=== PATIENT | female | born 1970 | race Caucasian/White ===

== ENCOUNTER 2017-06-13 15:26 | Inpatient (IN) | payer OTHER ==
--- NOTE | 2017-06-13 17:21 | RAD REPORT ---
EXAM DESCRIPTION: RAD - Chest Single View - 06/13/2017 5:15 pm CLINICAL HISTORY: ^Abdominal distention;Pain COMPARISON: CR; Chest 03/07/2012; . TECHNIQUE: AP portable chest image was obtained 1710 hrs . FINDINGS: Lungs are clear. Heart and vasculature are normal. No measurable pleural effusion and no p neumothorax. No gross bony abnormality seen. No acute aortic findings suspected. IMPRESSION: No acute cardiopulmonary process.
[2017-06-13] MEDS ORDERED: ONDANSETRON 4 MG/2 ML VIAL ONE (17:26)
[2017-06-13 17:59] LABS: Absolute Lymphocytes (CBC) 3.7 K/uL (0.7-4.9); Absolute Monocytes 0.5 K/uL (0.1-1.3); Absolute Neutrophil 6.4 K/uL (1.8-8.0); Basophils % 1.3 % (0-1.3); Eosinophils % 2.4 % (0-4.4); Hematocrit 43.7 % (36.0-45.0); Lymphocytes % 33.3 % (15.3-44.8); MCH 29.9 pg (27.0-35.0); MCV 91.5 fL (80-100); MPV 9.4 fL (7.6-11.3); Monocytes % 4.7 % (3.3-12.3); RBC Red Blood Cell Count 4.77 M/uL (3.86-4.86)
[2017-06-13] MEDS ORDERED: NA CHLORIDE 0.9% 1,000 ML ONE (18:02)
[2017-06-13] MEDS ORDERED: FENTANYL CITR 100 MCG/2 ML ONE (18:02)
[2017-06-13] MEDS ORDERED: CIPROFLOXACIN 400mg IV 400 MG/200 ML BAG IV ONE (18:02)
[2017-06-13] MEDS ORDERED: METRONIDAZOLE 500mg IVPB 500 MG/100 ML BAG IV ONE (18:02)
[2017-06-13 18:03] LABS: Protime INR 0.92
[2017-06-13 18:07] LABS: Potassium 3.8 mEq/L (3.6-5.0)
[2017-06-13 18:13] LABS: Albumin 3.9 g/dL (3.2-5.5); Bilirubin Direct 0.1 mg/dL (0-0.2); Bilirubin Total 0.3 mg/dL (0.3-1.2); Protein, Total 7.3 g/dL (6.0-8.3)
[2017-06-13 18:16] LABS: CKMB Creatine Kinase MB 0.9 ng/ml (0.3-4.0)
[2017-06-13 18:30] LABS: Urine Blood NEGATIVE (NEG); Urine Glucose NEGATIVE (NEG); Urine Protein NEGATIVE (NEG); Urine Specific Gravity 1.025 (1.005-1.030); Urine pH 6.5 (5.0-7.0)
[2017-06-13 18:37] LABS: Barbiturates NEGATIVE; Benzodiazepines POSITIVE; Cocaine NEGATIVE; Opiates POSITIVE; Phencyclidine NEGATIVE; THC Cannibis NEGATIVE
[2017-06-13 18:42] LABS: METHAMPHETAM POSITIVE
--- NOTE | 2017-06-13 18:59 | RAD REPORT ---
EXAM DESCRIPTION: CTAbdomen Pelvis W Contrast - 06/13/2017 6:48 pm CLINICAL HISTORY: Abdominal pain. COMPARISON: 05/07/2017 TECHNIQUE: Biphasic CT imaging of the abdomen and pelvis was performed with 100 ml non-ionic IV cont rast. All CT scans are performed using dose optimization technique as appropriate and may include automated exposure control or mA/KV adjustment according to patient size. FINDINGS: The lung bases are clear.Several gallstones are present in the gallbladder with a stone li subhash in the cystic duct. The gallbladder appears mildly distended. Mild diffuse fatty liver is seen. No intrahepatic biliary dilatation. The spleen, pancreas, adrenal g lands kidneys are within normal limits. No bowel obstruction, free air, free fluid or abscess. Sigmoid diverticulosis without diverticulitis. The appendix is normal. No evidence of significant lymphadenopathy. No suspicious bony findings. IMPRESSION: Cholelithiasis with a stone likely present in the cystic duct. Gallbladder distention is also seen. Consider followup gallbladder sonography for further evaluation.
--- NOTE | 2017-06-13 19:16 | ER ---
Nurse's Notes [facility] Name: Nany Bhat Age: 47 yrs Sex: Female : 1970 Arrival Date: 06/13/2017 Time: 15:29 Bed 26 Private MD: Ino Faye E Diagnosis: Cholelithiasis;Abdominal tenderness;Acute pancreatitis Presentation: 06/13 15:50 Presenting complaint: Patient states: I have a bad pancreas. I started hurting in my RUQ about 1730 last night. vomiting and diarrhea as well. Transition of care: patient was not received from another setting of care. Onset of symptoms was June 12, 2017 at 17:30. Initial Sepsis Screen: Does the patient meet any 2 criteria? No. Patient's initial sepsis screen is negative. Does the patient have a suspected source of infection? No. Patient's initial sepsis screen is negative. Care prior to arrival: None. 15:50 Method Of Arrival: Ambulatory 15:50 Acuity: ANTHONY 3 Triage Assessment: 15:53 General: Appears in no apparent distress. uncomfortable, Behavior is calm, cooperative, ch appropriate for age. Pain: Complains of pain in right upper quadrant Pain currently is 9 out of 10 on a pain scale. GI: Reports upper abdominal pain, diarrhea, vomiting. 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 - Social history:: Smoking status: Patient uses tobacco products, denies chronic smoking, but will smoke occasionally, Patient/guardian denies using alcohol, street drugs. - Family history:: not pertinent. Screenin:30 Abuse screen: Denies threats or abuse. Denies injuries from another. Nutritional kr2 screening: No deficits noted. Tuberculosis screening: No symptoms or risk factors identified. Fall Risk IV access (20 points). Assessment: 17:30 General: Appears in no apparent distress. comfortable, well developed, well nourished, kr2 Behavior is calm, cooperative. Pain: Complains of pain in left upper quadrant and right upper quadrant Pain radiates to abdomen Pain currently is 10 out of 10 on a pain scale. Quality of pain is described as aching, tender, Is continuous, Alleviated by nothing. Aggravated by increased activity. Neuro: Level of Consciousness is awake, alert, obeys commands, Oriented to person, place, time, situation. Cardiovascular: Capillary refill < 3 seconds in bilateral fingers Patient's skin is warm and dry. Respiratory: Airway is patent Respiratory effort is even, unlabored, Respiratory pattern is regular, symmetrical. GI: Bowel sounds present X 4 quads. Abd is soft X 4 quads Abdomen is tender to palpation in right upper quadrant and left upper quadrant Reports nausea, vomiting. : Urine is cloudy. EENT: Oral mucosa is dry. Derm: Skin is intact, is healthy with good turgor, Skin is pink, warm \T\ dry. Musculoskeletal: Circulation, motion, and sensation intact. 18:51 Reassessment: Patient appears in no apparent distress at this time. Patient and/or kr2 family updated on plan of care and expected duration. Pain level reassessed. Patient is alert, oriented x 3, equal unlabored respirations, skin warm/dry/pink. Patient states symptoms have improved. Vital Signs: 15:53 BP 110 / 76; Pulse 84; Resp 16; Temp 98.5; Pulse Ox 99% on R/A; Weight 90.72 kg; Height ch 5 ft. 1 in. (154.94 cm); Pain 9/10; 17:30 BP 142 / 65; Pulse 80; Resp 18; Pulse Ox 100% on R/A; kr2 18:59 BP 113 / 82; Pulse 80; Resp 18; Pulse Ox 100% on R/A; kr2 20:54 BP 111 / 45; Pulse 78; Resp 18; Temp 98.5(O); Pulse Ox 100% on R/A; kr2 15:53 Body Mass Index 37.79 (90.72 kg, 154.94 cm) ED Course: 15:29 Patient arrived in ED. mr 15:29 Ino Faye MD is Private Physician. mr 15:51 Triage completed. 15:53 Arm band placed on left wrist. Patient placed in waiting room. 16:36 Vickey Kelly MD is Attending Physician. jasmin 17:00 Patient has correct armband on for positive identification. Bed in low position. Call kr2 light in reach. Side rails up X2. Adult w/ patient. hall monitor on. Pulse ox on. NIBP on. Door closed. Lights dimmed. Warm blanket given. Head of bed elevated. 17:12 Hailee Osman, RN is Primary Nurse. kr2 17:13 X-ray completed. Portable x-ray completed in exam room. Patient tolerated procedure ml well. 17:14 XRAY Chest (1 view) In Process Unspecified. EDMS 17:35 Missed attempt(s): 22 gauge in right forearm. kr2 17:40 Inserted saline lock: 22 gauge in left forearm, using aseptic technique. Blood kr2 collected. 18:[address] via wheelchair. 18:48 CT Abd/Pelvis - W/Contrast In Process Unspecified. EDMS 19:13 Marimar Gifford MD is Hospitalizing Provider. jasmin 19:33 Ultrasound completed. Patient tolerated well. cy 19:36 US Abdomen Limited In Process Unspecified. EDMS 20:55 No provider procedures requiring assistance completed. Patient admitted, IV remains in kr2 place. Administered Medications: 18:12 Drug: Flagyl 500 mg Volume: 100 ml; Route: IVPB; Rate: 200 ml/hr; Infused Over: 30 kr2 mins; Site: left antecubital; 18:44 Follow up: Response: No adverse reaction; IV Status: Completed infusion kr2 18:13 Drug: NS 0.9% 1000 ml Route: IV; Rate: 1 bolus; Site: left antecubital; kr2 19:40 Follow up: Response: No adverse reaction; IV Status: Completed infusion kr2 18:13 Drug: Pepcid 20 mg Route: IVP; Site: left antecubital; kr2 18:45 Follow up: Response: No adverse reaction kr2 18:13 Drug: fentaNYL (PF) 50 mcg Route: IVP; Site: left antecubital; kr2 18:44 Follow up: Response: No adverse reaction; Pain is decreased kr2 18:13 Drug: Zofran 4 mg Route: IVP; Site: left antecubital; kr2 18:45 Follow up: Response: No adverse reaction kr2 18:57 Drug: Cipro 400 mg Volume: 200 ml; Route: IVPB; Infused Over: 60 mins; Site: left kr2 antecubital; 19:57 Follow up: Response: No adverse reaction; IV Status: Completed infusion kr2 19:21 Drug: fentaNYL (PF) 50 mcg Route: IVP; Site: left antecubital; kr2 19:40 Follow up: Response: No adverse reaction; Pain is decreased kr2 19:41 Drug: NS 0.9% 1000 ml Route: IV; Rate: 1 bolus; Site: left antecubital; kr2 21:50 Follow up: Response: No adverse reaction; IV Status: Completed infusion kr2 Outcome: 19:15 Decision to Hospitalize by Provider. jasmin 20:55 Admitted to Med/surg accompanied by tech, via wheelchair, room 228, with chart, Report kr2 called to Jeanne 20:55 Condition: stable 20:55 Instructed on the need for admit, Demonstrated understanding of instructions. 21:50 Patient left the ED. kr2 Signatures: Dispatcher [employer] EDMS Danisha Donahue, RN Vickey Pruitt ch, MD MD cha Rivera, Maria mr Lopez, Leyla Snow Karey, RN RN kr2 Bailey Esqueda
--- NOTE | 2017-06-13 19:16 | EDPHYS ---
Physician Documentation [facility] Name: Nany Bhat Age: 47 yrs Sex: Female : 1970 Arrival Date: 06/13/2017 Time: 15:29 Bed 26 Private MD: Ino Faye E ED Physician Vickey Kelly HPI: 06/13 16:50 This 47 yrs old Female presents to ER via Ambulatory with complaints of jasmin Abdominal Pain. 16:50 The patient presents with abdominal pain in the upper abdomen, in the lower abdomen. jasmin Onset: The symptoms/episode began/occurred 3 day(s) ago. The symptoms do not radiate. Associated signs and symptoms: none. The symptoms are described as burning, constant, sharp. Modifying factors: The symptoms are alleviated by nothing, the symptoms are aggravated by food, nothing. Severity of pain: At its worst the pain was moderate in the emergency department the pain is unchanged. The patient has experienced similar episodes in the past, multiple times. 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 - Social history:: Smoking status: Patient uses tobacco products, denies chronic smoking, but will smoke occasionally, Patient/guardian denies using alcohol, street drugs. - Family history:: not pertinent. ROS: 16:50 Constitutional: Negative for fever, chills, and weight loss, Eyes: Negative for injury, jasmin pain, redness, and discharge, ENT: Negative for injury, pain, and discharge, Neck: Negative for injury, pain, and swelling, Cardiovascular: Negative for chest pain, palpitations, and edema, Respiratory: Negative for shortness of breath, cough, wheezing, and pleuritic chest pain, Back: Negative for injury and pain, : Negative for injury, bleeding, discharge, and swelling, MS/Extremity: Negative for injury and deformity, Skin: Negative for injury, rash, and discoloration, Neuro: Negative for headache, weakness, numbness, tingling, and seizure, Psych: Negative for depression, anxiety, suicide ideation, homicidal ideation, and hallucinations, Allergy/Immunology: Negative for hives, rash, and allergies, Endocrine: Negative for neck swelling, polydipsia, polyuria, polyphagia, and marked weight changes. 16:50 Abdomen/GI: Positive for abdominal pain, nausea and vomiting. Exam: 16:50 Constitutional: This is a well developed, well nourished patient who is awake, alert, jasmin and in no acute distress. Head/Face: Normocephalic, atraumatic. Eyes: Pupils equal round and reactive to light, extra-ocular motions intact. Lids and lashes normal. Conjunctiva and sclera are non-icteric and not injected. Cornea within normal limits. Periorbital areas with no swelling, redness, or edema. ENT: Nares patent. No nasal discharge, no septal abnormalities noted. Tympanic membranes are normal and external auditory canals are clear. Oropharynx with no redness, swelling, or masses, exudates, or evidence of obstruction, uvula midline. Mucous membranes moist. Neck: Trachea midline, no thyromegaly or masses palpated, and no cervical lymphadenopathy. Supple, full range of motion without nuchal rigidity, or vertebral point tenderness. No Meningismus. Chest/axilla: Normal chest wall appearance and motion. Nontender with no deformity. No lesions are appreciated. Cardiovascular: Regular rate and rhythm with a normal S1 and S2. No gallops, murmurs, or rubs. Normal PMI, no JVD. No pulse deficits. Respiratory: Lungs have equal breath sounds bilaterally, clear to auscultation and percussion. No rales, rhonchi or wheezes noted. No increased work of breathing, no retractions or nasal flaring. Back: No spinal tenderness. No costovertebral tenderness. Full range of motion. Skin: Warm, dry with normal turgor. Normal color with no rashes, no lesions, and no evidence of cellulitis. MS/ Extremity: Pulses equal, no cyanosis. Neurovascular intact. Full, normal range of motion. Neuro: Awake and alert, GCS 15, oriented to person, place, time, and situation. Cranial nerves II-XII grossly intact. Motor strength 5/5 in all extremities. Sensory grossly intact. Cerebellar exam normal. Normal gait. Psych: Awake, alert, with orientation to person, place and time. Behavior, mood, and affect are within normal limits. 16:50 Abdomen/GI: Inspection: distension, Bowel sounds: normal, Palpation: mild abdominal tenderness, moderate abdominal tenderness, in the umbilical area, right upper quadrant and left upper quadrant. Vital Signs: 15:53 BP 110 / 76; Pulse 84; Resp 16; Temp 98.5; Pulse Ox 99% on R/A; Weight 90.72 kg; Height ch 5 ft. 1 in. (154.94 cm); Pain 9/10; 17:30 BP 142 / 65; Pulse 80; Resp 18; Pulse Ox 100% on R/A; kr2 18:59 BP 113 / 82; Pulse 80; Resp 18; Pulse Ox 100% on R/A; kr2 20:54 BP 111 / 45; Pulse 78; Resp 18; Temp 98.5(O); Pulse Ox 100% on R/A; kr2 15:53 Body Mass Index 37.79 (90.72 kg, 154.94 cm) [facility]: 16:36 Patient medically screened. [facility] 16:53 Data reviewed: vital signs, nurses notes, lab test result(s), EKG, radiologic studies. [facility] 06/13 16:50 Order name: Basic Metabolic Panel; Complete Time: 18:20 [facility] 06/13 16:50 Order name: BNP; Complete Time: 19:09 [facility] 06/13 16:50 Order name: CBC with Diff; Complete Time: 18:20 [facility] 06/13 16:50 Order name: Ckmb; Complete Time: 18:20 [facility] 06/13 16:50 Order name: CPK; Complete Time: 18:20 [facility] 06/13 16:50 Order name: LFT's; Complete Time: 18:20 [facility] 06/13 16:50 Order name: Magnesium; Complete Time: 18:20 [facility] 06/13 16:50 Order name: PT-INR; Complete Time: 18:20 [facility] 06/13 16:50 Order name: Ptt, Activated; Complete Time: 18:20 [facility] 06/13 16:50 Order name: Troponin (emerg Dept Use Only); Complete Time: 19:09 [facility] 06/13 16:50 Order name: Lipase; Complete Time: 18:20 [facility] 06/13 16:50 Order name: UDS; Complete Time: 19:09 [facility] 06/13 16:50 Order name: Urine Culture [facility] 06/13 17:03 Order name: AMMONIA; Complete Time: 18:20 [facility] 06/13 16:50 Order name: XRAY Chest (1 view); Complete Time: 17:51 [facility] 06/13 16:50 Order name: EKG; Complete Time: 16:51 [facility] 06/13 16:50 Order name: CT Abd/Pelvis - W/Contrast; Complete Time: 19:09 [facility] 06/13 18:24 Order name: Urine Dipstick--Ancillary (enter results); Complete Time: 19: 06/13 18:24 Order name: Urine --Ancillary (enter results); Complete Time: 19:09 06/13 19:10 Order name: US Abdomen Limited [facility] 06/13 19:23 Order name: CONS Physician Consult [facility] 06/13 19:23 Order name: Cholangiogram [facility] 06/13 16:50 Order name: Cardiac monitoring; Complete Time: 18:21 [facility] 06/13 16:50 Order name: EKG - Nurse/Tech; Complete Time: 18:21 [facility] 06/13 16:50 Order name: IV Saline Lock; Complete Time: 18:22 [facility] 06/13 16:50 Order name: Labs collected and sent; Complete Time: 18:22 [facility] 06/13 16:50 Order name: O2 Per Protocol; Complete Time: 18:22 [facility] 06/13 16:50 Order name: O2 Sat Monitoring; Complete Time: 18:22 [facility] 06/13 16:50 Order name: Urine Dipstick-Ancillary (obtain specimen); Complete Time: 18:22 [facility] 06/13 16:50 Order name: Urine Test (obtain specimen); Complete Time: 18:46 [facility] 06/13 19:23 Order name: CONS Physician Consult EDME Administered Medications: 18:12 Drug: Flagyl 500 mg Volume: 100 ml; Route: IVPB; Rate: 200 ml/hr; Infused Over: 30 kr2 mins; Site: left antecubital; 18:44 Follow up: Response: No adverse reaction; IV Status: Completed infusion kr2 18:13 Drug: NS 0.9% 1000 ml Route: IV; Rate: 1 bolus; Site: left antecubital; kr2 19:40 Follow up: Response: No adverse reaction; IV Status: Completed infusion kr2 18:13 Drug: Pepcid 20 mg Route: IVP; Site: left antecubital; kr2 18:45 Follow up: Response: No adverse reaction kr2 18:13 Drug: fentaNYL (PF) 50 mcg Route: IVP; Site: left antecubital; kr2 18:44 Follow up: Response: No adverse reaction; Pain is decreased kr2 18:13 Drug: Zofran 4 mg Route: IVP; Site: left antecubital; kr2 18:45 Follow up: Response: No adverse reaction kr2 18:57 Drug: Cipro 400 mg Volume: 200 ml; Route: IVPB; Infused Over: 60 mins; Site: left kr2 antecubital; 19:57 Follow up: Response: No adverse reaction; IV Status: Completed infusion kr2 19:21 Drug: fentaNYL (PF) 50 mcg Route: IVP; Site: left antecubital; kr2 19:40 Follow up: Response: No adverse reaction; Pain is decreased kr2 19:41 Drug: NS 0.9% 1000 ml Route: IV; Rate: 1 bolus; Site: left antecubital; kr2 21:50 Follow up: Response: No adverse reaction; IV Status: Completed infusion kr2 Disposition: 06/13/17 19:15 Hospitalization ordered by Marimar Gifford for Inpatient Admission. Preliminary diagnosis are Cholelithiasis, Abdominal tenderness, Acute pancreatitis. - Bed requested for Telemetry/MedSurg (Inpatient). - Status is Inpatient Admission. kr2 - Condition is Fair. - Problem is new. - Symptoms have improved. UTI on Admission? No Signatures: Dispatcher [employer] Danisha Muñiz, RN Elvira Mcallister ch, RN RN dw Anderson, Corey, MD MD cha Reaves, Karey, RN RN kr2
--- NOTE | 2017-06-13 19:45 | RAD REPORT ---
EXAM DESCRIPTION: US - Abdomen Exam Limited - 06/13/2017 7:36 pm CLINICAL HISTORY: Abdominal pain. COMPARISON: 10/28/2016 FINDINGS: The gallbladder demonstrates several gallstones. A gallstone is noted in the region of the gallbladder neck/ cystic duct which is nonmobile. No pericholecystic fluid or gallbladder wall thick ening. The common bile duct is normal measuring 5 mm. The liver demonstrates no findings of intrahepatic biliary dilatation. IMPRESSION: Cholelithiasis without sonographic evidence of acute cholecystitis.
--- NOTE | 2017-06-13 21:28 | P.HP ---
Certification for Inpatient Patient admitted to: Inpatient With expected LOS: >2 Midnights Practitioner: I am a practitioner with admitting privileges, knowledge of patient current condition, hospital course, and medical plan of care. Services: Services provided to patient in accordance with Admission requirements found in Title 42 Section 412.3 of the Code of Federal Regulations Patient History Date of Service: 06/13/17 Reason for admission: cholelithiasis History of Present Illness: Ms Bhat is a 47 years old woman with history of bipolar disorder, methamphetamines abuse, chronic pain syndrome, who start about 2 days ago with abdominal pain. The pain is diffuse but mostly localized in RUQ. She has had fever at home 100.4 F, also nausea, vomiting and diarrhea. Previously, she was diagnosed with cholelithiasis. Today CT abd/pelivis shows again cholelithiasis, with a stone in the cystic duct. In ER she was afebrile, WBC 11K. The intensity of pain was 10/10. Allergies Penicillins Allergy (Intermediate, Verified 10/01/16 08:00) SWELLING/RASH morphine Adverse Reaction (Severe, Verified 10/01/16 08:00) HALLUCINATE/SKIN TURNS RED Home Medications: Nicotine [Nicoderm*] 21 mg TD DAILY #30 10/03/16 Ondansetron HCl [Zofran] 4 mg PO TID PRN #20 tablet 10/03/16 Pantoprazole [Protonix Tab] 40 mg PO DAILY #30 tab 10/03/16 traMADol HCL [Ultram*] 50 mg PO TIDP PRN #15 tab 10/03/16 - Past Medical/Surgical History Diabetic: No -: Hepatitis-C, treated -: Chronic recurrent pancreatitis -: History DVT, treated 1996 -: Tobacco abuse -: Bipolar disorder -: Chronic pain -: Carpal tunnel syndrome -: Hysterectomy -: Carpal tunnel surgery Psychosocial/ Personal History: The patient is single. She has 1 child. She is currently disabled - Family History Father -: Heart disease, Hypertension, Diabetes - Social History Smoking Status: Current some day smoker Counseled patient to stop smoking for: less than 10 minutes Alcohol use: No CD- Drugs: No Caffeine use: No Place of Residence: Home Review of Systems 10-point ROS is otherwise unremarkable Physical Examination - Physical Exam General: Alert, In no apparent distress HEENT: Atraumatic, PERRLA, Mucous membr. moist/pink, EOMI, Sclerae nonicteric Neck: Supple, 2+ carotid pulse no bruit, No LAD, Without JVD or thyroid abnormality Respiratory: Normal air movement Cardiovascular: Regular rate/rhythm, Normal S1 S2 Gastrointestinal: Normal bowel sounds, No tenderness Musculoskeletal: No tenderness Integumentary: No rashes Neurological: Normal speech, Normal strength at 5/5 x4 extr, Normal tone, Normal affect Lymphatics: No axilla or inguinal lymphadenopathy - Studies Laboratory Data (last 24 hrs) 06/13/17 17:20: PT 10.8, INR 0.92, APTT 27.4 06/13/17 17:20: WBC 11.0 H, Hgb 14.3, Hct 43.7, Plt Count 247 06/13/17 17:20: B-Natriuretic Peptide 31 06/13/17 17:20: Sodium 138, Potassium 3.8, BUN 15, Creatinine 0.88, Glucose 94, Magnesium 2.0, Total Bilirubin 0.3, AST 35, ALT 41, Alkaline Phosphatase 46, Lipase 76 H Assessment and Plan - Problems (Diagnosis) (1) Abdominal pain Onset Date: 10/03/16 Current Visit: No Status: Acute Qualifiers: Abdominal location: generalized Qualified Code(s): R10.84 - Generalized abdominal pain (2) Nausea and vomiting Onset Date: 10/03/16 Current Visit: No Status: Acute Qualifiers: Vomiting type: unspecified Vomiting Intractability: unspecified Qualified Code(s): R11.2 - Nausea with vomiting, unspecified (3) Bipolar disorder Onset Date: 10/03/16 Current Visit: No Status: Chronic Qualifiers: Active/Remission status: remission status unspecified Qualified Code(s): F31.9 - Bipolar disorder, unspecified (4) Cholelithiasis Onset Date: 10/03/16 Current Visit: No Status: Chronic Qualifiers: Cholelithiasis location: gallbladder Cholecystitis presence: without cholecystitis Biliary obstruction: without biliary obstruction Qualified Code(s): K80.20 - Calculus of gallbladder without cholecystitis without obstruction (5) Chronic pain Onset Date: 10/03/16 Current Visit: No Status: Chronic Qualifiers: Chronic pain type: other chronic pain Qualified Code(s): G89.29 - Other chronic pain - Plan The patient will be admitted to the hospital due to symptomatic cholelithiasis. No signs of cholecystitis, however, there is a stone in the cystic duct, without dilation. MRCP already ordered. Consult surgery and GI team. Since the patient states that she has had fever, will cover empirically with IV abx. - Advance Directives Does patient have a Living Will: No Does patient have a Durable POA for Healthcare: No - Code Status/Comfort Care Code Status Assessed: Yes Code Status: Full Code
[2017-06-13] MEDS ORDERED: ACETAMINOPHEN 500 MG TAB PO PRN (21:51)
[2017-06-13 22:06] VITALS: BMI 35.8
--- NOTE | 2017-06-13 22:36 | EKG ---
Test Date: 2017-06-13 Test Time: 17:00:24 Performance Improvement Coordinator: ORALIA MEASUREMENT RESULTS: Intervals: Rate: 80 TN: 116 QRSD: 80 QT: 352 QTc: 405 [place]: P: 52 TN: 116 QRS: 48 T: 49 INTERPRETIVE STATEMENTS: Normal sinus rhythm Normal ECG Compared to ECG 10/01/2016 09:25:19 No significant changes Electronically Signed On 06-13-17 22:35:45 CDT by Rafael Britt
[2017-06-13] MEDS: NA CHLORIDE 0.9% 1,000 ML IV SCH (22:43)
[2017-06-13] MEDS: KETOROLAC 30 MG/ML INJ IV PRN (22:45)
--- NOTE | 2017-06-13 22:52 | P.CNS ---
Date of Consult: 06/13/17 PC: I was asked to see this 47-year-old female regards to her right upper quadrant abdominal pain and cholelithiasis HPC: Patient presents emergency room with severe right upper quadrant abdominal pain for diagnosis and treatment. Then having abdominal pain at home for the last day. Pain intensified and she came to the hospital and she did not get relief. PMH: Bipolar, chronic pain PSHx: Previous hysterectomy SOC: Allergic to penicillin, tramadol, and morphine SYS REVIEW: Since she has been in reasonable health O/E awake alert vital signs are stable HEENT: Not clinically jaundice Chest: Chest movement equal bilaterally ABD: Protuberant abdomen, but no fluid thrill. Tender in the right upper quadrant LOCO: Intact DATA: Mildly elevated white cell count, ultrasound shows stones in the gallbladder N in the vicinity of the cystic duct IMPRESSION: Cholelithiasis PLAN: The patient has been admitted at this time for observation pain control. MRCP is common GI consoles have been ordered. Will await the results of these and determine if and when surgical intervention can be done. Thank you
[2017-06-14] MEDS: ALPRAZOLAM 1 MG TABLET PO PRN ×3 (00:33→21:36)
[2017-06-14] MEDS: METRONIDAZOLE 500mg IVPB 500 MG/100 ML BAG IV SCH ×3 (00:34→16:22)
[2017-06-14] MEDS: CIPROFLOXACIN 400mg IV 400 MG/200 ML BAG IV SCH ×2 (02:59→14:02)
[2017-06-14 05:57] LABS: Absolute Lymphocytes (CBC) 2.9 K/uL (0.7-4.9); Absolute Monocytes 0.5 K/uL (0.1-1.3); Basophils % 0.8 % (0-1.3); Eosinophils % 2.6 % (0-4.4); Hematocrit 38.4 % (36.0-45.0); Lymphocytes % 33.2 % (15.3-44.8); MCH 31.2 pg (27.0-35.0); MCV 90.2 fL (80-100); MPV 9.1 fL (7.6-11.3); Monocytes % 5.4 % (3.3-12.3); RBC Red Blood Cell Count 4.26 M/uL (3.86-4.86)
[2017-06-14 06:09] LABS: Albumin 2.9 g/dL (3.2-5.5); Bilirubin Total 0.4 mg/dL (0.3-1.2); Potassium 3.6 mEq/L (3.6-5.0); Protein, Total 5.6 g/dL (6.0-8.3)
[2017-06-14] MEDS ORDERED: KCL 20 MEQ/100 mL IVPB 20 MEQ/100 ML BAG IV SCH (07:00)
[2017-06-14] MEDS ORDERED: SODIUM CHLORIDE 0.9% 10ML INJ IV PRN (07:55)
--- NOTE | 2017-06-14 09:08 | RAD REPORT ---
EXAM DESCRIPTION: MRIAbdomen (Gallbladder) CLINICAL HISTORY: Abdominal pain COMPARISON: 06/13/2017 CT and ultrasound study. FINDINGS: No intrahepatic biliary dilatation is seen. The gallbladder appears mildly distended. The patient has known gallstones, however, they are not well seen on this study. Common bile duct is mildly prominent measuring up to 7 mm. A small hypointensity is seen in the dista l common bile duct suspicious for a small distal common bile duct stone. T2 weighted imaging to liver, spleen, pancreas, adrenal glands and kidneys show no worrisome finding. Benign cortical left renal cyst noted superolateral left kidney measuring 14 mm. No bulky adenopathy or free fluid in the abdomen. IMPRESSION: Small distal common bile duct stone is suspected. No significant biliary dilatation is seen. Cholelithiasis.
[2017-06-14] MEDS: PANTOPRAZOLE 40 MG INJ IVP SCH (09:30)
[2017-06-14] MEDS: KETOROLAC 30 MG/ML INJ IV PRN ×2 (09:30→18:44)
[2017-06-14] MEDS: NA CHLORIDE 0.9% 1,000 ML IV SCH ×2 (09:30→14:02)
--- NOTE | 2017-06-14 19:53 | PN ---
Date of Progress Note: 06/14/2017 Subjective: The patient seen and examined, chart reviewed, and case discussed with RN. The patient had MRCP today, which did show a ductal stone. Her pain is improved, however, not resolved. No furt her nausea and vomiting. Review of Systems: Negative except as above. Medications: Reviewed. Physical Examination: Vital Signs: Temperature 97, heart rate 85, blood pressure 109/70, respirations 16, and O2 96% on ro om air. General: Awake, alert, oriented x3, ill-appearing, morbidly obese female. CV: S1, S2. No murmurs. Regular rate and rhythm. Peripheral pulses present. Respiratory: Moving air well bilaterally. No wheezing. No stridor. No use of accessory muscles Ga strointestinal: Abdomen is soft. Tenderness to palpation in the right upper quadrant and epigastric region. No rebound. Some voluntary guarding is present. Bowel sounds hypoactive. Extremities: No clubbing, cyanosis, edema. Neurologic: Nonfocal. Laboratory Data: Sodium 135, potassium 3.6, chloride 107, CO2 24, BUN 12, creatinine 0.77, glucose 9 7, calcium 8, total bilirubin 0.4, AST 32, ALT 37, alkaline phosphatase 35, albumin 2.9, and lipase 7 6. WBC 8.6, H and H 13.3, 38.4, and platelets 186. MRCP shows small distal common bile duct stone s uspected. No significant biliary dilatation seen. Cholelithiasis. Benign cortical left renal cyst 14 mm. Assessment: A 47-year-old female with; 1.Abdominal pain, right upper quadrant and epigastric secondary to choledocholithiasis. 2.Intractable nausea, vomiting secondary to choledocholithiasis. 3.Choledocholithiasis and cholelithiasis without cholecystitis. No biliary obstruction. Total bili yang is normal. MRCP does show stone. GI has been consulted. May need ERCP. 4.Bipolar disorder. 5.Chronic pain syndrome, stable. We will resume home medications. Plan: Continue IV fluids, IV antibiotics. Follow up with GI recommendations. /[email or web address] Voice ID: [id number] Report ID: [id number]
--- NOTE | 2017-06-14 19:58 | P.PN ---
Date of Service: 06/14/17 S.: Patient states that she feels somewhat better today pain is not as bad. Still has some back issues. Has been up moving around today. Went down for an MRCP. O.: Abdomen soft A: Patient's MRCP apparently came back positive for stone at the distal of the common bile duct. She is to undergo an ERCP tomorrow with Dr. Mcfarland. P: Patient is having her ERCP procedure done tomorrow. I would prefer to wait 2 weeks if possible to take the gallbladder out. We will see how she is once she has her stone removed.
[2017-06-15] MEDS: METRONIDAZOLE 500mg IVPB 500 MG/100 ML BAG IV SCH ×3 (00:31→19:54)
[2017-06-15] MEDS: KETOROLAC 30 MG/ML INJ IV PRN (01:37)
[2017-06-15] MEDS: CIPROFLOXACIN 400mg IV 400 MG/200 ML BAG IV SCH ×2 (01:40→14:21)
[2017-06-15 06:09] LABS: Absolute Lymphocytes (CBC) 2.2 K/uL (0.7-4.9); Absolute Monocytes 0.5 K/uL (0.1-1.3); Absolute Neutrophil 5.2 K/uL (1.8-8.0); Basophils % 0.7 % (0-1.3); Eosinophils % 2.7 % (0-4.4); Hematocrit 40.3 % (36.0-45.0); Lymphocytes % 27.3 % (15.3-44.8); MCV 90.7 fL (80-100); MPV 9.2 fL (7.6-11.3); Monocytes % 6.1 % (3.3-12.3); RBC Red Blood Cell Count 4.45 M/uL (3.86-4.86)
[2017-06-15 06:12] LABS: Potassium 3.9 mEq/L (3.6-5.0)
[2017-06-15] MEDS: NA CHLORIDE 0.9% 1,000 ML IV SCH ×3 (06:27→23:27)
[2017-06-15] MEDS ORDERED: KCL 20 MEQ/100 mL IVPB 20 MEQ/100 ML BAG IV SCH (07:00)
[2017-06-15] MEDS: PANTOPRAZOLE 40 MG INJ IVP SCH (09:51)
[2017-06-15] MEDS: ONDANSETRON 4 MG/2 ML VIAL IV PRN (10:37)
[2017-06-15] MEDS: Morphine 2 MG/2 ML SYR IV PRN ×3 (10:38→19:55)
[2017-06-15] MEDS ORDERED: GENTAMICIN SULF 80 MG/2ML INJ ONE (11:08)
--- NOTE | 2017-06-15 16:28 | PN ---
Date of Progress Note: 06/15/2017 Subjective: The patient seen and examined. Chart reviewed and case discussed with RN. The patient complaining of pain, stating that her pain medication is not helping her. The patient also concerned about keeping the SCDs on; however, continues to go down multiple times to smoke despite advised aga inst smoking. She understands that smoking will delay her wound healing when she goes for surgery. The patient, however, continues to go downstairs to smoke. Review of Systems: Negative except as above. Medications: Reviewed. Physical Examination: Vital Signs: Temperature 97.3, heart rate 79, blood pressure 96/57, respirations 16, O2 97% on room air. General: Awake, alert, oriented x3, some mild distress. Obese female, BMI 35. CV: S1, S2. Regular rate and rhythm. Peripheral pulses present. Respiratory: Moving air well bilaterally. No wheezing. Gastrointestinal: Abdomen is soft. Mild tenderness to palpation in the right upper quadrant. No re bound. No guarding. No rigidity. Extremities: No clubbing, cyanosis, edema. Neurologic: Nonfocal. Laboratory Data: Sodium 136, potassium 3.9, chloride 109, CO2 22, BUN 10, creatinine 0.87, glucose 9 5, calcium 8. WBC 8.2, H and H 13.8 and 40.3, platelets 187. Assessment And Plan: A 47-year-old female with: 1.Abdominal pain, right upper quadrant and epigastric secondary to choledocholithiasis. 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 Blanc. 2.Intractable nausea and vomiting secondary to above, improved. 3.Choledocholithiasis and cholelithiasis. No biliary obstruction. Going for ERCP. 4.Bipolar disorder. 5.Chronic pain syndrome. Adjust pain medications. 6.Gastrointestinal and deep venous thrombosis prophylaxis. PPI and SCDs. No chemical anticoagulati on due to procedure. SA/MODL Voice ID: [id number] Report ID: [id number]
[2017-06-15] MEDS ORDERED: PROPOFOL 200 MG/20 ML VIAL IV ONE (16:56)
[2017-06-15] MEDS ORDERED: LIDOCAINE 1% MPF 5 ML VIAL ONE (16:56)
[2017-06-15] MEDS ORDERED: GLUCAGON 1 MG/VIAL IV ONE (17:57)
--- NOTE | 2017-06-15 18:17 | ENDO RPT ---
[address], [address] ERCP PROCEDURE REPORT EXAM DATE: 06/15/2017 PATIENT NAME: Nany Bhat MR #: [id number] BIRTHDATE: 1970 ATTENDING: Ino Blanc Dr STATUS: inpatient - [facility] PLAYER: Niharika Arredondo and Alise Delgado RN INDICATIONS: The patient is a 47 yr old Female here for an ERCP due to abnormal imaging, abdominal pain, abnormal Liver Function Tests, and gallstone pancreatitis PROCEDURE PERFORMED: ERCP with sphincterotomy and ERCP with stent placement MEDICATIONS: Per Anesthesia. CONSENT: The patient understands the risks and benefits of the procedure and understands that these risks include, but are not limited to: sedation, allergic reaction, infection, perforation and/or bleeding. Alternative means of evaluation and treatment include, among others: physical exam, x-rays, and/or surgical intervention. The patient elects to proceed with this endoscopic procedure. DESCRIPTION OF PROCEDURE: During intra-op preparation period all mechanical medical equipment was checked for proper function. Hand hygiene and appropriate measures for infection prevention was taken. Procedure, possible complications, and alternatives including but not limited to the possibility of bleeding, perforation, tear, infection, sepsis, need for surgery, need for blood transfusion, and anesthesia related complications were explained to the patient. In addition, 5-30% incidence of acute pancreatitis as a result of ERCP were explained. After the risks, benefits and alternatives of the procedure were thoroughly explained, Informed was verified, confirmed and timeout was successfully executed by the treatment team. With the patient in left semi-prone position, medications were administered intravenously.The [id number] ([id number]) was passed from the mouth into the esophagus and further advanced from the esophagus into the stomach. From stomach scope was directed to the descending duodenum. Major papilla was aligned with the duodenoscope. The scope position was confirmed fluoroscopically. Rest of the findings/therapeutics are given below. The scope was then completely withdrawn from the patient and the procedure completed. The pulse, BP, and O2 saturation were monitored and documented by the physician and the nursing staff throughout the entire procedure. The patient was cared for as planned according to standard protocol. The patient was then discharged to recovery in stable condition and with appropriate post procedure care. A stone was found in the cystic duct. The pancreatic duct was filled to the tail and appeared to be normal. Care was taken not to overfill the ductal system. ADVERSE EVENT: none IMPRESSIONS: 1. 3 mm stone in the cystic duct 2. The pancreatic duct was filled to the tail and appeared to be normal. Care was taken not to overfill the ductal system. 3. S/p sphincterotomy and 4. 7-5 plastic stent placement RECOMMENDATIONS: follow-up: GI lab 3 week(s) REPEAT EXAM: Return in 3 week(s) for ERCP. for biliary stent removal Ino Blanc Dr eSigned: Ino Blanc Dr 06/15/2017 6:17 PM cc: Dr. Aviles CPT CODES: ICD9 CODES: PATIENT NAME: Nany Bhat MR#: [id number]
--- NOTE | 2017-06-15 19:20 | RAD REPORT ---
EXAM DESCRIPTION: RAD - Fluoroscopy ERCP - 06/15/2017 6:46 pm FINDINGS: Right upper quadrant fluoroscopy performed. Multiple portable C-arm views were obtained during fluoroscopic assisted ERCP. Image quality is limited. Correlation is needed with findings during real-time fluoroscopic assessmen t.
[2017-06-15 21:32] VITALS: O2SAT 98
[2017-06-15] MEDS: ALPRAZOLAM 1 MG TABLET PO PRN (22:38)
[2017-06-15] MEDS ORDERED: Levofloxacin500mg IV 500 MG/100 ML BAG IV SCH (23:00)
[2017-06-16] MEDS: Morphine 2 MG/2 ML SYR IV PRN ×2 (00:37→04:56)
[2017-06-16] MEDS: METRONIDAZOLE 500mg IVPB 500 MG/100 ML BAG IV SCH ×2 (00:45→08:58)
--- NOTE | 2017-06-16 00:49 | CON ---
Date of Consultation: 06/15/2017 Reason For Consultation: A suspicion of choledocholithiasis with gallstone pancreatitis. History Of Present Illness: This patient is a 47-year-old white female with history of bipolar disor kathryn, ADHD, hepatitis C in the past treated successfully, recurrent pancreatitis, DVT, tobacco and amp hetamine abuse, chronic pain, carpal tunnel syndrome. History Of Present Illness: The patient presented to hospital with few days of right upper quadrant, midepigastric pain 9/10, now down to 5/10 with pain medications. She also had nausea, vomiting, fev ers, and chills. The patient found to have cholelithiasis on ultrasound of abdomen. CT abdomen and pelvis revealed cholelithiasis again, but with stone likely in the cystic duct. MRCP revealed possib le small distal common bile duct stone and multiple stones in gallbladder. The patient admitted to [facility] and GI consultation made. Surgery consultation also made. Past Medical History: Significant for bipolar disorder, ADHD, hepatitis C treated in past successful ly, chronic recurrent pancreatitis, DVT, tobacco abuse, amphetamine abuse, chronic pain syndrome, car pal tunnel syndrome, hysterectomy. Medications In Hospital: Include Tylenol Extra Strength, Xanax, Cipro, Toradol, Flagyl, morphine, Zo pepito, Protonix, normal saline. Allergies: TO PENICILLIN, TRAMADOL, MORPHINE, NICOTINE. Review of Systems: The patient had midepigastric right upper quadrant pain. No nausea, vomiting, fevers, chills. Denie s any melena, hematochezia, hematemesis, coffee-ground emesis, hematuria, dysuria, polydipsia, lower extremity edema, paresthesias, muscle aches, joint aches, backaches, but does have a right upper quad rant midepigastric pain. No chest pain, seizure, syncope lower extremity edema, paresthesias. Posit luis armando for bipolar disorder with depression and anxiety. Social History: She is a . of liver and kidney disease, possibly cancer. She has 4 children, also she says she feels very pride and enjoying. She smokes about a quarter pack of cig arettes per day. No alcohol. Family History: Father and mother both of myocardial infarction. Father had a history of diabe micheal and hypertension by chart review. Physical Examination: Vital Signs: The patient is 5 foot 1 inch, 189 pounds. BMI of 35.8 kg/m2. Temperature 98.8 degrees Fahrenheit, pulse 81, respirations 16, blood pressure 119/54, O2 saturation 99%. HEENT: Normocephalic, atraumatic. Anicteric. Pupils equal, round, and reactive to light. Extraocul ar movements are intact. Oropharynx clear. Neck: Supple. No masses. Respirations: Clear to auscultation bilaterally. Cardiac: Regular rate and rhythm. No gallops or rubs. Gastrointestinal: Positive bowel sounds. No hypoactive, soft, non-distended. Pain in the right upp er quadrant midepigastric area. Positive Arriaza sign though possible equivocal. Extremities: No clubbing, cyanosis, edema. 2+ pulses. NEURO: Alter and oriented X3. Grossly nonfocal. 5/5 motor strength. Sensation to light touch. Laboratory Data: The patient has a white count 11.0 on admission, on the first day, then 8.2, hemogl obin 13.8, hematocrit 40.3, MCV of 91, platelet count of 187, polys 63%, lymphocytes 27%, monocytes 6 %, eosinophils 3%, basophils 1%, PT of 10.8, INR of 0.92, PTT 27.4. The patient has a sodium 136, po tassium 3.9, chloride 109, bicarb 22, BUN of 10, creatinine of 0.9, glucose of 95, calcium of 8.0, to mayra bilirubin of 0.4, AST of 32, ALT of 37, alkaline phosphatase 35, ammonia 42. Troponin I of less than 0.03. Total protein 5.6, albumin 2.9. Lipase elevated on admission at 76. Urinalysis was nega tive including a negative test. Toxicology was positive for opiates, amphetamine and benzo diazepine on admission, at 18:15 on June 13 on admission date. Imaging: Showed ultrasound of abdomen, which revealed cholelithiasis without evidence of cholecystit is. CT of abdomen and pelvis revealed stone likely in the cystic duct with cholelithiasis in the gal lbladder. Gallbladder distention is also seen. An MRCP revealed small distal common bile duct stone suspected and gallstones in the gallbladder. Impression: 1.Choledocholithiasis, possible magnetic resonance cholangiopancreatographies revealed suspicion of small distal common bile duct stone and multiple gallstones in gallbladder. Ultrasound revealed chol elithiasis. CT revealed stone positive in the cystic duct. The patient has right upper quadrant mid epigastric pain, 9/10 maximum, now down to 5/10 on pain medicines. Positive for nausea, vomiting, fe vers, chills as well. 2.Gallstone pancreatitis. Elevated lipase to 76 with right upper quadrant and epigastric pain. The CT scan did not reveal pancreatitis, but 2/3 pain and elevated lipase can definite diagnosis of panc reatitis within this case, is likely gallstone pancreatitis. 3.Sepsis. White count of 11.0 on admission with IV antibiotics down to an 8.2. 4.History of bipolar disorder, attention deficit hyperactivity disorder, hepatitis C, successfully t reated in the past, chronic recurrent pancreatitis, deep vein thrombosis, tobacco and amphetamine abu se, chronic pain, carpal tunnel syndrome, hysterectomy. Recommendation: 1.Proceed with ERCP. Keep patient n.p.o. 2.Continue IV fluids and IV antibiotics. 3.Continue p.r.n. pain medications and antiemetics. 4.Agree with surgery consultation. JOSSY Voice ID: [id number] Report ID: [id number]
[2017-06-16] MEDS: ONDANSETRON 4 MG/2 ML VIAL IV PRN ×2 (01:31→07:40)
[2017-06-16 06:47] LABS: Absolute Monocytes 0.5 K/uL (0.1-1.3); Basophils % 0.5 % (0-1.3); Eosinophils % 2.3 % (0-4.4); Hematocrit 38.5 % (36.0-45.0); Lymphocytes % 26.1 % (15.3-44.8); MCH 30.7 pg (27.0-35.0); MCV 90.4 fL (80-100); MPV 9.2 fL (7.6-11.3); Monocytes % 5.9 % (3.3-12.3); RBC Red Blood Cell Count 4.26 M/uL (3.86-4.86)
[2017-06-16] MEDS: ALPRAZOLAM 1 MG TABLET PO PRN (08:58)
[2017-06-16] MEDS: PANTOPRAZOLE 40 MG INJ IVP SCH (08:58)
[2017-06-16] MEDS: NA CHLORIDE 0.9% 1,000 ML IV SCH (09:51)
[2017-06-16 10:44] VITALS: BP 104/63; TEMP 97.9
--- NOTE | 2017-06-17 12:02 | DS ---
Date of Discharge: 06/16/2017 Consultants: Dr. Blanco with General Surgery, Dr. Blanc with GI. Procedure: On 06/15/2017, ERCP with stent placement. Admitting Diagnoses: 1. Abdominal pain. 2. Intractable nausea, vomiting. 3. Bipolar disorder. 4. Cholelithiasis. 5. Chronic pain syndrome. Discharge Diagnoses: 1. Right upper quadrant abdominal pain secondary to cholelithiasis and choledocholithiasis, status post ERCP and stent placement. 2. Intractable nausea, vomiting, resolved. 3. Choledocholithiasis and cholelithiasis without biliary obstruction. 4. Bipolar disorder. 5. Chronic pain syndrome. 6. Obesity, BMI 35. Hospital Course: The patient is a 47-year-old female with history of bipolar disorder, methamphetamine abuse, chronic pain syndrome, comes in with right upper quadrant abdominal pain, fever, nausea, and vomiting. The patient has previous diagnosis of cholelithiasis, which was again revealed on CT scan with stone in the cystic duct. The patient had elevated white count. She was started on IV antibiotics, IV fluids, kept n.p.o. GI and General Surgery were consulted. The patient was taken for ERCP by Dr. Blanc as mentioned above with stent placement. The patient had improvement in her condition. She was no longer having any abdominal pain. No nausea or vomiting. She was able to tolerate her diet. Her white count normalized. Her UA was completely negative , however, a clean-catch specimen showed Staph epidermidis in the culture, which is likely contaminant. The patient denies any dysuria, frequency, or urgency. The patient's UDS was positive for amphetamines, benzos, and opiates. The patient was then doing well. Dr. Blanco recommended followup in 7 to 10 days after the acute inflammation has resolved for elective cholecystectomy. The patient was then cleared for discharge from professional employer consultant's standpoint and sent home in a stable condition. Activity: As tolerated. Medications: As per medication reconciliation list. Followup: Follow up with primary care physician in 2 to 3 days. Follow up with surgeon, Dr. Blanco in 7 to 10 days to schedule elective cholecystectomy. Follow up with GI, Dr. Blanc in 2 weeks. Return to ER for worsening condition. Diet: Davidson, no fried fatty food. Physical Examination: General: Awake, alert, oriented x3. No acute distress. Obese female. BMI 35. CV: S1, S2. No murmurs. Respiratory: Moving air well bilaterally. Gastrointestinal: Abdomen is soft, nontender, nondistended. Positive bowel sounds. Extremities: No clubbing, cyanosis, edema. Neurologic: Nonfocal. Total time spent dc pt was 31 minutes. /KRZYSZTOF Voice ID: [id number] Report ID: [id number] SATURNINO
== END 2017-06-16 10:56 | disposition home or self-care (01) | DRG 444 ==
LOC: ER 15:26 → ERHOLD 19:45 → 2ND 21:20
PROVIDERS: ADMIT Internal Medicine; ATTEND Family Medicine
PROC: 0F788ZZ Dilation of Cystic Duct, Via Natural or Artificial Opening Endoscopic (ICD-10-PCS; principal; 2017-06-15 17:00)
DX: K80.20 Calculus of gallbladder without cholecystitis without obstruction (principal); K85.90 Acute pancreatitis without necrosis or infection, unspecified; F31.9 Bipolar disorder, unspecified; G89.29 Other chronic pain; F17.210 Nicotine dependence, cigarettes, uncomplicated; F15.10 Other stimulant abuse, uncomplicated; F11.10 Opioid abuse, uncomplicated
CPT/HCPCS: 36415; 71045; 74177; 74181; 76705; 80048; 80053; 80076; 80307; 81003; 81025; 82140; 82550; 82553; 83690; 83735; 83880; 84484; 85025; 85610; 85730; 87077; 87086; 87088; 87186; 93005; 96361; 96365; 96367; 96375; 99285; C1769; C2625; C9113; J0744; J1580; J1610; J2270; J2405; J3010; J7030; Q9967

== ENCOUNTER 2017-06-17 04:00 | Emergency (ER) | payer OTHER ==
[2017-06-17] MEDS ORDERED: FENTANYL CITR 100 MCG/2 ML ONE (04:45)
[2017-06-17] MEDS ORDERED: NA CHLORIDE 0.9% 1,000 ML ONE (04:46)
[2017-06-17 05:00] LABS: Absolute Lymphocytes (CBC) 2.4 K/uL (0.7-4.9); Absolute Monocytes 0.4 K/uL (0.1-1.3); Absolute Neutrophil 4.3 K/uL (1.8-8.0); Basophils % 0.7 % (0-1.3); Eosinophils % 2.9 % (0-4.4); Hematocrit 40.9 % (36.0-45.0); Lymphocytes % 33.2 % (15.3-44.8); MCH 30.7 pg (27.0-35.0); MCV 91.8 fL (80-100); MPV 9.4 fL (7.6-11.3); Monocytes % 5.2 % (3.3-12.3); RBC Red Blood Cell Count 4.45 M/uL (3.86-4.86)
[2017-06-17 05:15] LABS: Potassium 4.2 mEq/L (3.6-5.0)
[2017-06-17 05:18] LABS: Albumin 3.6 g/dL (3.2-5.5); Bilirubin Direct 0.2 mg/dL (0-0.2); Bilirubin Total 0.6 mg/dL (0.3-1.2)
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
--- NOTE | 2017-06-17 05:24 | ER ---
Nurse's Notes [facility] Name: Nany Bhat Age: 47 yrs Sex: Female : 1970 Arrival Date: 06/17/2017 Time: 04:04 Bed 16 Private MD: Diagnosis: Generalized abdominal pain Presentation: 06/17 04:13 Presenting complaint: Patient states: that she had a stent placed in her gallbladder fc yesterday by Dr Blanc. Then this am at 0130 she started to have worsening pain, nausea, vomiting and diarrhea. Transition of care: patient was not received from another setting of care. Onset of symptoms was June 17, 2017 at 01:30. Initial Sepsis Screen: Does the patient meet any 2 criteria? No. Patient's initial sepsis screen is negative. Does the patient have a suspected source of infection? No. Patient's initial sepsis screen is negative. Care prior to arrival: None. 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 LMP N/A - Hysterectomy fc Historical: - Allergies: 04:19 Morphine; fc 04:19 tramadol; fc 04:19 PENICILLINS; fc - Home Meds: 04:19 Adderall XR 30 mg Oral cp24 1 cap twice a day [Active]; Xanax 2 mg Oral tab 1 tab 3 fc times per day [Active]; aspirin 81 mg Oral TbEC 1 tab once daily [Active]; Zofran (as hydrochloride) 4 mg oral tab as needed [Active]; Zantac 150 mg Oral tab 1 tab once daily [Active]; - PMHx: 04:19 ADD/ADHD; HEP C; left leg DVT; Depression; liver and pancrease laceration when she was fc 10; Chronic Pancreatitis; - PSHx: 04:19 Hysterectomy; Carpal Tunnel Repair; Tubal ligation; ERCP with gallbladder stent; fc - Immunization history:: Last tetanus immunization: up to date. - Social history:: Smoking status: Patient uses tobacco products, smokes one-half pack cigarettes per day. Screenin:16 Abuse screen: Denies threats or abuse. Nutritional screening: No deficits noted. fc Tuberculosis screening: No symptoms or risk factors identified. Fall Risk None identified. Assessment: 04:54 General: Appears uncomfortable, ill, Behavior is cooperative, anxious. Pain: Complains bs1 of pain in right upper quadrant Pain radiates to right side of back Pain currently is 10 out of 10 on a pain scale. Quality of pain is described as stabbing. Neuro: Level of Consciousness is awake, alert, obeys commands, Oriented to person, place, time, situation, Appropriate for age Atmospheric Drier Tender are equal bilaterally. Cardiovascular: Denies chest pain, shortness of breath, syncope, Heart tones S1 S2 present Capillary refill < 3 seconds Patient's skin is warm and dry. Respiratory: Airway is patent Trachea midline Respiratory effort is even, unlabored, Respiratory pattern is regular, symmetrical, Breath sounds are clear bilaterally. GI: Abdomen is round distended, Bowel sounds present X 4 quads. Abdomen is tender to palpation in right upper quadrant Guarding noted in right upper quadrant Reports upper abdominal pain, bloating, cramping, diarrhea, nausea, vomiting. : No deficits noted. No signs and/or symptoms were reported regarding the genitourinary system. EENT: No deficits noted. No signs and/or symptoms were reported regarding the EENT system. Derm: Skin is intact, Skin is pink, warm \T\ dry. Musculoskeletal: Circulation, motion, and sensation intact. Capillary refill < 3 seconds, Range of motion: intact in all extremities. 05:45 Reassessment: Patient appears in no apparent distress at this time. Patient and/or bs1 family updated on plan of care and expected duration. Pain level reassessed. Patient is alert, oriented x 3, equal unlabored respirations, skin warm/dry/pink. Patient states symptoms have improved. Vital Signs: 04:13 BP 120 / 67; Pulse 75; Resp 20; Temp 97.6(TE); Pulse Ox 98% on R/A; Weight 87.09 kg fc (R); Height 5 ft. 1 in. (154.94 cm) (R); Pain 9/10; 05:15 BP 115 / 66; Pulse 73; Resp 19; Temp 97.9(O); Pulse Ox 100% on R/A; Pain 5/10; bs1 04:13 Body Mass Index 36.28 (87.09 kg, 154.94 cm) ED Course: 04:04 Patient arrived in ED. al2 04:13 Arm band placed on Patient placed in an exam room, on a stretcher. 04:14 Sohail Nash MD is Attending Physician. 04:15 Triage completed. fc 04:16 Patient has correct armband on for positive identification. Bed in low position. Call light in reach. Pulse ox on. NIBP on. 04:16 No provider procedures requiring assistance completed. 04:24 Liz Bustamante, RN is Primary Nurse. bs1 04:40 Inserted saline lock: 22 gauge in right antecubital area, using aseptic technique. bs1 05:52 IV discontinued, bleeding controlled, No redness/swelling at site. Pressure dressing bs1 applied. Administered Medications: 04:50 Drug: NS 0.9% 1000 ml Route: IV; Rate: 1 bolus; Site: right antecubital; bs1 05:50 Follow up: IV Status: Completed infusion bs1 04:51 Drug: fentaNYL (PF) 75 mcg Route: IVP; Site: right antecubital; bs1 05:17 Follow up: Response: No adverse reaction bs1 Outcome: 05:23 Discharge ordered by MD. 05:52 Discharged to home bs1 05:52 Discharged to home ambulatory. 05:52 Condition: stable 05:52 Discharge instructions given to patient, Instructed on discharge instructions, follow up and referral plans. medication usage, Demonstrated understanding of instructions, follow-up care, medications, Prescriptions given X 1. 05:53 Patient left the ED. bs1 Signatures: Nidhi Marinelli RN CARIDAD Sohail Nash MD MD Lzi Bustamante RN RN bs1 Larisa Salomon
[2017-06-17 05:58] VITALS: BP 115/66; TEMP 97.9; O2SAT 100
== END 2017-06-17 05:53 | disposition home or self-care (01) ==
LOC: ER 04:00
DX: R10.84 Generalized abdominal pain (principal); F17.210 Nicotine dependence, cigarettes, uncomplicated; F32.9 Major depressive disorder, single episode, unspecified; F90.9 Attention-deficit hyperactivity disorder, unspecified type; Z79.82 Long term (current) use of aspirin; Z88.0 Allergy status to penicillin; Z88.5 Allergy status to narcotic agent; Z88.6 Allergy status to analgesic agent
CPT/HCPCS: 36415; 80048; 80076; 83690; 85025; 96361; 96374; 99284; J3010; J7030

== ENCOUNTER 2017-11-01 00:02 | Inpatient (IN) | payer OTHER ==
[2017-11-01] MEDS ORDERED: ONDANSETRON 4 MG/2 ML VIAL ONE (00:22)
[2017-11-01] MEDS ORDERED: FENTANYL CITR 100 MCG/2 ML ONE (00:22)
[2017-11-01] MEDS ORDERED: FAMOTIDINE 20 MG/2 ML VIAL IV ONE (00:23)
[2017-11-01 00:40] LABS: Absolute Lymphocytes (CBC) 3.5 K/uL (0.7-4.9); Absolute Monocytes 0.6 K/uL (0.1-1.3); Absolute Neutrophil 4.8 K/uL (1.8-8.0); Basophils % 0.9 % (0-1.3); Eosinophils % 2.5 % (0-4.4); Hematocrit 43.8 % (36.0-45.0); Lymphocytes % 38.2 % (15.3-44.8); MCH 30.7 pg (27.0-35.0); MCV 89.5 fL (80-100); MPV 8.4 fL (7.6-11.3); Monocytes % 6.1 % (3.3-12.3); RBC Red Blood Cell Count 4.89 M/uL (3.86-4.86)
[2017-11-01 00:43] LABS: Protime INR 0.96
[2017-11-01 01:19] LABS: ALT/SGPT 52 U/L (12-78); AST/SGOT 37 U/L (15-37); Albumin 3.7 g/dL (3.4-5.0); Alkaline Phosphatase 71 U/L (45-117); BUN Blood Urea Nitrogen 9 mg/dL (7-18); Bicarbonate 26 mmol/L (21-32); Bilirubin Direct 0.2 mg/dL (0-0.2); Bilirubin Total 0.7 mg/dL (0.2-1.0); Glucose Level 104 mg/dL (74-106); Lipase 464 U/L (73-393); Magnesium 2.4 mg/dL (1.8-2.4); NT PRO-BNP 53 pg/mL (<125); Potassium 3.5 mmol/L (3.5-5.1); Protein, Total 8.2 g/dL (6.4-8.2); Sodium Level 137 mmol/L (136-145); Troponin (Emerg Dept Use Only) < 0.02 ng/mL (0.0-0.045)
[2017-11-01 01:19] LABS: Barbiturates NEGATIVE (NEGATIVE); Benzodiazepines NEGATIVE (NEGATIVE); Cocaine NEGATIVE (NEGATIVE); METHAMPHETAM POSITIVE (NEGATIVE); Methadone NEGATIVE (NEGATIVE); Opiates POSITIVE (NEGATIVE); Phencyclidine NEGATIVE (NEGATIVE); THC Cannibis NEGATIVE (NEGATIVE)
[2017-11-01 02:31] LABS: Urine Blood TRACE (NEG); Urine Glucose NEGATIVE (NEG); Urine Protein NEGATIVE (NEG); Urine Specific Gravity 1.015 (1.005-1.030); Urine pH 6.5 (5.0-7.0)
--- NOTE | 2017-11-01 02:42 | ER ---
Nurse's Notes [facility] Name: Nany Bhat Age: 47 yrs Sex: Female : 1970 Arrival Date: 11/01/2017 Time: 00:09 Bed 7 Private MD: Diagnosis: Abdominal tenderness;Other chronic pancreatitis-acute/chronic;Cholelithiasis-CBD stent Presentation: 11/01 00:10 Presenting complaint: EMS states: Patient complains of RUQ pain that started this kr2 morning. She had a stent placed in her gallbladder earlier this year. She also reports using meth 2 days ago. Transition of care: patient was not received from another setting of care. Onset of symptoms was October 30, 2017. Risk Assessment: Do you want to hurt yourself or someone else? Patient reports no desire to harm self or others. Initial Sepsis Screen: Does the patient meet any 2 criteria? No. Patient's initial sepsis screen is negative. Does the patient have a suspected source of infection? No. Patient's initial sepsis screen is negative. Care prior to arrival: None. 00:10 Method Of Arrival: EMS: How do you roll? EMS kr2 00:10 Acuity: ANTHONY 3 kr2 Triage Assessment: 00:19 General: Appears uncomfortable, unkempt, Behavior is cooperative, crying. Pain: kr2 Complains of pain in epigastric area and right upper quadrant Pain radiates to back Pain currently is 8 out of 10 on a pain scale. Quality of pain is described as radiating, sharp, shooting, Pain began this morning Is continuous, Alleviated by nothing. Aggravated by eating, increased activity. GI: Abdomen is round distended, Reports nausea, vomiting, since this morning. 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 - Social history:: Smoking status: Patient uses tobacco products, 3-4 cigarettes/day, Patient uses street drugs, Methamphetamine (Meth). - Ebola Screening: : No symptoms or risks identified at this time. - Family history:: not pertinent. Screenin:21 Abuse screen: Denies threats or abuse. Denies injuries from another. Nutritional kr2 screening: No deficits noted. Tuberculosis screening: No symptoms or risk factors identified. Fall Risk None identified. Assessment: 00:22 GI: Bowel sounds present X 4 quads. Abdomen is tender to palpation in right upper kr2 quadrant. 01:30 Reassessment: Patient and/or family updated on plan of care and expected duration. Pain lp1 level reassessed. Patient states pain to RUQ continued. 02:19 Reassessment: Patient unable to tolerate oral contrast, provider notified. lp1 03:27 Reassessment: Patient appears in no apparent distress at this time. Patient states ak1 symptoms have improved. pt resting with eyes closed, resp even and unlabored. will continue to monitor. . Vital Signs: 00:13 BP 134 / 93; Pulse 108; Resp 20; Temp 98.7; Pulse Ox 99% on R/A; Pain 8/10; kr2 02:00 BP 111 / 77; Pulse 95; Resp 16; Pulse Ox 100% on R/A; lp1 03:28 BP 100 / 57; Pulse 94; Resp 16; Temp 98.7; Pulse Ox 100% on R/A; Pain 0/10; ak1 04:12 BP 110 / 80; Pulse 68; Resp 16; Pulse Ox 98% on R/A; ak1 ED Course: 00:09 Patient arrived in ED. kr2 00:10 Vickey Kelly MD is Attending Physician. jasmin 00:13 Triage completed. kr2 00:13 Missed attempt(s): 22 gauge in left antecubital area. lp1 00:21 Arm band placed on right wrist. kr2 00:22 Patient has correct armband on for positive identification. Placed in gown. Bed in low kr2 position. Call light in reach. Side rails up X 1. Pulse ox on. NIBP on. Door closed. Warm blanket given. Head of bed elevated. 00:24 Inserted saline lock: 18 gauge in right antecubital area, using aseptic technique. ds4 Blood collected. 00:42 X-ray completed. Portable x-ray completed in exam room. Patient tolerated procedure kw well. 00:43 XRAY Chest (1 view) In Process Unspecified. EDMS 00:50 Urine Drug Screen Sent. ds4 00:51 Salicylate Sent. ds4 00:52 Troponin (emerg Dept Use Only) Sent. ds4 00:52 Magnesium Sent. ds4 00:52 LFT's Sent. ds4 00:52 Basic Metabolic Panel Sent. ds4 00:52 Lipase Sent. ds4 00:52 NT PRO-BNP Sent. ds4 00:52 ETOH Level Sent. ds4 00:52 Acetaminophen Sent. ds4 00:58 Urine Culture Sent. ds4 00:58 Urine Dipstick--Ancillary (enter results) Sent. ds4 02:19 Rukhsana Quinn, RN is Primary Nurse. lp1 02:20 No provider procedures requiring assistance completed. lp1 02:40 Marimar Gifford MD is Hospitalizing Provider. jasmin 02:56 CT Abd/Pelvis - W/Contrast In Process Unspecified. EDMS 02:59 CT completed. Pt tolerated procedure poorly. Patient moved to CT via stretcher. Patient eh moved back from CT. 03:20 Patient admitted, IV remains in place. ak1 Administered Medications: 00:31 Drug: Pepcid 20 mg Route: IVP; Site: right antecubital; lp1 01:30 Follow up: Response: No adverse reaction lp1 00:31 Drug: fentaNYL (PF) 50 mcg Route: IVP; Site: right antecubital; lp1 01:00 Follow up: Response: Pain is decreased lp1 00:31 Drug: Zofran 4 mg Route: IVP; Site: right antecubital; lp1 01:30 Follow up: Response: Nausea is decreased lp1 02:24 Drug: fentaNYL (PF) 50 mcg Route: IVP; Site: right antecubital; lp1 03:20 Follow up: Response: No adverse reaction ak1 03:19 Drug: levofloxacin 500 mg Volume: 100 ml; Route: IVPB; Infused Over: 60 mins; Site: ak1 right antecubital; 04:17 Follow up: IV Status: Completed infusion ak1 03:19 Drug: NS 0.9% 1000 ml Route: IV; Rate: 1 bolus; Site: right antecubital; ak1 04:16 Follow up: IV Status: Completed infusion ak1 03:19 Drug: NS 0.9% 1000 ml Route: IV; Rate: 125 ml/hr; Site: right antecubital; ak1 04:19 Follow up: IV Status: Infusion continued upon admission ak1 03:20 Drug: Flagyl 500 mg Volume: 100 ml; Route: IVPB; Rate: 200 ml/hr; Infused Over: 30 ak1 mins; Site: right antecubital; 04:12 Follow up: IV Status: Completed infusion ak1 Outcome: 02:41 Decision to Hospitalize by Provider. jasmin 03:20 Condition: stable ak1 03:20 Instructed on the need for admit. 04:28 Admitted to Med/surg accompanied by tech, via stretcher, room 230, with chart, Report ak1 called to Hyun Cedeno RN 04:34 Patient left the ED. ak1 Signatures: Dispatcher [employer] EDVickey Ritter MD MD cha Hagler, Ervin eh Whitley, Kimberlee kw Pena, Laura, CARIDAD RN lp1 Aleksey Balderrama4 Edie Aldana RN RN ak1 Hailee Osman RN RN kr2
--- NOTE | 2017-11-01 02:42 | EDPHYS ---
Physician Documentation [facility] Name: Nany Bhat Age: 47 yrs Sex: Female : 1970 Arrival Date: 11/01/2017 Time: 00:09 Bed 7 Private MD: ED Physician Vickey Kelly HPI: 11/01 00:22 This 47 yrs old Female presents to ER via EMS with complaints of Abdominal ajsmin Pain. 00:22 The patient presents with abdominal pain in the upper abdomen, in the right upper jasmin quadrant, abdominal distention in the upper abdomen, in the lower abdomen. Onset: The symptoms/episode began/occurred 2 day(s) ago. The symptoms do not radiate. Associated signs and symptoms: none. The symptoms are described as constant, crampy. Modifying factors: The symptoms are alleviated by nothing, the symptoms are aggravated by nothing. Severity of pain: At its worst the pain was moderate in the emergency department the pain is unchanged. 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 - Social history:: Smoking status: Patient uses tobacco products, 3-4 cigarettes/day, Patient uses street drugs, Methamphetamine (Meth). - Ebola Screening: : No symptoms or risks identified at this time. - Family history:: not pertinent. ROS: 00:22 Constitutional: Negative for fever, chills, and weight loss, Eyes: Negative for injury, jasmin pain, redness, and discharge, ENT: Negative for injury, pain, and discharge, Neck: Negative for injury, pain, and swelling, Cardiovascular: Negative for chest pain, palpitations, and edema, Respiratory: Negative for shortness of breath, cough, wheezing, and pleuritic chest pain, Back: Negative for injury and pain, : Negative for injury, bleeding, discharge, and swelling, MS/Extremity: Negative for injury and deformity, Skin: Negative for injury, rash, and discoloration, Neuro: Negative for headache, weakness, numbness, tingling, and seizure, Psych: Negative for depression, anxiety, suicide ideation, homicidal ideation, and hallucinations, Allergy/Immunology: Negative for hives, rash, and allergies, Endocrine: Negative for neck swelling, polydipsia, polyuria, polyphagia, and marked weight changes, Hematologic/Lymphatic: Negative for swollen nodes, abnormal bleeding, and unusual bruising. 00:22 Abdomen/GI: Positive for abdominal pain, nausea and vomiting, of the right upper quadrant. 00:22 MS/extremity: Negative for acute changes. Exam: 00:22 Constitutional: This is a well developed, well nourished patient who is awake, alert, jasmin and in no acute distress. Head/Face: Normocephalic, atraumatic. Eyes: Pupils equal round and reactive to light, extra-ocular motions intact. Lids and lashes normal. Conjunctiva and sclera are non-icteric and not injected. Cornea within normal limits. Periorbital areas with no swelling, redness, or edema. ENT: Nares patent. No nasal discharge, no septal abnormalities noted. Tympanic membranes are normal and external auditory canals are clear. Oropharynx with no redness, swelling, or masses, exudates, or evidence of obstruction, uvula midline. Mucous membranes moist. Neck: Trachea midline, no thyromegaly or masses palpated, and no cervical lymphadenopathy. Supple, full range of motion without nuchal rigidity, or vertebral point tenderness. No Meningismus. Chest/axilla: Normal chest wall appearance and motion. Nontender with no deformity. No lesions are appreciated. Cardiovascular: Regular rate and rhythm with a normal S1 and S2. No gallops, murmurs, or rubs. Normal PMI, no JVD. No pulse deficits. Respiratory: Lungs have equal breath sounds bilaterally, clear to auscultation and percussion. No rales, rhonchi or wheezes noted. No increased work of breathing, no retractions or nasal flaring. Back: No spinal tenderness. No costovertebral tenderness. Full range of motion. Skin: Warm, dry with normal turgor. Normal color with no rashes, no lesions, and no evidence of cellulitis. MS/ Extremity: Pulses equal, no cyanosis. Neurovascular intact. Full, normal range of motion. Neuro: Awake and alert, GCS 15, oriented to person, place, time, and situation. Cranial nerves II-XII grossly intact. Motor strength 5/5 in all extremities. Sensory grossly intact. Cerebellar exam normal. Normal gait. Psych: Awake, alert, with orientation to person, place and time. Behavior, mood, and affect are within normal limits. 00:22 Abdomen/GI: Inspection: distension, Bowel sounds: hyperactive, Palpation: moderate abdominal tenderness, in all quadrants, Liver: no appreciated palpable abnormalities, Hernia: not appreciated. 00:27 Cardiovascular: Rate: tachycardic, Rhythm: regular, Heart sounds: normal, normal S1and jasmin S2, no S3 or S4, no murmur, no rub, no gallop, JVD: is not appreciated. 00:27 Musculoskeletal/extremity: DVT Exam: No signs of deep vein thrombosis. no pain, no swelling, no tenderness, negative Homans' sign noted on exam, no appreciated bluish discoloration, no erythema, no increased warmth. Vital Signs: 00:13 BP 134 / 93; Pulse 108; Resp 20; Temp 98.7; Pulse Ox 99% on R/A; Pain 8/10; kr2 02:00 BP 111 / 77; Pulse 95; Resp 16; Pulse Ox 100% on R/A; lp1 03:28 BP 100 / 57; Pulse 94; Resp 16; Temp 98.7; Pulse Ox 100% on R/A; Pain 0/10; ak1 04:12 BP 110 / 80; Pulse 68; Resp 16; Pulse Ox 98% on R/A; ak1 MDM: 00:10 Patient medically screened. [facility] 00:27 Data reviewed: vital signs, nurses notes, lab test result(s), EKG, radiologic studies, [facility] CT scan, plain films. 11/01 00:12 Order name: Basic Metabolic Panel; Complete Time: 02:35 [facility] 11/01 00:12 Order name: CBC with Diff; Complete Time: 02:35 [facility] 11/01 00:12 Order name: LFT's; Complete Time: 02:35 [facility] 11/01 00:12 Order name: Magnesium; Complete Time: 02:35 [facility] 11/01 00:12 Order name: NT PRO-BNP; Complete Time: 02:35 [facility] 11/01 00:12 Order name: PT-INR; Complete Time: 02:35 [facility] 11/01 00:12 Order name: Troponin (emerg Dept Use Only); Complete Time: 02:35 [facility] 11/01 00:12 Order name: Lipase; Complete Time: 02:35 [facility] 11/01 00:12 Order name: Acetaminophen; Complete Time: 02:35 [facility] 11/01 00:12 Order name: ETOH Level; Complete Time: 02:35 [facility] 11/01 00:12 Order name: Ptt, Activated; Complete Time: 02:35 [facility] 11/01 00:12 Order name: Salicylate; Complete Time: 02:35 [facility] 11/01 00:12 Order name: Urine Drug Screen; Complete Time: 02:35 [facility] 11/01 00:54 Order name: Urine Dipstick--Ancillary (enter results); Complete Time: 02:35 [facility] 11/01 00:12 Order name: XRAY Chest (1 view) [facility] 11/01 00:12 Order name: EKG; Complete Time: 00:13 [facility] 11/01 00:12 Order name: Cardiac monitoring; Complete Time: 00: [facility] 11/01 00:12 Order name: EKG - Nurse/Tech; Complete Time: 00:31 [facility] 11/01 00:12 Order name: IV Saline Lock; Complete Time: 00:23 [facility] 11/01 00:12 Order name: CT Abd/Pelvis - W/Contrast [facility] 11/01 00:54 Order name: Urine Culture [facility] 11/01 02:47 Order name: CONS Physician Consult [facility] 11/01 00:12 Order name: Labs collected and sent; Complete Time: 00:23 [facility] 11/01 00:12 Order name: O2 Per Protocol; Complete Time: 00:23 [facility] 11/01 00:12 Order name: O2 Sat Monitoring; Complete Time: 00:23 [facility] 11/01 00:12 Order name: Urine Dipstick-Ancillary (obtain specimen); Complete Time: 00:52 [facility] Administered Medications: 00:31 Drug: Pepcid 20 mg Route: IVP; Site: right antecubital; lp1 01:30 Follow up: Response: No adverse reaction lp1 00:31 Drug: fentaNYL (PF) 50 mcg Route: IVP; Site: right antecubital; lp1 01:00 Follow up: Response: Pain is decreased lp1 00:31 Drug: Zofran 4 mg Route: IVP; Site: right antecubital; lp1 01:30 Follow up: Response: Nausea is decreased lp1 02:24 Drug: fentaNYL (PF) 50 mcg Route: IVP; Site: right antecubital; lp1 03:20 Follow up: Response: No adverse reaction ak1 03:19 Drug: levofloxacin 500 mg Volume: 100 ml; Route: IVPB; Infused Over: 60 mins; Site: ak1 right antecubital; 04:17 Follow up: IV Status: Completed infusion ak1 03:19 Drug: NS 0.9% 1000 ml Route: IV; Rate: 1 bolus; Site: right antecubital; ak1 04:16 Follow up: IV Status: Completed infusion ak1 03:19 Drug: NS 0.9% 1000 ml Route: IV; Rate: 125 ml/hr; Site: right antecubital; ak1 04:19 Follow up: IV Status: Infusion continued upon admission ak1 03:20 Drug: Flagyl 500 mg Volume: 100 ml; Route: IVPB; Rate: 200 ml/hr; Infused Over: 30 ak1 mins; Site: right antecubital; 04:12 Follow up: IV Status: Completed infusion ak1 Disposition: 18 02:41 Hospitalization ordered by Marimar Gifford for Inpatient Admission. Preliminary diagnosis are Abdominal tenderness, Other chronic pancreatitis - acute/chronic, Cholelithiasis - CBD stent. - Bed requested for Telemetry/MedSurg (Inpatient). - Status is Inpatient Admission. ak1 - Condition is Fair. - Problem is new. - Symptoms have improved. UTI on Admission? No Signatures: Dispatcher [employer] EDMS Radha Campa RN Vickey Olvera MD MD cha Pena, Laura RN RN lp1 Edie Aldana RN RN ak1 Hailee Osman RN RN kr2 Corrections: (The following items were deleted from the chart) 03:48 02:41 Hospitalization Ordered by Marimar Gifford MD for Inpatient Admission. Preliminary diagnosis is Abdominal tenderness; Other chronic pancreatitis - acute/chronic. Bed requested for Telemetry/MedSurg (Inpatient). Status is Inpatient Admission. Condition is Fair. Problem is new. Symptoms have improved. UTI on Admission? No. jasmin 04:10 03:48 11/01/2017 02:41 Hospitalization Ordered by Marimar Gifford MD for Inpatient jasmin Admission. Preliminary diagnosis is Abdominal tenderness; Other chronic pancreatitis - acute/chronic. Bed requested for Telemetry/MedSurg (Inpatient). Status is Inpatient Admission. Condition is Fair. Problem is new. Symptoms have improved. UTI on Admission? No. mw 04:34 04:10 11/01/2017 02:41 Hospitalization Ordered by Marimar Gifford MD for Inpatient ak1 Admission. Preliminary diagnosis is Abdominal tenderness; Other chronic pancreatitis - acute/chronic; Cholelithiasis - CBD stent. Bed requested for Telemetry/MedSurg (Inpatient). Status is Inpatient Admission. Condition is Fair. Problem is new. Symptoms have improved. UTI on Admission? No. jasmin
[2017-11-01] MEDS ORDERED: NA CHLORIDE 0.9% 2,000 ML ONE (03:00)
[2017-11-01] MEDS ORDERED: METRONIDAZOLE 500mg IVPB 500 MG/100 ML BAG IV ONE (03:00)
[2017-11-01] MEDS ORDERED: Levofloxacin500mg IV 500 MG/100 ML BAG IV ONE (03:00)
--- NOTE | 2017-11-01 03:55 | P.HP ---
Certification for Inpatient Patient admitted to: Inpatient With expected LOS: >2 Midnights Practitioner: I am a practitioner with admitting privileges, knowledge of patient current condition, hospital course, and medical plan of care. Services: Services provided to patient in accordance with Admission requirements found in Title 42 Section 412.3 of the Code of Federal Regulations Patient History Date of Service: 11/01/17 Reason for admission: Abdominal pain, pancreatitis History of Present Illness: Ms Bhat is a 47-year-old woman history of methamphetamine abuse, last time using was 3 days ago and she claim that has been quit already, anxiety disorder , cholelithiasis with previous cystic stent placement in April of this year, she supposed to follow up with Dr. Blanc in order to remove the stent but she did not. Today she came to ER complaining of severe abdominal pain, localized in right upper quadrant, intensity is 10/10, associated with nausea vomiting. She also has had fever 101.7 F. The pain started yesterday morning and has been persistent. Lab work remarkable for elevated lipase, WBC within normal limits. CT abdomen and pelvis done, pending report. Allergies Penicillins Allergy (Intermediate, Verified 10/01/16 08:00) SWELLING/RASH morphine Allergy (Unverified 06/17/17 05:56) Unknown tramadol Allergy (Verified 06/13/17 22:26) Itching nicotine [From Nicoderm CQ] Adverse Reaction (Verified 06/13/17 23:12) Itching/Hives/Rash Home medications list reviewed: Yes Home Medications: Ondansetron HCl [Zofran] 4 mg PO TID PRN #20 tablet 10/03/16 Pantoprazole [Protonix Tab*] 40 mg PO DAILY #30 tab 10/03/16 ALPRAZolam [Xanax*] 2 mg PO TID 06/13/17 Citalopram [Celexa*] 40 mg PO DAILY 06/13/17 Dextroamphetamine/Amphetamine [Adderall 10 mg Tablet] 30 mg PO BID 06/13/17 Ciprofloxacin HCl [Cipro 500 MG Tablet] 500 mg PO BID #14 tab 06/16/17 Codeine/APAP [Tylenol W/Codeine #3 tab] 1 tab PO Q6HP PRN 3 Days #12 tab metroNIDAZOLE [Flagyl] 500 mg PO Q8H #21 tablet 06/16/17 - Past Medical/Surgical History Diabetic: No -: Hepatitis-C, treated -: Chronic recurrent pancreatitis -: History DVT, treated 1996 -: Tobacco abuse -: Bipolar disorder -: Chronic pain -: Carpal tunnel syndrome -: Hysterectomy -: Carpal tunnel surgery Psychosocial/ Personal History: The patient is single. She has 1 child. She is currently disabled - Family History Father -: Heart disease, Hypertension, Diabetes - Social History Smoking Status: Former smoker Alcohol use: No CD- Drugs: Yes Caffeine use: Yes Place of Residence: Home Review of Systems 10-point ROS is otherwise unremarkable Physical Examination - Physical Exam General: Alert, In no apparent distress HEENT: Atraumatic, PERRLA, Mucous membr. moist/pink, EOMI, Sclerae nonicteric Neck: Supple, 2+ carotid pulse no bruit, No LAD, Without JVD or thyroid abnormality Respiratory: Clear to auscultation bilaterally, Normal air movement Cardiovascular: Regular rate/rhythm, Normal S1 S2 Gastrointestinal: Normal bowel sounds, Tenderness (Right upper quadrant) Musculoskeletal: No tenderness Integumentary: No rashes Neurological: Normal speech, Normal strength at 5/5 x4 extr, Normal tone, Normal affect Lymphatics: No axilla or inguinal lymphadenopathy - Studies Laboratory Data (last 24 hrs) 11/01/17 00:15: PT 11.3, INR 0.96, APTT 31.9 11/01/17 00:15: WBC 9.1, Hgb 15.0, Hct 43.8, Plt Count 273 11/01/17 00:15: Sodium 137, Potassium 3.5, BUN 9, Creatinine 0.90, Glucose 104, Magnesium 2.4, Total Bilirubin 0.7, AST 37, ALT 52, Alkaline Phosphatase 71, Lipase 464 H Assessment and Plan - Plan Assessment 1. Abdominal pain 2. Pancreatitis 3. Methamphetamine abuse 4. Anxiety disorder 5. Cholelithiasis with previous cystic stent placement 6. UTI Plan Will admit the patient to the hospital due to right upper quadrant abdominal pain, possible gallstone pancreatitis, and UTI. Will keep the patient NPO, start IV fluid, empiric Levaquin IV for UTI. Consult GI specialist. CT abdomen and pelvis awaiting report. - Advance Directives Does patient have a Living Will: No Does patient have a Durable POA for Healthcare: No - Code Status/Comfort Care Code Status Assessed: Yes Code Status: Full Code
[2017-11-01] MEDS ORDERED: ONDANSETRON 4 MG/2 ML VIAL IV PRN (04:00)
[2017-11-01] MEDS ORDERED: ACETAMINOPHEN 500 MG TAB PO PRN (04:00)
[2017-11-01] MEDS: NA CHLORIDE 0.9% 1,000 ML IV SCH ×2 (04:49→14:00)
[2017-11-01 04:57] VITALS: O2SAT 98
[2017-11-01 05:24] VITALS: BMI 23.5
--- NOTE | 2017-11-01 07:10 | RAD REPORT ---
EXAM DESCRIPTION: CT - Abdomen Pelvis W Contrast - 11/01/2017 6:43 am CLINICAL HISTORY: Diffuse abdominal pain, nausea, vomiting, history of prior liver and pancreatic tr aumatic injury decades earlier, history of chronic pancreatitis and hepatitis C A preliminary report was provided at the time of the study and reviewed prior to final report. COMPARISON: CT June 2017 TECHNIQUE: Biphasic, helical CT imaging of the abdomen and pelvis was performed following 100 ml non -ionic IV contrast. No oral contrast administered. All CT scans are performed using dose optimization technique as appropriate and may include automated exposure control or mA/KV adjustment according to patient size. FINDINGS: No suspicious findings in the lung bases. Liver shows a moderate fatty infiltration pattern with no focal liver lesions identified. No splenic abnormality. No solid or cystic mass of the pancreatic parenchyma. No intrahepatic biliary tree dilat ation. Extrahepatic biliary tree is moderately prominent in size but not grossly dilated. Biliary susan nt is in place. An estimated 40% of the stent is within the biliary tree and 60% of the stent in the duodenum. At least 1 punctate gallstone is identified. Additional stones and sludge could be present an occult. Gallbladder is distended with mild wall thickening and edema. No measurable pericholecysti c fluid. Symmetric renal function is seen with no hydronephrosis or suspicious renal mass. No pyelonephritis o r acute renal parenchymal process. Small lateral upper pole left renal cyst unchanged from the compar juvenal. No adrenal abnormality. Partially filled urinary bladder shows no suspicious findings. Uterus is absent. Right ovary is unremarkable. Left ovary contains a 3.5 centimeter homogeneous fluid attenuation cyst. No ovarian cyst rupture or hemorrhage suspected. No dilated bowel loops or bowel wall thickening. Appendix is normal positioned in the right floor the pelvis. Cecum is low lying. No free air, free fluid or inflammatory stranding. No hernia, mass or b ulky lymphadenopathy. No adrenal abnormality. No suspicious bony findings. IMPRESSION: Distended gallbladder with slight wall thickening and edema. At least 1 stone is present . Additional stones or sludge could be present an occult on CT imaging. No biliary tree dilatation. Biliary stent is in place. Approximately 40% of the stent is within the d istal common bile duct. Diffuse fatty infiltration of the liver. A 3.5 centimeter left ovarian cyst is present enlarged from June. This needs monitoring to assure reso lution. No calcification, septation or solid mass component identifiable.
[2017-11-01] MEDS ORDERED: KCL 20 MEQ/100 mL IVPB 20 MEQ/100 ML BAG IV SCH (08:00)
--- NOTE | 2017-11-01 11:48 | EKG ---
Test Date: 2017-11-01 Test Time: 00:27:06 Bond Underwriter: BRYAN MEASUREMENT RESULTS: Intervals: Rate: 78 OK: 112 QRSD: 76 QT: 368 QTc: 419 Swiss: P: 61 OK: 112 QRS: 64 T: 33 INTERPRETIVE STATEMENTS: Normal sinus rhythm Normal ECG Compared to ECG 06/13/2017 17:00:24 No significant changes Electronically Signed On 11-01-17 11:46:29 CDT by Manjinder Conti
--- NOTE | 2017-11-01 14:09 | RAD REPORT ---
EXAM DESCRIPTION: RAD - Chest Single View - 11/01/2017 12:42 am CLINICAL HISTORY: Abdominal pain, abdominal distention Due to hospital wide technical malfunction, overnight and morning reports were delayed COMPARISON: June 13, 2017 TECHNIQUE: AP portable chest image was obtained 0029 hours . FINDINGS: Lungs are clear. Heart and vasculature are normal. No measurable pleural effusion and no p neumothorax. No gross bony abnormality seen. No acute aortic findings suspected. IMPRESSION: No acute cardiopulmonary process. No significant interval change.
[2017-11-01] MEDS: KETOROLAC 30 MG/ML INJ IV PRN ×2 (15:12→21:12)
[2017-11-01 17:48] VITALS: TEMP 97.3
[2017-11-01 21:40] VITALS: BP 109/72
[2017-11-02] MEDS ORDERED: Levofloxacin500mg IV 500 MG/100 ML BAG IV SCH (04:00)
== END 2017-11-01 22:15 | disposition short-term general hospital (02) | DRG 444 ==
LOC: ER 00:02 → ERHOLD 02:42 → 2ND 03:54
PROVIDERS: ADMIT Internal Medicine; ATTEND Family Medicine
DX: K80.50 Calculus of bile duct without cholangitis or cholecystitis without obstruction (principal); K85.90 Acute pancreatitis without necrosis or infection, unspecified; N39.0 Urinary tract infection, site not specified; F15.10 Other stimulant abuse, uncomplicated; F41.9 Anxiety disorder, unspecified; Z88.0 Allergy status to penicillin; Z86.718 Personal history of other venous thrombosis and embolism; F31.9 Bipolar disorder, unspecified
CPT/HCPCS: 36415; 71045; 74177; 80048; 80076; 80307; 80320; 80329; 81003; 83690; 83735; 83880; 84484; 85025; 85610; 85730; 87077; 87086; 87088; 87186; 93005; 96365; 96375; 99285; J2405; J3010; J7030; Q9967

== ENCOUNTER 2021-10-14 20:07 | Emergency (ER) | payer OTHER, SELFPAY ==
--- OUTSIDE RECORDS SUMMARY | 2021-10-14 20:09 | XMS REPORT | Continuity of Care Document ---
:1970 Author Organization [facility] t Address [address] [place] [address] Care Team Providers Name Role Phone No, Pcp [facility] [place] Primary Care Physician Unavailable NERET Attending Clinician Unavailable WILLY FARNSWORTH Attending Clinician Unavailable NERET Admitting Clinician Unavailable WILLY FARNSWORTH Admitting Clinician Unavailable Payers Payer Name Policy Type Policy Number Effective Date Expiration Date S mary [place]: [id number] 2015 [email or web address] 00:00:00 [place] [id number] [place] Problems Condition Condition Condition Status Onset Resolution Last Treating Co mments Source Name Details Category Date Date Treatment Clinician Date 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 00:[facility]: Medical 00 [place] Anxiety Anxiety Disease [facility] [place] Disease Active [facility] lithiasis lithiasis 9-20 [facility] Acute Acute Disease Active [facility] biliary biliary 9-20 [facility] pancreatit pancreatit 00:00: Me dical is without is without 00 Ce nter infection infection or or necrosis necrosis Acute Acute Disease Active [facility] cystitis cystitis 9-20 [facility] without without 00:00: Medical hematuria hematuria 00 Cent er Allergies, Adverse Reactions, Alerts Allergy Allergy Status Severity Reaction(s) Onset Inactive Treating Comm ents Source Name Type Date Date Clinician Morphine Propensi Active Hives[facility] to Itching 9-19 [facility] adverse 00:00: Medical reaction 00 Center s Nicotine Propensi Active Itching, [facility] ty to Rash 11-01 [facility] adverse 00:00: Medical reaction 00 Center s Penicill Propensi Active Hives, [facility] ins ty to Itching, 11-01 [facility] adverse Rash 00:00: Medical reaction 00 Center s Tramadol Propensi Active Hives, [facility] ty to Itching, 11-01 [facility] adverse Rash 00:00: Medical reaction 00 Center s Family History Family Member Diagnosis Comments Start Date Stop Date Source Natural mother No Known Problem [facility] Social History Social Habit Start Date Stop Date Quantity Comments Source History of tobacco Cigarette Smoker [facility] use [facility] Alcohol intake 2017-11-06 2017-11-06 [facility] non-drinker of Medical Ce nter alcohol (finding) Tobacco use and 2017-11-02 2017-11-02 Never used [facility] exposure 00:00:00 00:00:00 [facility] Cigarettes smoked 2017-11-02 2017-11-[address] [facility] current (pack per 00:00:00 00:00:00 [facility] Center day) - Reported Cigarette 2017-11-02 2017-11-02 [facility] pack-years 00:00:00 00:00:00 [facility] Sex Ass[birth year] At [birth year] [facility] 00:00:00 00:00:00 [facility] Smoking Status Start Date Stop Date Source Current every day smoker 2017-11-02 00:00:00 [facility] Medications Ordered Filled Start Stop Current Ordering Indication Dosage Frequency Signature Comments Components Source Medication Medication Date Date Medication? Clinician (SIG) Name Name ALPRAZolam Yes anxiety 2mg [id number] Take [address] [facility] (XANAX) 2 11-04 [id number] by mouth 3 [facility] MG tablet 20:00: 3D (three) Medic al 17 times Center daily. citalopram Yes depression 40mg QD Take [address] [facility] (CELEXA) 40 11-04 associated by mouth [facility] tablet 20:00: with daily. Medica l 17 bipolar Center disorder aspirin 81 Yes 81mg QD Take [address] MG chewable 11-04 by mouth [facility] tablet 20:00: daily. Medical 17 Center omeprazole 2018-0 Yes 40mg QD Take [address] (PRILOSEC) 9-22 by mouth [facility] 40 MG 20:00: daily. Medical capsule 17 Center dextroamphe 2018-0 Yes 30mg Q.5D Take [address] [facility] tamine-amph -22 by mouth 2 Ebony kes etamine 30 20:00: (two) Medica l mg Tab 17 times Center daily. Procedures This patient has no known procedures. Encounters Start End Encounter Admission Attending Care Care Encounter Source Date/Time Date/Time Type Type Clinicians Facility Department ID 2020-01-01 2020-01-01 [id number] [place] 02:21:00 02:21:00 [id number] 2020-01-01 2020-01-01 [place] [id number] [place] 02:21:00 02:21:00 [facility] Results Test Description Test Time Test Comments Results Result Comments Source TISSUE EXAM 2017-11-07 Surgical Pathology 15:02:00 Report Case: [id number] Authorizing Provider: Sergio Oliveira MD Collected: 11/03/2017 1909 Ordering Location: [facility] Received: 11/05/2017 1229 SERVICES Pathologist: Lauryn Tejeda MD Specimen: Gallbladder, gall bladder GALLBLADDER, CHOLECYSTECTOMY: - ACUTE AND CHRONIC CHOLECYSTITIS - CHOLELITHIASIS - ONE BENIGN REACTIVE LYMPH NODE (0/1) Signing Pathologist Direct Phone Line: [phone] dionne signed by Lauryn Tejeda MD on 11/07/2017 at 3:02 [id number] bladder Received fresh labeled "gallbladder" is an 8.0 x 3.5 x 2.5 cm intact, distended gallbladder. The serosal surface is puprle-evans and exhibits cautery artifact on the hepatic surface. The lumen contains yellow-green to red mucoid bile and a 0.5 cm in greatest dimension yellow-evans irregular calculus. The mucosal surface is yellow-green to red, velvety and glistening. The wall measures up to 0.2 cm in maximum thickness. Section code: A1, parallel cystic duct resection margin and one bisected cystic duct lymph node; A2, off premise service representative section of gallbladder. DB/pl Performed. HEPATIC FUNCTION PANEL 2017-11-04 07:03:00 Test Item Value Reference Range Interpretation Comme nts TOTAL PROTEIN (BEAKER) (test code = 770) 6.4 gm/dL 6.0-8.3 ALBUMIN (BEAKER) (test code = 1145) 3.3 g/dL 3.5-5.0 L BILIRUBIN TOTAL (BEAKER) (test code = 377) 0.4 mg/dL 0.2-1.2 BILIRUBIN DIRECT (BEAKER) (test code = 706) 0.2 mg/dL 0.1-0.5 ALKALINE PHOSPHATASE (BEAKER) (test code = 346) 57 U/L 40-150 AST (SGOT) (BEAKER) (test code = 353) 80 U/L 5-34 H ALT (SGPT) (BEAKER) (test code = 347) 65 U/L 6-55 H BASIC METABOLIC [id number] 07:03:00 Test Item Value Reference Range Interpretation Comments SODIUM (BEAKER) 135 meq/L 136-145 L (test code = 381) POTASSIUM (BEAKER) 4.4 meq/L 3.5-5.1 (test code = 379) CHLORIDE (BEAKER) 107 meq/L 98-107 (test code = 382) CO2 (BEAKER) (test 22 meq/L 22-29 code = 355) BLOOD UREA NITROGEN 8 mg/dL 7-21 (BEAKER) (test code = 354) CREATININE (BEAKER) 0.70 mg/dL 0.57-1.25 (test code = 358) GLUCOSE RANDOM 121 mg/dL 70-105 H (BEAKER) (test code = 652) CALCIUM (BEAKER) 8.6 mg/dL 8.4-10.2 (test code = 697) EGFR (BEAKER) (test 90 mL/min/1.73 ESTIMA NUSRAT GFR IS code = 1092) sq m NOT ACCURATE CREATININE CLEARANCE IN PREDICTING GLOMERULAR FILTRATION RATE . ESTIMATED GFR I S NOT APPLICABLE FOR DIALYSIS PATIEN TS. CBC W/PLT COUNT & AUTO [id number] 04:20:00 Test Item Value Reference Range Interpretation Comments WHITE BLOOD CELL COUNT (BEAKER) 11.8 K/ L 3.5-10.5 H (test code = 775) RED BLOOD CELL COUNT (BEAKER) 4.51 M/ L 3.93-5.22 (test code = 761) HEMOGLOBIN (BEAKER) (test code = 13.5 GM/DL 11.2-15.7 410) HEMATOCRIT (BEAKER) (test code = 41.0 % 34.1-44.9 411) MEAN CORPUSCULAR VOLUME (BEAKER) 90.9 fL 79.4-94.8 (test code = 753) MEAN CORPUSCULAR HEMOGLOBIN 29.9 pg 25.6-32.2 (BEAKER) (test code = 751) MEAN CORPUSCULAR HEMOGLOBIN CONC 32.9 GM/DL 32.2-35.5 (BEAKER) (test code = 752) RED CELL DISTRIBUTION WIDTH 12.5 % 11.7-14.4 (BEAKER) (test code = 412) PLATELET COUNT (BEAKER) (test 250 K/CU MM 150-450 code = 756) MEAN PLATELET VOLUME (BEAKER) 10.3 fL 9.4-12.3 (test code = 754) NUCLEATED RED BLOOD CELLS 0 /100 WBC 0-0 (BEAKER) (test code = 413) NEUTROPHILS RELATIVE PERCENT 91 % (BEAKER) (test code = 429) LYMPHOCYTES RELATIVE PERCENT 6 % (BEAKER) (test code = 430) MONOCYTES RELATIVE PERCENT 3 % (BEAKER) (test code = 431) EOSINOPHILS RELATIVE PERCENT 0 % (BEAKER) (test code = 432) BASOPHILS RELATIVE PERCENT 0 % (BEAKER) (test code = 437) NEUTROPHILS ABSOLUTE COUNT 10.78 K/ L 1.56-6.13 H (BEAKER) (test code = 670) LYMPHOCYTES ABSOLUTE COUNT 0.65 K/ L 1.18-3.74 L (BEAKER) (test code = 414) MONOCYTES ABSOLUTE COUNT (BEAKER) 0.32 K/ L 0.24-0.36 (test code = 415) EOSINOPHILS ABSOLUTE COUNT 0.01 K/ L 0.04-0.36 L (BEAKER) (test code = 416) BASOPHILS ABSOLUTE COUNT (BEAKER) 0.03 K/ L 0.01-0.08 (test code = 417) IMMATURE GRANULOCYTES-RELATIVE 0 % 0-1 PERCENT (BEAKER) (test code = 2801) FL, [id number] 07:54:00Reason for exam:->ERCP for biliary stent removal FLUOROSCOPIC UNIT UTILIZED-NO INTERPRETATION REQUESTED. [facility] 2017-11-03 06:33:00 Test Item Value Reference Range Interpretation Comments TOTAL PROTEIN (BEAKER) (test code = 6.0 gm/dL 6.0-8.3 770) ALBUMIN (BEAKER) (test code = 1145) 3.2 g/dL 3.5-5.0 L BILIRUBIN TOTAL (BEAKER) (test code 0.7 mg/dL 0.2-1.2 = 377) BILIRUBIN DIRECT (BEAKER) (test 0.3 mg/dL 0.1-0.5 code = 706) ALKALINE PHOSPHATASE (BEAKER) (test 56 U/L 40-150 code = 346) AST (SGOT) (BEAKER) (test code = 35 U/L 5-34 H 353) ALT (SGPT) (BEAKER) (test code = 38 U/L 6-55 347) BASIC METABOLIC [id number] 06:33:00 Test Item Value Reference Range Interpretation Comments SODIUM (BEAKER) 136 meq/L 136-145 (test code = 381) POTASSIUM (BEAKER) 4.2 meq/L 3.5-5.1 (test code = 379) CHLORIDE (BEAKER) 106 meq/L 98-107 (test code = 382) CO2 (BEAKER) (test 23 meq/L 22-29 code = 355) BLOOD UREA NITROGEN 10 mg/dL 7-21 (BEAKER) (test code = 354) CREATININE (BEAKER) 0.64 mg/dL 0.57-1.25 (test code = 358) GLUCOSE RANDOM 58 mg/dL 70-105 L (BEAKER) (test code = 652) CALCIUM (BEAKER) 8.4 mg/dL 8.4-10.2 (test code = 697) EGFR (BEAKER) (test 100 mL/min/1.73 ESTIM ATED GFR IS code = 1092) sq m NOT ACCURATE CREATININE CLEARANCE IN PREDICTING GLOMERULAR FILTRATION RATE . ESTIMATED GFR I S NOT APPLICABLE FOR DIALYSIS PATIEN TS. CBC W/PLT COUNT & AUTO [id number] 05:29:00 Test Item Value Reference Range Interpretation Comments WHITE BLOOD CELL COUNT (BEAKER) 8.3 K/ L 3.5-10.5 (test code = 775) RED BLOOD CELL COUNT (BEAKER) 4.46 M/ L 3.93-5.22 (test code = 761) HEMOGLOBIN (BEAKER) (test code = 13.2 GM/DL 11.2-15.7 410) HEMATOCRIT (BEAKER) (test code = 40.1 % 34.1-44.9 411) MEAN CORPUSCULAR VOLUME (BEAKER) 89.9 fL 79.4-94.8 (test code = 753) MEAN CORPUSCULAR HEMOGLOBIN 29.6 pg 25.6-32.2 (BEAKER) (test code = 751) MEAN CORPUSCULAR HEMOGLOBIN CONC 32.9 GM/DL 32.2-35.5 (BEAKER) (test code = 752) RED CELL DISTRIBUTION WIDTH 12.3 % 11.7-14.4 (BEAKER) (test code = 412) PLATELET COUNT (BEAKER) (test 229 K/CU MM 150-450 code = 756) MEAN PLATELET VOLUME (BEAKER) 10.8 fL 9.4-12.3 (test code = 754) NUCLEATED RED BLOOD CELLS 0 /100 WBC 0-0 (BEAKER) (test code = 413) NEUTROPHILS RELATIVE PERCENT 68 % (BEAKER) (test code = 429) LYMPHOCYTES RELATIVE PERCENT 24 % (BEAKER) (test code = 430) MONOCYTES RELATIVE PERCENT 5 % (BEAKER) (test code = 431) EOSINOPHILS RELATIVE PERCENT 2 % (BEAKER) (test code = 432) BASOPHILS RELATIVE PERCENT 1 % (BEAKER) (test code = 437) NEUTROPHILS ABSOLUTE COUNT 5.64 K/ L 1.56-6.13 (BEAKER) (test code = 670) LYMPHOCYTES ABSOLUTE COUNT 2.00 K/ L 1.18-3.74 (BEAKER) (test code = 414) MONOCYTES ABSOLUTE COUNT (BEAKER) 0.45 K/ L 0.24-0.36 H (test code = 415) EOSINOPHILS ABSOLUTE COUNT 0.17 K/ L 0.04-0.36 (BEAKER) (test code = 416) BASOPHILS ABSOLUTE COUNT (BEAKER) 0.06 K/ L 0.01-0.08 (test code = 417) IMMATURE GRANULOCYTES-RELATIVE 0 % 0-1 PERCENT (BEAKER) (test code = 2801) [id number] 07:20:00 Test Item Value Reference Range Interpretation Comments LIPASE (BEAKER) (test code = 749) 67 U/L 8-78 BASIC METABOLIC [id number] 07:20:00 Test Item Value Reference Range Interpretation Comments SODIUM (BEAKER) 136 meq/L 136-145 (test code = 381) POTASSIUM (BEAKER) 3.7 meq/L 3.5-5.1 (test code = 379) CHLORIDE (BEAKER) 107 meq/L 98-107 (test code = 382) CO2 (BEAKER) (test 23 meq/L 22-29 code = 355) BLOOD UREA NITROGEN 8 mg/dL 7-21 (BEAKER) (test code = 354) CREATININE (BEAKER) 0.70 mg/dL 0.57-1.25 (test code = 358) GLUCOSE RANDOM 64 mg/dL 70-105 L (BEAKER) (test code = 652) CALCIUM (BEAKER) 8.4 mg/dL 8.4-10.2 (test code = 697) EGFR (BEAKER) (test 90 mL/min/1.73 ESTIMA NUSRAT GFR IS code = 1092) sq m NOT ACCURATE CREATININE CLEARANCE IN PREDICTING GLOMERULAR FILTRATION RATE . ESTIMATED GFR I S NOT APPLICABLE FOR DIALYSIS PATIEN TS. HEPATIC FUNCTION [id number] 07:20:00 Test Item Value Reference Range Interpretation Comments TOTAL PROTEIN (BEAKER) (test code = 6.2 gm/dL 6.0-8.3 770) ALBUMIN (BEAKER) (test code = 1145) 3.2 g/dL 3.5-5.0 L BILIRUBIN TOTAL (BEAKER) (test code 0.8 mg/dL 0.2-1.2 = 377) BILIRUBIN DIRECT (BEAKER) (test 0.3 mg/dL 0.1-0.5 code = 706) ALKALINE PHOSPHATASE (BEAKER) (test 54 U/L 40-150 code = 346) AST (SGOT) (BEAKER) (test code = 27 U/L 5-34 353) ALT (SGPT) (BEAKER) (test code = 32 U/L 6-55 347) PROTHROMBIN [id number] 06:57:00 Test Item Value Reference Range Interpretation Comments PROTIME (BEAKER) (test code = 14.6 seconds 11.7-14.7 759) INR (BEAKER) (test code = 370) 1.1 <=5.9 RECOMMENDED COUMADIN/WARFARIN INR THERAPY RANGESSTANDARD DOSE: 2.0 - 3.0 Includes: PROPHYLAXIS for venous thrombosis, systemic embolization; TREATMENT for venous thrombosis and/or pulmonary embolus.HIGH RISK: Target INR is 2.5-3.5 for patients with mechanical heart valves.CBC W/PLT COUNT & AUTO [id number] 06:49:00 Test Item Value Reference Range Interpretation Comments WHITE BLOOD CELL COUNT (BEAKER) 6.5 K/ L 3.5-10.5 (test code = 775) RED BLOOD CELL COUNT (BEAKER) 4.38 M/ L 3.93-5.22 (test code = 761) HEMOGLOBIN (BEAKER) (test code = 13.2 GM/DL 11.2-15.7 410) HEMATOCRIT (BEAKER) (test code = 39.9 % 34.1-44.9 411) MEAN CORPUSCULAR VOLUME (BEAKER) 91.1 fL 79.4-94.8 (test code = 753) MEAN CORPUSCULAR HEMOGLOBIN 30.1 pg 25.6-32.2 (BEAKER) (test code = 751) MEAN CORPUSCULAR HEMOGLOBIN CONC 33.1 GM/DL 32.2-35.5 (BEAKER) (test code = 752) RED CELL DISTRIBUTION WIDTH 12.9 % 11.7-14.4 (BEAKER) (test code = 412) PLATELET COUNT (BEAKER) (test 217 K/CU MM 150-450 code = 756) MEAN PLATELET VOLUME (BEAKER) 10.3 fL 9.4-12.3 (test code = 754) NUCLEATED RED BLOOD CELLS 0 /100 WBC 0-0 (BEAKER) (test code = 413) NEUTROPHILS RELATIVE PERCENT 58 % (BEAKER) (test code = 429) LYMPHOCYTES RELATIVE PERCENT 32 % (BEAKER) (test code = 430) MONOCYTES RELATIVE PERCENT 5 % (BEAKER) (test code = 431) EOSINOPHILS RELATIVE PERCENT 3 % (BEAKER) (test code = 432) BASOPHILS RELATIVE PERCENT 1 % (BEAKER) (test code = 437) NEUTROPHILS ABSOLUTE COUNT 3.76 K/ L 1.56-6.13 (BEAKER) (test code = 670) LYMPHOCYTES ABSOLUTE COUNT 2.05 K/ L 1.18-3.74 (BEAKER) (test code = 414) MONOCYTES ABSOLUTE COUNT (BEAKER) 0.35 K/ L 0.24-0.36 (test code = 415) EOSINOPHILS ABSOLUTE COUNT 0.21 K/ L 0.04-0.36 (BEAKER) (test code = 416) BASOPHILS ABSOLUTE COUNT (BEAKER) 0.06 K/ L 0.01-0.08 (test code = 417) IMMATURE GRANULOCYTES-RELATIVE 0 % 0-1 PERCENT (BEAKER) (test code = 2809)
--- NOTE | 2021-10-14 21:35 | RAD REPORT ---
EXAM DESCRIPTION: RAD - Chest Single View - 10/14/2021 9:28 pm CLINICAL HISTORY: SOB Chest pain. COMPARISON: <Comparisons> FINDINGS: Portable technique limits examination quality. Interstitial markings are mildly prominent which can be seen in a viral infection. The heart is jayla l in size. No displaced fractures.
[2021-10-14] MEDS ORDERED: FENTANYL CITR 100 MCG/2 ML ONE (22:25)
[2021-10-14] MEDS ORDERED: NA CHLORIDE 0.9% 1,000 ML ONE (22:25)
[2021-10-14] MEDS ORDERED: KETOROLAC 30 MG/ML INJ ONE (22:25)
[2021-10-14 22:56] LABS: Urine Blood Trace-intact (Negative); Urine Glucose Negative (Negative); Urine Protein Negative (Negative); Urine pH 8.5 (5.0-7.0)
[2021-10-14 23:04] LABS: Absolute Lymphocytes (CBC) 1.5 K/uL (0.7-4.9); Hematocrit 42.6 % (36.0-45.0); Lymphocytes % 13.9 % (15.3-44.8); MCV 87.8 fL (80-100); MPV 8.5 fL (7.6-11.3); RBC Red Blood Cell Count 4.85 M/uL (3.86-4.86)
[2021-10-14 23:05] LABS: Protime INR 1.13
[2021-10-14 23:26] LABS: Albumin 3.1 g/dL (3.4-5.0); Bilirubin Direct 0.2 mg/dL (0-0.2); Bilirubin Total 0.6 mg/dL (0.2-1.0); Magnesium 2.2 mg/dL (1.8-2.4); Potassium 3.1 mmol/L (3.5-5.1); Troponin High Sensitivity 3.1 pg/mL (<58.9)
[2021-10-14 23:26] LABS: Urine Bacteria 20-50 /HPF (<20)
[2021-10-14] MEDS ORDERED: AZITHROMYCIN 500 MG INJ IVPB ONE (23:56)
[2021-10-14] MEDS ORDERED: CEFTRIAXONE 1000 MG/VIAL ONE (23:56)
[2021-10-14] MEDS ORDERED: NA CHLORIDE 0.9% 250 ML ONE (23:56)
[2021-10-14] MEDS ORDERED: NA CHLORIDE 0.9% 50 ML ONE (23:57)
[2021-10-15] MEDS ORDERED: NA CHLORIDE 0.9% 1,000 ML ONE (00:38)
--- NOTE | 2021-10-15 02:44 | EDPHYS ---
Physician Documentation [facility] Name: Nany Bhat Age: 51 yrs Sex: Female : 1970 Arrival Date: 10/14/2021 Time: 20:09 Bed 26 Private MD: ED Physician Vickey Kelly HPI: 10/14 21:15 This 51 yrs old Female presents to ER via Ambulatory with complaints of Covid. cp Historical: - Allergies: 20:21 Morphine; hb 20:21 PENICILLINS; hb 20:21 tramadol; hb - PMHx: 20:21 ADD/ADHD; Chronic Pancreatitis; Depression; HEP C; left leg DVT; liver and pancrease hb laceration when she was 10; - Immunization history:: Adult Immunizations up to date. - Social history:: Smoking status: Patient reports the use of cigarette tobacco products, denies chronic smoking, but will smoke occasionally. ROS: 21:20 Constitutional: Positive for body aches, chills, fever, Negative for poor PO intake. cp 21:20 Eyes: Negative for injury, pain, redness, and discharge. cp 21:20 Neck: Negative for pain with movement, pain at rest, stiffness. 21:20 Cardiovascular: Negative for chest pain, edema. 21:20 Respiratory: Positive for cough, "sounds productive", shortness of breath. 21:20 Abdomen/GI: Positive for abdominal pain, Negative for vomiting, diarrhea, constipation. 21:20 Back: Positive for pain at rest, pain with movement, of the mid back area. 21:20 : Positive for foul smelling urine, Negative for vaginal bleeding, vaginal discharge. 21:20 Neuro: Positive for headache, weakness, Negative for altered mental status. 21:20 All other systems are negative. Exam: 21:25 Constitutional: The patient appears in no acute distress, alert, awake, cp non-diaphoretic, non-toxic, well developed, well nourished, obviously ill, uncomfortable. 21:25 Head/Face: Normocephalic, atraumatic. cp 21:25 Eyes: Periorbital structures: appear normal, Pupils: equal, round, and reactive to light and accomodation, Extraocular movements: intact throughout, Conjunctiva: normal, no exudate, no injection, Sclera: no appreciated abnormality, Lids and lashes: appear normal, bilaterally. 21:25 ENT: External ear(s): are unremarkable, Ear canal(s): are normal, clear, TM's: dullness, bilaterally, Nose: is normal, Mouth: Lips: dry, Oral mucosa: moist, Posterior pharynx: Airway: no evidence of obstruction, patent, Tonsils: no enlargement, no exudate, swelling, is not appreciated, erythema, that is moderate, exudate, is not appreciated. 21:25 Neck: ROM/movement: is normal, is supple, no range of motions limitations, no meningismus, no nuchal rigidity, pain, that is mild, with any movement, Lymph nodes: no appreciated lymphadenopathy. 21:25 Chest/axilla: Inspection: normal. 21:25 Cardiovascular: Rate: tachycardic, Rhythm: regular, Edema: is not appreciated, JVD: is not appreciated. 21:25 Respiratory: the patient does not display signs of respiratory distress, Respirations: labored breathing, is not present, intercostal retractions, are absent, Breath sounds: bronchial sounds, that are mild, are heard diffusely, stridor, is not appreciated, + upper airway congestion. 21:25 Abdomen/GI: Inspection: abdomen appears normal, Bowel sounds: active, all quadrants, Palpation: soft, in all quadrants, mild abdominal tenderness, in the right lower quadrant and left lower quadrant. 21:25 Back: pain, that is moderate, of the mid back area, ROM is painful, with all movement, Straight leg raises: of both lower extremities does not illicit pain. 21:25 Skin: no rash present. 21:25 Neuro: Orientation: to person, place \\T\\ time. Mentation: is normal, Motor: moves all fours, strength is normal, Sensation: is normal. 22:30 ECG was reviewed by the Attending Physician. cp Vital Signs: 20:20 BP 137 / 75; Pulse 129; Resp 24; Temp 103.2(O); Pulse Ox 99% ; Weight 81.65 kg; Height hb 5 ft. 2 in. (157.48 cm); Pain 8/10; 21:09 BP 104 / 64; Pulse 110; Resp 29 S; Pulse Ox 97% on R/A; as6 23:52 BP 115 / 73; Pulse 98; Resp 24 S; Pulse Ox 96% on R/A; as6 09/02 00:00 Temp 99.1; cg 01:08 BP 96 / 59; Pulse 95; Resp 16 S; Pulse Ox 97% on R/A; as6 02:22 BP 109 / 71; Pulse 84; Resp 17 S; Pulse Ox 97% on R/A; as6 10/14 20:20 Body Mass Index 32.92 (81.65 kg, 157.48 cm) hb MDM: 10/14 20:56 Patient medically screened. cp 22:00 Differential diagnosis: Basilar Pneumonia Cholelithiasis Pyelonephritis cp Ureterolithiasis sepsis, pulmonary embolism. 10/15 02:44 Data reviewed: vital signs, nurses notes, lab test result(s), EKG, radiologic studies, cp CT scan, plain films. 02:44 Test interpretation: by ED physician or midlevel provider: ECG, plain radiologic cp studies. Counseling: I had a detailed discussion with the patient and/or guardian regarding: the historical points, exam findings, and any diagnostic results supporting the discharge/admit diagnosis, lab results, radiology results, to return to the emergency department if symptoms worsen or persist or if there are any questions or concerns that arise at home. 02:44 Response to treatment: the patient's symptoms have markedly improved after treatment, cp VSS. Fever resolved, patient reports symptoms markedly improved. Will discharge to home for continued monitoring. 10/14 21:11 Order name: Basic Metabolic Panel; Complete Time: 23:33 cp 10/14 23:34 Interpretation: Normal except: NA 133; K 3.1; GLUC 114; GFR 79; CA 8.4. cp 10/14 21:11 Order name: CBC with Diff; Complete Time: 23:33 cp 10/14 23:34 Interpretation: Normal except: ABUNDIO% 79.1; LYM% 13.9; NEUT A 8.5. cp 10/14 21:11 Order name: LFT's; Complete Time: 23:33 cp 10/15 02:38 Interpretation: Normal except: AST 42; ALB 3.1; GLOB 4.9; A/G 0.6. cp 10/14 21:11 Order name: Magnesium; Complete Time: 23:33 cp 10/14 21:11 Order name: NT PRO-BNP; Complete Time: 23:33 cp 10/14 21:11 Order name: PT-INR; Complete Time: 23:33 cp 10/14 21:11 Order name: Troponin HS; Complete Time: 23:33 cp 10/14 21:23 Order name: Lactate; Complete Time: 23:33 cp 10/14 21:23 Order name: Procalcitonin; Complete Time: 23:59 cp 10/15 00:00 Interpretation: Procalcitonin 0.27; Reviewed. 10/14 21:23 Order name: Blood Culture Adult (2) 10/14 21:23 Order name: Influenza Screen (a \\T\\ B); Complete Time: 23:33 cp 10/14 21:23 Order name: Strep; Complete Time: 23:33 cp 10/14 21:23 Order name: COVID-19 SARS RT PCR (Document "Date of Onset" if Symptomatic); Complete cp Time: 23:59 10/14 21:24 Order name: Urine Microscopic Only; Complete Time: 23:33 10/14 23:34 Interpretation: Normal except: UWBC 10-20; URBC 5-10; UBACT 20-50. 10/14 21:11 Order name: XRAY Chest (1 view); Complete Time: 22:33 10/14 22:33 Interpretation: Report review. 10/14 22:57 Order name: Urine Dipstick-Ancillary; Complete Time: 23:03 [facility] 10/14 23:03 Interpretation: Normal except: UBLD Trace-intact; UPH 8.5; UESTR Trace. 10/14 23:05 Order name: Urine --Ancillary (enter results); Complete Time: 23:33 10/14 23:37 Order name: Urine Culture [facility] 10/14 23:37 Order name: Throat Culture [facility] 10/15 00:02 Order name: US Extremity Venous W Compression Richard 10/15 00:02 Order name: CT Chest For PE Angio 10/15 00:02 Order name: CT Abd/Pelvis - IV Contrast Only 10/14 21:11 Order name: EKG; Complete Time: 21:12 10/14 21:11 Order name: Cardiac monitoring; Complete Time: 21:45 10/14 21:11 Order name: EKG - Nurse/Tech; Complete Time: 23:09 10/14 21:11 Order name: IV Saline Lock; Complete Time: 23:09 10/14 21:11 Order name: Labs collected and sent; Complete Time: 23:09 cp 10/14 21:11 Order name: O2 Per Protocol; Complete Time: 21:45 cp 10/14 21:11 Order name: O2 Sat Monitoring; Complete Time: 21:45 cp 10/14 21:24 Order name: Urine Dipstick-Ancillary (obtain specimen); Complete Time: 23:07 cp 10/14 21:24 Order name: Urine Test (obtain specimen); Complete Time: 23:07 cp 10/15 02:37 Order name: PO challenge; Complete Time: 02:56 cp EC/01 22:30 Rate is 108 beats/min. Rhythm is regular. [place] interval is normal. QRS interval is cp normal. QT interval is normal. T waves are Inverted in lead aVR. Interpreted by me. Reviewed by me. Administered Medications: 10/15 03:00 Discontinued: NS 0.9% 1000 ml IV at 125 ml/hr continuous 10/14 22:30 Drug: NS 0.9% 1000 ml Route: IV; Rate: 1 bolus; Site: right antecubital; 10/15 02:59 Follow up: Response: No adverse reaction; IV Status: Completed infusion; IV Intake: as6 1000ml 10/14 22:35 Drug: Ketorolac 15 mg Route: IVP; Site: right antecubital; 10/15 02:59 Follow up: Response: No adverse reaction 10/14 22:35 Drug: fentaNYL (PF) 25 mcg Route: IVP; Site: right antecubital; 10/15 02:59 Follow up: Response: No adverse reaction 10/14 23:57 Drug: Rocephin - (cefTRIAXone) 1 grams Route: IVPB; Infused Over: 30 mins; Site: left cg antecubital; 10/15 02:59 Follow up: Response: No adverse reaction; IV Status: Completed infusion; IV Intake: [id number] 10/14 23:57 Drug: Zithromax (azithromycin) 500 mg Route: IVPB; Infused Over: 1 hrs; Site: right cg antecubital; 10/15 03:00 Follow up: Response: No adverse reaction; IV Status: Completed infusion; IV Intake: as6 250ml 00:39 Drug: NS 0.9% 1000 ml Route: IV; Rate: 125 ml/hr; Site: right antecubital; as6 02:56 Drug: Potassium Effervescent Tablet 50 mEq Route: PO; 03:00 Follow up: Response: No adverse reaction as6 02:59 Drug: Cipro (ciprofloxacin) 500 mg Route: PO; 03:00 Follow up: Response: No adverse reaction as6 Disposition Summary: 10/15/21 02:44 Discharge Ordered Location: Home cp Problem: new cp Symptoms: have improved cp Condition: Stable cp Diagnosis - Pyelonephritis acute cp Followup: cp - With: Private Physician - When: 2 - 3 days - Reason: Recheck today's complaints Discharge Instructions: - Discharge Summary Sheet cp - Pyelonephritis, Adult cp Forms: - Medication Reconciliation Form cp - Thank You Letter cp - Antibiotic Education cp - Prescription Opioid Use cp Prescriptions: - Zofran 4 mg Oral Tablet - take 1 tablet by ORAL route every 12 hours As needed; 20 tablet; Refills: 0, cp Product Selection Permitted - Cipro 500 mg Oral Tablet - take 1 tablet by ORAL route every 12 hours for 10 days; 20 tablet; Refills: 0, cp Product Selection Permitted - Ibuprofen 800 mg Oral Tablet - take 1 tablet by ORAL route every 8 hours As needed take with food; 30 tablet; cp Refills: 0, Product Selection Permitted Signatures: Dispatcher [employer] EDVickey Perez PA PA cp Garcia, Cindy, RN CARIDAD Ann Sims RN RN Kalpesh Dodd RN RN as6
--- NOTE | 2021-10-15 02:44 | ER ---
Nurse's Notes [facility] Name: Nany Bhat Age: 51 yrs Sex: Female : 1970 Arrival Date: 10/14/2021 Time: 20:09 Bed 26 Private MD: Diagnosis: Pyelonephritis acute Presentation: 10/14 20:20 Chief complaint: Tested COVID + 8/19, c/o worsening SOB, nausea, cough, body aches, and hb headache. Took Tylenol and Advil 1 hour [employer]. Coronavirus screen: Client presents with at least one sign or symptom that may indicate coronavirus-19. Standard/surgical mask placed on the client. Provider contacted for isolation considerations. Ebola Screen: No symptoms or risks identified at this time. Risk Assessment: Do you want to hurt yourself or someone else? Patient reports no desire to harm self or others. Onset of symptoms was September 2021. 20:20 Method Of Arrival: Ambulatory hb 20:20 Acuity: ANTHONY 2 hb 21:09 Initial Sepsis Screen: Does the patient meet any 2 criteria? RR > 20 per min. Temp as6 <36.0*C (96.8*F)) or > 38.3*C (100.9*F). HR > 90 bpm. Yes Does the patient have a suspected source of infection? Yes: Productive cough/pneumonia. Historical: - Allergies: 20:21 Morphine; hb 20:21 PENICILLINS; hb 20:21 tramadol; hb - PMHx: 20:21 ADD/ADHD; Chronic Pancreatitis; Depression; HEP C; left leg DVT; liver and pancrease hb laceration when she was 10; - Immunization history:: Adult Immunizations up to date. - Social history:: Smoking status: Patient reports the use of cigarette tobacco products, denies chronic smoking, but will smoke occasionally. Screenin:09 Abuse screen: Denies threats or abuse. Denies injuries from another. Nutritional as6 screening: No deficits noted. Tuberculosis screening: No symptoms or risk factors identified. Fall Risk None identified. Assessment: 21:08 General: Appears uncomfortable, ill, Behavior is calm, cooperative. Pain: Complains of as6 pain in generalized. Neuro: Level of Consciousness is awake, alert, Reports headache. Respiratory: Reports shortness of breath cough that is Respiratory effort is even, unlabored. 10/15 01:07 Reassessment: Patient appears in no apparent distress at this time. as6 02:22 Reassessment: Patient appears in no apparent distress at this time. as6 Vital Signs: 10/14 20:20 BP 137 / 75; Pulse 129; Resp 24; Temp 103.2(O); Pulse Ox 99% ; Weight 81.65 kg; Height hb 5 ft. 2 in. (157.48 cm); Pain 8/10; 21:09 BP 104 / 64; Pulse 110; Resp 29 S; Pulse Ox 97% on R/A; as6 23:52 BP 115 / 73; Pulse 98; Resp 24 S; Pulse Ox 96% on R/A; as6 10/15 00:00 Temp 99.1; cg 01:08 BP 96 / 59; Pulse 95; Resp 16 S; Pulse Ox 97% on R/A; as6 02:22 BP 109 / 71; Pulse 84; Resp 17 S; Pulse Ox 97% on R/A; as6 10/14 20:20 Body Mass Index 32.92 (81.65 kg, 157.48 cm) hb ED Course: 10/14 20:09 Patient arrived in ED. ja2 20:21 Triage completed. hb 20:21 Arm band placed on. hb 20:27 Kalpesh Dodd, CARIDAD is Primary Nurse. as6 20:55 Vickey Whelan PA is PHCP. cp 20:55 Vickey Kelly MD is Attending Physician. cp 21:09 Bed in low position. Call light in reach. Side rails up X2. as6 21:30 XRAY Chest (1 view) In Process Unspecified. EDMS 22:00 Inserted saline lock: 20 gauge in right antecubital area, using aseptic technique. as6 Blood collected. 10/15 00:48 US Extremity Venous W Compression Richard In Process Unspecified. EDMS 01:42 CT Chest For PE Angio In Process Unspecified. EDMS 01:42 CT Abd/Pelvis - IV Contrast Only In Process Unspecified. EDMS 03:00 No provider procedures requiring assistance completed. as6 03:01 IV discontinued, intact, bleeding controlled, No redness/swelling at site. Pressure as6 dressing applied. Administered Medications: 03:00 Discontinued: NS 0.9% 1000 ml IV at 125 ml/hr continuous as6 10/14 22:30 Drug: NS 0.9% 1000 ml Route: IV; Rate: 1 bolus; Site: right antecubital; as6 10/15 02:59 Follow up: Response: No adverse reaction; IV Status: Completed infusion; IV Intake: as6 1000ml 10/14 22:35 Drug: Ketorolac 15 mg Route: IVP; Site: right antecubital; as6 10/15 02:59 Follow up: Response: No adverse reaction as6 10/14 22:35 Drug: fentaNYL (PF) 25 mcg Route: IVP; Site: right antecubital; as6 10/15 02:59 Follow up: Response: No adverse reaction as6 10/14 23:57 Drug: Rocephin - (cefTRIAXone) 1 grams Route: IVPB; Infused Over: 30 mins; Site: left cg antecubital; 10/15 02:59 Follow up: Response: No adverse reaction; IV Status: Completed infusion; IV Intake: [id number] 10/14 23:57 Drug: Zithromax (azithromycin) 500 mg Route: IVPB; Infused Over: 1 hrs; Site: right cg antecubital; 10/15 03:00 Follow up: Response: No adverse reaction; IV Status: Completed infusion; IV Intake: as6 250ml 00:39 Drug: NS 0.9% 1000 ml Route: IV; Rate: 125 ml/hr; Site: right antecubital; as6 02:56 Drug: Potassium Effervescent Tablet 50 mEq Route: PO; as6 03:00 Follow up: Response: No adverse reaction as6 02:59 Drug: Cipro (ciprofloxacin) 500 mg Route: PO; as6 03:00 Follow up: Response: No adverse reaction as6 Medication: 03:01 VIS not applicable for this client. as6 Intake: 02:59 IV: 1000ml; Total: 1000ml. as6 02:59 IV: 50ml; Total: 1050ml. as6 03:00 IV: 250ml; Total: 1300ml. as6 Outcome: 02:44 Discharge ordered by MD. gaytan 03:01 Discharged to home ambulatory. as6 03:01 Condition: stable 03:01 Discharge instructions given to patient, Instructed on discharge instructions, follow up and referral plans. medication usage, Demonstrated understanding of instructions, follow-up care, medications, Prescriptions given X 3. 03:01 Patient left the ED. as6 Addendum: 10/18/2021 07:19 Addendum: Culture Results: Positive urine culture. No further action required. Bacteria e b sensitive to prescribed antibiotic. Signatures: Dispatcher [employer] EDMS Vickey Whelan PA PA cp Garcia, Cindy, RN RN Ann Mckeon, RN Clarita Vogt Jessica ja2 Slawson, Ashby RN RN as6
[2021-10-15] MEDS ORDERED: POTASSIUM 25 MEQ EFFERV TAB ONE (02:54)
[2021-10-15] MEDS ORDERED: CIPROFLOXACIN HCL 500 MG TAB ONE (03:07)
[2021-10-15 04:51] VITALS: TEMP 99.1
[2021-10-15 04:53] VITALS: O2SAT 97
[2021-10-15 04:55] VITALS: BP 109/71
--- NOTE | 2021-10-15 07:19 | EKG ---
Test Date: 2021-10-14 Test Time: 22:24:27 Case Specialist: MEASUREMENT RESULTS: Intervals: Rate: 108 NH: 124 QRSD: 74 QT: 308 QTc: 412 Morrice: P: 66 NH: 124 QRS: 43 T: 50 INTERPRETIVE STATEMENTS: Sinus tachycardia Otherwise normal ECG Compared to ECG 11/01/2017 00:27:06 Sinus rhythm no longer present Electronically Signed On 10-15-21 07:18:14 CDT by Manjinder Conti
--- NOTE | 2021-10-15 12:10 | RAD REPORT ---
EXAM DESCRIPTION: US - Extrem Venous W Compress Richard - 10/15/2021 12:46 am CLINICAL HISTORY: 51 years, Female, PAIN COMPARISON: None. FINDINGS: Grayscale imaging as well as spectral and color Doppler interrogation of the deep venous s ystem of bilateral lower extremity was performed with visualization from the common femoral veins to the popliteal veins and posterior tibial vein. There is normal compressibility, augmentation and flow with no visualized thrombus. No focal fluid collection is identified. IMPRESSION: No bilateral lower extremity DVT. Electronically signed by: Tiburcio Walker DO 10/15/2021 1:06 AM CDT Due to temporary technical issues with the PACS/Fluency reporting system, reports are being signed by the in house radiologists without review as a courtesy to insure prompt reporting. The interpreting radiologist is fully responsible for the content of the report.
--- NOTE | 2021-10-15 12:15 | RAD REPORT ---
EXAM DESCRIPTION: CT - Abdomen Pelvis W Contrast - 10/15/2021 4:16 am CLINICAL HISTORY: Chest pain COMPARISON: 11/02/1979 TECHNIQUE: CTA of the chest obtained following IV administration of iodinated contrast. 3-D/MIP refo rmatted images available. CT of the abdomen and pelvis was then performed in the portal venous phase This exam was performed according to our departmental dose-optimization program, which includes autom ated exposure control, adjustment of the mA and/or kV according to patient size and/or use of iterati ve reconstruction technique. FINDINGS: Chest: Pulmonary arteries: Contrast bolus is adequate.No filling defects identified in the pulmonary arterie s to suggest pulmonary embolus. Mild dilation of the main pulmonary artery. Thyroid: No abnormalities of the visualized thyroid. Great Vessels: Great vessels have normal anatomic configuration. Thoracic Aorta: No abnormalities of the thoracic aorta identified. Heart: No cardiomegaly, significant pericardial effusion, or coronary artery atherosclerosis Lymph Nodes: No enlarged mediastinal lymph nodes identified. Esophagus: No abnormalities of the esophagus identified. Other: No additional findings. Lungs: Mild bilateral dependent atelectasis. No confluent airspace consolidation. Pleura: No pleural effusion or pneumothorax. Trachea/Airways: No abnormalities of the visualized trachea or airways. Abdomen: Liver: Hepatomegaly with mildly nodular contour. Gallbladder: Prior cholecystectomy. Spleen, Pancreas, and Adrenal Glands: Splenomegaly. The pancreas and adrenal glands are unremarkabl e. Kidneys: Focal cortical hypodensities with minimal adjacent fat stranding. Small bilateral renal cy sts. No hydronephrosis. Vasculature: The aorta and IVC have normal caliber and position. The portal vein is patent. The pro ximal visceral and renal arteries are patent. Stomach: The stomach and duodenum have normal course. Other: No free intraperitoneal air. Likely reactive periaortic lymph nodes. Pelvis: Bladder: Urinary bladder is unremarkable. Bowel: No dilated loops of large or small bowel. Appendix: Normal appendix. Pelvis: Uterus is not enlarged. 3.0 cm right ovarian cyst. Bones: Mild endplate spondylosis. IMPRESSION: 1. No evidence of pulmonary embolus. 2. Focal cortical hypodensities in the right kidney with minimal adjacent fat stranding. These find ings could be seen with pyelonephritis. Correlation with urinalysis recommended. 3. Splenomegaly. 4. Hepatomegaly with mildly nodular contour. This could be seen with cirrhosis. 5. 3.0 cm benign appearing right ovarian cyst. No follow-up imaging recommended. Electronically signed by: Jose Aragon 10/15/2021 2:24 AM CDT Due to temporary technical issues with the PACS/Fluency reporting system, reports are being signed by the in house radiologists without review as a courtesy to insure prompt reporting. The interpreting radiologist is fully responsible for the content of the report.
== END 2021-10-15 03:01 | disposition home or self-care (01) ==
LOC: ER 20:07
DX: N10 Acute pyelonephritis (principal); Z20.822 Contact with and (suspected) exposure to COVID-19; F17.210 Nicotine dependence, cigarettes, uncomplicated; Z88.0 Allergy status to penicillin; Z88.5 Allergy status to narcotic agent
CPT/HCPCS: 36415; 71045; 71275; 74177; 80048; 80076; 81003; 81015; 81025; 83605; 83735; 83880; 84145; 84484; 85025; 85610; 87040; 87070; 87077; 87081; 87086; 87088; 87186; 87804; 93005; 93970; 99284; J0456; J3010; J7030; J7050; Q9967; U0003

== ENCOUNTER 2022-08-18 08:27 | Emergency (ER) | payer SELFPAY ==
--- OUTSIDE RECORDS SUMMARY | 2022-08-18 08:32 | XMS REPORT | Continuity of Care Document ---
:1970 Author Organization [facility] t Address [address] [place] [address]. [address] [place] [address] Care Team Providers Name Role Phone No, Pcp [facility] [place] Primary Care Physician Unavailable Ash Elaine MD Attending Clinician LEONARD ROSENTHAL Attending Clinician Unavailable Leonard Rosenthal DO Attending Clinician Addie MCLEAN, Taylor Attending Clinician Unavailable Miles Lynn MD Attending Clinician Steve Martinez MD Attending Clinician Raúl Neri MD Attending Clinician Nida Kiser NP Attending Clinician NIDA KISER Attending Clinician Unavailable SUMAYA Attending Clinician Unavailable WILLY FARNSWORTH Attending Clinician Unavailable LEONARD ROSENTHAL Admitting Clinician Unavailable Miles Lynn MD Admitting Clinician MILES LYNN Admitting Clinician Unavailable SUMAYA Admitting Clinician Unavailable WILLY FARNSWORTH Admitting Clinician Unavailable Payers Payer Name Policy Type Policy Number Effective Date Expiration Date S mary [place]: [id number] 2015 [employer] 00:00:00 [place] [id number] [place] Problems Condition Condition Condition Status Onset Resolution Last Treating Co mments Source Name Details Category Date Date Treatment Clinician Date Ureteral Ureteral Disease Active Unive rs stone stone 6-03 ity of 00:00: [place] [facility] Rectal Rectal Disease Active 2020-02 Univers bleeding bleeding 2-16 ity of 00:00: [place] 00 [facility] Other Other Disease Active 2020-02 Univers constipati constipati 2-16 it y of on on 00:00: [place] [facility] Loss of Loss of Disease Active 2020-02 Univers weight weight 2-16 ity of 00:00: [place] [facility] Nausea and Nausea and Disease Active 2020-02 U nivers vomiting, vomiting, 2-16 ity of intractabi intractabi [place] lity of lity of 00 Medical vomiting vomiting Branch not not specified, specified, unspecifie unspecifie d vomiting d vomiting type type Vertigo Vertigo Disease Active 2020-02 Univers 2-16 ity of 00:00: [place] [facility] 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 00:[facility] Center Anxiety Anxiety Disease Active [facility] 00:[facility] [place]ol[place] Disease Active [facility] lithiasis lithiasis 9-20 [facility] 00:00: Medical 00 [place] Acute Acute Disease Active [facility] biliary biliary 9-20 [facility] pancreatit pancreatit 00:00: Me dical is without is without 00 Ce nter infection infection or or necrosis necrosis Acute Acute Disease Active [facility] cystitis cystitis 9-20 [facility] without without 00:00: Medical hematuria hematuria 00 Cent er Animal Animal Disease Active Univers bite of bite of 9-30 ity of foot, foot, 00:00: [place] right, right, 00 Medical initial initial Branch encounter encounter Obesity Obesity Disease Active Univers (BMI (BMI 9-30 ity of 30-39.9) 30-39.9) 00:00: [place] [address] Medical Branch Allergies, Adverse Reactions, Alerts Allergy Allergy Status Severity Reaction(s) Onset Inactive Treating Comm ents Source Name Type Date Date Clinician Morphine Propensi Active Hives, [facility] ty to Itching 9-19 [facility] adverse 00:00: Medical reaction 00 Center s Nicotine Propensi Active Itching, 2018- [facility] ty to Rash 9 [facility] adverse 00:00: Medical reaction 00 Center s Penicill Propensi Active Hives, [address] [facility] [facility] ins ty to Itching, 9- [facility] adverse Rash 00:00: Medical reaction 00 Center s Tramadol Propensi Active Hives, 2018- [facility] ty to Itching, 9 [facility] adverse Rash 00:00: Medical reaction 00 Center s Penicill Propensi Active Hives, [address] [facility] ins ty to Itching, 9 [facility] adverse Rash 00:00: Medical reaction 00 Center s Meperidi Propensi Active Rash Univer s ne ty to 5-13 ity of adverse 00:00: [place] reaction 00 Medical s Branch Opioids Propensi Active Rash Patient Univer s - ty to 5-13 reports ity of Morphine adverse 00:00: one [place] Analogue reaction 00 episode Medic al s s of rash Branch to morphine. She reports tolerated hydromorp hai and fentanyl w/o anaphylax is/rash. Penicill Propensi Active Nausea Univer s ins ty to and/or 5-13 ity of adverse Vomiting 00:00: [place] reaction 00 Medical s Branch MEPERIDI DRUG Active Rash Univers NE INGREDI 5-13 ity of 00:00: [place] 00 Medical Branch OPIOIDS Drug Active Med Rash Univers - Class 5-13 ity of MORPHINE 00:00: [place] ANALOGUE 00 Medical S Branch PENICILL Drug Active N/V Univers INS Class 5-13 ity of 00:00: [place] 00 Medical Branch Family History Family Member Diagnosis Comments Start Date Stop Date Source Natural mother No Known Problem [facility] Social History Social Habit Start Date Stop Date Quantity Comments Source History of tobacco Smokes tobacco Un iversity of use daily [facility] Tobacco use and 2022-07-16 2022-07-16 Smokeless Universit y of exposure 00:00:00 00:00:00 tobacco non-user [facility] Alcohol intake 2017-11-06 2017[facility]11-06 [facility] non-drinker of [facility] nter alcohol (finding) Cigarette 2017-11-02 2017-11-[address] [facility] pack-years 00:00:00 00:00:00 [facility] Cigarettes smoked 2017-11-02 2017-11-02 ADITYA Banda current (pack per 00:00:00 00:00:00 [facility] day) - Reported Sex [birth year] At [birth year] ADITYA Ayoubs 00:00:00 00:00:00 [facility] Smoking Status Start Date Stop Date Source Smokes tobacco daily 2022-07-16 00:00:[address] [facility] Medications Ordered Filled Start Stop Current Ordering Indication Dosage Frequency Signature Comments Components Source Medication Medication Date Date Medication? Clinician (SIG) Name Name oxyBUTYnin Yes 5mg 5 mg, Univer s chloride 08-01 Oral, BID, ity o f (DITROPAN) 13:00: First dose [place] tablet 5 mg 00 on Mon Medica l 08/01/22 at Branch 0800, Until Discontinu ed, Routine ketorolac 2022- Yes 15mg 15 mg, Unive rs (TORADOL) 08-01 Slow IV ity of injection 05:00: 04:59 Push, Q6H, [place] 15 mg 00 :00 4 doses, Medical First dose Branch on Mon08/01/22 at 0000, Last dose on Mon08/01/22 at 1800, Routine cefTRIAXone Yes 500mg 500 mg, Un rosalie (ROCEPHIN) 08-01 Intramuscu ity of injection 04:45: lar, Q24H, [place] 500 mg 00 First dose Medical on [place] Branch 07/31/22 at 2345, Until Discontinu ed, ALEKSANDR
Re ason for Anti-Infec tive: Empiric Therapy for Suspected Infection< br>Empiric Therapy Site: Urine<b r>Duration of therapy: 72 hours HYDROcodone 2022- No 1{tbl} 1 tablet, Univers -acetaminop 08-01 Oral, ity of hen (NORCO) 04:45: 03:42 ONCE, 1 [place] 10-325 mg 00 :00 dose, On Medica l tablet 1 [place] Branch tablet 07/31/22 at 2345, Routine azithromyci 2022- No 1000mg 1,000 mg, Univers n 08-01 Oral, ity of (ZITHROMAX) 03:45: 03:53 ONCE, 1 [place] tablet 00 :00 dose, On Medical 1,000 mg [facility] 07/31/22 at 2245, ALEKSANDR
Re ason for Anti-Infec tive: Empiric Therapy for Suspected Infection< br>Empiric Therapy Site: Pelvic
Duration of therapy: 72 hours NaCl 0.9% 2022- No 1000mL at 999 Uni vers (NS) bolus 08-01 mL/hr, ity of infusion 02:45: 04:00 1,000 mL, Ron[place] as 1,000 mL 00 :00 IV Medical Piggyback, Branch ONCE, 1 dose, On [place] 07/31/22 at 2145, STAT ondansetron 2022- No 4mg 4 mg, Slow Univers (ZOFRAN 08-01 IV Push, ity of (PF)) 01:45: 02:07 ONCE, 1 [place] injection 4 00 :00 dose, On Medi bridgette mg [facility] 07/31/22 at 2045, Routine ibuprofen 0 Yes [id number] 600mg Take 1 U nivers 600 mg 6-04 tablet by ity of tablet 00:00: mouth [place] 00 every 6 Medical (six) Branch hours as needed (Alternate with Tylenol). acetaminoph 0 Yes [id number] 650mg Take 1 Univers en (TYLENOL 6-04 tablet by ity of 8 HOUR) 650 00:00: mouth [place] mg CR 00 every 8 Medical tablet (eight) Branch hours as needed for Pain (Alternate with Ibuprofen every 3 hours). fluconazole 0 Yes [id number] 150mg Take 1 Univers 150 mg 6-04 tablet by ity of tablet 00:00: mouth as [place] 00 needed Medical (Vaginal Branch candidiasi s). ibuprofen 2022-0 Yes [id number] 600mg Take 1 U nivers 600 mg 6-04 tablet by ity of tablet 00:00: mouth [place] 00 every 6 Medical (six) Branch hours as needed (Alternate with Tylenol). acetaminoph 2022-0 Yes [id number] 650mg Take 1 Univers en (TYLENOL 6-04 tablet by ity of 8 HOUR) 650 00:00: mouth [place] mg CR 00 every 8 Medical tablet (eight) Branch hours as needed for Pain (Alternate with Ibuprofen every 3 hours). fluconazole 2023-0 Yes [id number] 150mg Take 1 Univers 150 mg 6-04 tablet by ity of tablet 00:00: mouth as [place] 00 needed Medical (Vaginal Branch candidiasi s). ibuprofen 2023-0 Yes [id number] 600mg Take 1 U nivers 600 mg 6-04 tablet by ity of tablet 00:00: mouth [place] 00 every 6 Medical (six) Branch hours as needed (Alternate with Tylenol). acetaminoph 2023-0 Yes [id number] 650mg Take 1 Univers en (TYLENOL 6-04 tablet by ity of 8 HOUR) 650 00:00: mouth [place] mg CR 00 every 8 Medical tablet (eight) Branch hours as needed for Pain (Alternate with Ibuprofen every 3 hours). fluconazole 2023-0 Yes [id number] 150mg Take 1 Univers 150 mg 6-04 tablet by ity of tablet 00:00: mouth as [place] 00 needed Medical (Vaginal Branch candidiasi s). ibuprofen 2023-0 Yes [id number] 600mg Take 1 U nivers 600 mg 6-04 tablet by ity of tablet 00:00: mouth [place] 00 every 6 Medical (six) Branch hours as needed (Alternate with Tylenol). acetaminoph 2023-0 Yes [id number] 650mg Take 1 Univers en (TYLENOL 6-04 tablet by ity of 8 HOUR) 650 00:00: mouth [place] mg CR 00 every 8 Medical tablet (eight) Branch hours as needed for Pain (Alternate with Ibuprofen every 3 hours). fluconazole 2023-0 Yes [id number] 150mg Take 1 Univers 150 mg 6-04 tablet by ity of tablet 00:00: mouth as [place] 00 needed Medical (Vaginal Branch candidiasi s). ibuprofen 2023-0 Yes [id number] 600mg Take 1 U nivers 600 mg 6-04 tablet by ity of tablet 00:00: mouth [place] 00 every 6 Medical (six) Branch hours as needed (Alternate with Tylenol). acetaminoph 2023-0 Yes [id number] 650mg Take 1 Univers en (TYLENOL 6-04 tablet by ity of 8 HOUR) 650 00:00: mouth [place] mg CR 00 every 8 Medical tablet (eight) Branch hours as needed for Pain (Alternate with Ibuprofen every 3 hours). fluconazole Yes [id number] 150mg Take 1 Univers 150 mg 6-04 tablet by ity of tablet 00:00: mouth as [place] 00 needed Medical (Vaginal Branch candidiasi s). sulfamethox 2022- Yes [id number] 1{tbl} Take 1 Univers azole-trime 6-04 06-19 tablet by it y of thoprim 00:00: 04:59 mouth in [place] (BACTRIM 00 :00 the Medical DS) 800-160 morning Branc h mg per and 1 tablet tablet in the evening. Do all this for 14 days. sulfamethox 2022- Yes [id number] 1{tbl} Take 1 Univers azole-trime 6-04 06-19 tablet by it y of thoprim 00:00: 04:59 mouth in [place] (BACTRIM 00 :00 the Medical DS) 800-160 morning Branc h mg per and 1 tablet tablet in the evening. Do all this for 14 days. sulfamethox 2022- No [id number] 1{tbl} Take 1 Univers azole-trime 6-04 06-19 tablet by it y of thoprim 00:00: 04:59 mouth in [place] (BACTRIM 00 :00 the Medical DS) 800-160 morning Branc h mg per and 1 tablet tablet in the evening. Do all this for 14 days. sulfamethox 2022- Yes [id number] 1{tbl} Take 1 Univers azole-trime 6-04 06-19 tablet by it y of thoprim 00:00: 04:59 mouth in [place] (BACTRIM 00 :00 the Medical DS) 800-160 morning Branc h mg per and 1 tablet tablet in the evening. Do all this for 14 days. ketorolac 2022- Yes 15mg 15 mg, Unive rs (TORADOL) 07-16 Slow IV ity of injection 18:21: 04:59 Push, [place] 15 mg 00 :00 Q6HPRN, 4 Medical doses, Branch Starting on 07/16/22 at 1321, Until Mon07/20/22 at 2359, Routine, Pain (scale 7-10) ketorolac 2022- No 15mg 15 mg, Unive rs (TORADOL) 07-16- Slow IV ity of injection 18:21: 21:43 Push, [place] 15 mg 00 :09 Q6HPRN, 4 Medical doses, Branch Starting on 07/16/22 at 1321, Until 07/17/22 at 1643, Routine, Pain (scale 7-10) acetaminoph 0 Yes 650mg 650 mg, Un rosalie en 03 Oral, Q6H, ity of (TYLENOL) 17:00: First dose [place] tablet 650 00 on Sat Medical mg 07/16/22 at Branch 1200, Until Discontinu ed, Routine acetaminoph 2022-0 2022- No 650mg 650 mg, U nivers en 07-1604 Oral, Q6H, ity of (TYLENOL) 17:00: 21:43 First dose [place] tablet 650 00 :09 on Sat Medical mg 07/16/22 at Branch 1200, Until Discontinu ed, Routine lactated 0 Yes 1000mL at 75 Univer s ringers IV 6-03 mL/hr, ity of infusion 15:15: 1,000 mL, [place] 1,000 mL 00 IV Medical Infusion, Branch CONTINUOUS , Starting on 07/16/22 at 1015, Until Discontinu ed, Routine, PACU lactated 2022-0 2022- No 1000mL at 75 Unive rs ringers IV 07-16-04 mL/hr, ity of infusion 15:15: 21:43 1,000 mL, [place] 1,000 mL 00 :09 IV Medical Infusion, Branch CONTINUOUS , Starting on 07/16/22 at 1015, Until 07/17/22 at 1643, Routine, PACU ondansetron 2022-2022- No Slow IV Un rosalie (ZOFRAN 07-16 Push, ONCE ity o f (PF)) 14:45: 15:13 INTRA [place] injection 00 :12 PROCEDURE, Medi bridgette Starting Branch on 07/16/22 at 0945, Until 07/16/22 at 1013, Routine, Intra-op PHENYLephri 2022-0 2022- No Slow IV Un rosalie ne 1000 07-16 Push, ONCE ity o f mcg/10 mL 14:43: 15:13 INTRA [place] in 0.9% 00 :12 PROCEDURE, Medica l NaCl Starting Branch syringe on 07/16/22 at 0943, Until 07/16/22 at 1013, Routine, Intra-op dexamethaso 2022- No IV Push, U nivers ne 07-16 ONCE INTRA ity of (DECADRON 14:36: 15:13 PROCEDURE, [place] PHOSPHATE) 00 :12 Starting Medic al injection on Sat Branch 07/16/22 at 0936, Until 07/16/22 at 1013, Routine, Intra-op lidocaine 2022- No Slow IV Univ ers 1% 07-16 Push, ONCE ity of (XYLOCAINE) 14:36: 15:13 INTRA [place] 100 mg/10 00 :12 PROCEDURE, Medi bridgette mL (1 %) Starting Branch injection on 07/16/22 at 0936, Until 07/16/22 at 1013, Routine, Intra-op propofoL IV 2022- No IV Unive rs infusion 07-16 Infusion, ity o f 14:36: 15:13 ONCE INTRA [place] 00 :12 PROCEDURE, Medical Starting Branch on 07/16/22 at 0936, Until 07/16/22 at 1013, Routine, Intra-op lactated 2022- No IV Univers ringers IV 07-16 Infusion, ity of infusion 14:33: 15:13 CONTINUOUS [place] 00 :12 PRN, Medical Starting Branch on 07/16/22 at 0933, Until 07/16/22 at 1013, Routine, Intra-op FENTanyl PF 2022- No Epidural, Univers (SUBLIMAZE 07-16 ONCE INTRA it y of (PF)) 14:31: 15:13 PROCEDURE, [place] injection 00 :12 Starting Medica l on Sat Branch 07/16/22 at 0931, Until Discontinu ed, Routine, Intra-op midazolam 2022- No IV Push, Uni vers (VERSED) 07-16 ONCE INTRA ity of injection 14:31: 15:13 PROCEDURE, [place] 00 :12 Starting Medical on Sat Branch 07/16/22 at 0931, Until Discontinu ed, Routine, Intra-op famotidine 2022-2022- No Slow IV Uni vers (PEPCID 07-16 Push, ONCE ity o f (PF)) 14:20: 15:13 INTRA [place] injection 00 :12 PROCEDURE, Medi bridgette Starting Branch on 07/16/22 at 0920, Until 07/16/22 at 1013, Routine, Intra-op NaCl 0.9% 2022- No 500mL at 999 Univ ers (NS) bolus 07-16 mL/hr, 500 it y of infusion 14:00: 18:01 mL, IV [place] 500 mL 00 :00 Piggyback, Medical ONCE, 1 Branch dose, On 07/16/22 at 0900, STAT NaCl 0.9% 2022-0 2022- No 500mL at 999 Univ ers (NS) bolus 07-16 mL/hr, 500 it y of infusion 14:00: 18:01 mL, IV [place] 500 mL 00 :00 Piggyback, Medical ONCE, 1 Branch dose, On [facility] 07/16/22 at 0900, STAT cefTRIAXone 2022-2022- No 1000mg 1,000 mg, Univers (ROCEPHIN) 07-16 IV ity of 1,000 mg in 13:30: 13:[facility] [place] NaCl 0.9% 00 :27 Q24H ABX, Medic al (NS) 100 mL 2 doses, Bran ch MINI-BAG First dose on [facility] 07/16/22 at 0830, Last dose on [place] 07/17/22 at 0830, Administer over 30 Minutes, 100 mL
Reas on for Anti-Infec tive: Empiric Therapy for Suspected Infection< br>Empiric Therapy Site: Urine
D uration of therapy: 72 hours cefTRIAXone 2022- No 1000mg 1,000 mg, Univers (ROCEPHIN) 07-1604 IV ity of 1,000 mg in 13:30: 13:46 Piggyback, [place] NaCl 0.9% 00 :27 Q24H ABX, Medic al (NS) 100 mL 2 doses, Bran ch MINI-BAG First dose on [facility] 07/16/22 at 0830, Last dose on 07/17/22 at 0830, Administer over 30 Minutes, 100 mL
Reas on for Anti-Infec tive: Empiric Therapy for Suspected Infection< br>Empiric Therapy Site: Urine
D uration of therapy: 72 hours ketorolac 2023-0 2023- No 15mg 15 mg, Unive rs (TORADOL) 07-16-03 Slow IV ity of injection 13:00: 12:14 Push, [place] 15 mg 00 :00 ONCE, 1 Medical dose, On Branch 07/16/22 at 0800, Routine ketorolac 2023-0 2023- No 15mg 15 mg, Unive rs (TORADOL) 07-16-03 Slow IV ity of injection 13:00: 12:14 Push, [place] 15 mg 00 :00 ONCE, 1 Medical dose, On Branch 07/16/22 at 0800, Routine D5W 0.45% 2023-0 Yes 1000mL at 100 Univ ers NaCl 6-03 mL/hr, ity of (1/2NS) IV 12:30: 1,000 mL, [place] infusion 00 IV Medical 1,000 mL Infusion, Branch CONTINUOUS , Starting on 07/16/22 at 0730, Until Discontinu ed, Routine D5W 0.45% 2023-0 2023- No 1000mL at 100 Uni vers NaCl 07-16 06-04 mL/hr, ity of (1/2NS) IV 12:30: 21:43 1,000 mL, [place] infusion 00 :09 IV Medical 1,000 mL Infusion, Branch CONTINUOUS , Starting on 07/16/22 at 0730, Until [place] 07/17/22 at 1643, Routine NaCl 0.9% 2023-0 2023- No 500mL at 999 Univ ers (NS) bolus 6- 06-03 mL/hr, 500 it y of infusion 12:30: 12:57 mL, IV [place] 500 mL 00 :00 Infusion, Medical ONCE, 1 Branch dose, On 07/16/22 at 0730, Routine NaCl 0.9% 2023-0 2023- No 500mL at 999 Univ ers (NS) bolus 6- 06-03 mL/hr, 500 it y of infusion 12:30: 12:57 mL, IV [place] 500 mL 00 :00 Infusion, Medical ONCE, 1 Branch dose, On 07/16/22 at 0730, Routine ondansetron Yes 4mg 4 mg, Slow Univers (ZOFRAN 07-16 IV Push, ity of (PF)) 12:20: Q4HPRN, [place] injection 4 13 Starting Medi bridgette mg on Sat Branch 07/16/22 at 0720, Until Discontinu ed, Routine, Nausea and Vomiting (N/V) ondansetron 0 2022- No 4mg 4 mg, Slow Univers (ZOFRAN 07-16-04 IV Push, ity of (PF)) 12:20: 21:43 Q4HPRN, [place] injection 4 13 :09 Starting Medi bridgette mg on Sat Branch 07/16/22 at 0720, Until 07/17/22 at 1643, Routine, Nausea and Vomiting (N/V) acetaminoph 2022- No 1000mg 1,000 mg, Univers en 07-16 Oral, ity of (TYLENOL) 10:00: 09:09 ONCE, 1 [place] tablet 00 :00 dose, On Medical 1,000 mg 07/16/22 Branc h at 0500, Routine FENTanyl PF 2022- No 50ug 50 mcg, Un rosalie (SUBLIMAZE 07-16 Slow IV ity o f (PF)) 08:15: 08:54 Push, [place] injection 00 :00 ONCE, 1 Medical 50 mcg dose, On Branch 07/16/22 at 0315, STAT FENTanyl PF 2022- No 50ug 50 mcg, Un rosalie (SUBLIMAZE 07-16 Slow IV ity o f (PF)) 06:30: 06:02 Push, [place] injection 00 :00 ONCE, 1 Medical 50 mcg dose, On Branch 07/16/22 at 0130, Routine NaCl 0.9% 2022- No 1000mL at 999 Uni vers (NS) IV 07-1603 mL/hr, ity of infusion 05:00: 05:30 Intravenou [place] 1,000 mL 00 :00 s, ONCE, 1 Medic al dose, On Branch 07/16/22 at 0000, ALEKSANDR ketorolac 2022- No 30mg 30 mg, Unive rs (TORADOL) 07-16 Slow IV ity of injection 04:30: 03:25 Push, [place] 30 mg 00 :00 ONCE, 1 Medical dose, On Branch Mon07/15/22 at 2330, Routine cefTRIAXone 2022- No 1000mg 1,000 mg, Univers (ROCEPHIN) 07-16 IV ity of 1,000 mg in 04:15: 05:04 Piggyback, [place] NaCl 0.9% 00 :00 ONCE, 1 Medical (NS) 100 mL dose, On Bran ch MINI-BAG Mon07/15/22 at 2315, Administer over 30 Minutes, 100 mL
Reas on for Anti-Infec tive: Documented Infection< br>Documen nusrat Infection Site: Urine<br&g t;Duration of Therapy: Other (see Comments) ondansetron 2022- No 4mg 4 mg, Slow Univers (ZOFRAN 07-16 IV Push, ity of (PF)) 04:15: 04:42 ONCE, 1 [place] injection 4 00 :00 dose, On Medi bridgette mg Mon07/15/22 Branch at 2315, ALEKSANDR ALPRAZolam Yes anxiety 2mg [id number] Take [address] [facility] (XANAX) 2 - [id number] by mouth 3 [facility] tablet 20:00: 3D (three) Medic al 17 times Center daily. citalopram Yes depression 40mg QD Take [address] [facility] [facility] (CELEXA) 40 - associated by mouth [facility] MG tablet 20:00: with daily. Medica l 17 bipolar Center disorder aspirin 81 Yes 81mg QD Take [address] MG chewable - by mouth [facility] tablet 20:00: daily. Medical 17 Center omeprazole Yes 40mg QD Take [address] (PRILOSEC) 9- by mouth [facility] 40 MG 20:00: daily. Medical capsule 17 [place] dextroamphe Yes 30mg Q.5D Take [address] [facility] tamine-amph -22 by mouth 2 Ebony kes etamine 30 20:00: (two) Medica l mg Tab 17 times Center daily. ALPRAZolam Yes anxiety 2mg Q.[id number] Take [address] [facility] (XANAX) 2 11-04 [id number] by mouth 3 [facility] MG tablet 20:00: 3D (three) Medic al 17 times Center daily. citalopram Yes depression 40mg QD Take [address] (CELEXA) 40 - associated by mouth [facility] MG tablet 20:00: with daily. Medica l 17 bipolar Center disorder aspirin 81 Yes 81mg QD Take [address] MG chewable 11-04 by mouth Luke [facility] tablet 20:00: daily. Medical [address] [place] [address] omeprazole Yes 40mg QD Take [address] (PRILOSEC) 11-04 by mouth [facility] 40 MG 20:00: daily. Medical [address] dextroamphe Yes 30mg Q.5D Take [address] tamine-amph 11-04 by mouth 2 Ebony kes etamine 30 20:00: (two) Medica l mg Tab 17 times Center daily. Vital Signs Vital Name Observation Time Observation Value Comments Source Heart rate 2022-08-01 03:42:00 88 /min [facility] Oxygen saturation in 2022-08-01 03:42:00 98 /min [facility] Arterial blood by [facility] Pulse oximetry Branch Systolic blood 2022-08-01 03:00:00 114 mm[Hg] [facility] Diastolic blood 2022-08-01 03:00:00 69 mm[Hg] [facility] Respiratory rate 2022-08-01 03:00:00 16 /min [facility] Body temperature 2022-08-01 01:41:00 37.22 [facility] Body height 2022-08-01 01:41:00 154.9 cm [facility] Body weight 2022-08-01 01:41:00 68.04 kg [facility] BMI 2022-08-01 01:41:00 28.34 kg/m2 [facility] Systolic blood 2022-07-17 12:41:00 118 mm[Hg] Univer sity [facility] Diastolic blood 2022-07-17 12:41:00 70 mm[Hg] Unive rsity of pressure [place] [facility] Heart rate 2022-07-17 12:41:00 85 /min [facility] [place] [facility] Body temperature 2022-07-17 12:41:00 36.56 [place] Univ ersity [facility] [place] [facility] Respiratory rate 2022-07-17 12:41:00 16 /min Univ ersity of [place] [facility] Oxygen saturation in 2022-07-17 12:41:00 98 /min University of Arterial blood by [place] [employer] bridgette Pulse oximetry Branch Body height 2022-07-16 10:32:00 154.9 cm [facility] [place] [facility] Body weight 2022-07-16 10:32:00 68.04 kg [facility] [place] [facility] BMI 2022-07-16 10:32:00 28.34 kg/m2 [facility] [place] [facility] Systolic blood 2022-07-16 15:30:00 103 mm[Hg] Univer sity of pressure [place] [facility] Diastolic blood 2022-07-16 15:30:00 63 mm[Hg] Unive rsity of pressure [place] [facility] Respiratory rate 2022-07-16 15:30:00 11 /min Univ ersity [facility] [place] [facility] Oxygen saturation in 2022-07-16 15:30:00 100 /min University of Arterial blood by [facility] Pulse oximetry Branch Heart rate 2022-07-16 15:12:00 79 /min [facility] [place] [facility] Body temperature 2022-07-16 15:12:00 36.22 [place] [facility] [place] [facility] Body height 2022-07-16 10:32:00 154.9 cm [facility] [place] [facility] Body weight 2022-07-16 10:32:00 68.04 kg [facility] [place] [facility] BMI 2022-07-16 10:32:00 28.34 kg/m2 [facility] [place] [facility] Systolic blood 2022-07-16 09:00:00 118 mm[Hg] Univer sity of pressure [place] [facility] Diastolic blood 2022-07-16 09:00:00 77 mm[Hg] Unive rsity of pressure [place] [facility] Heart rate 2022-07-16 09:00:00 98 /min [facility] [place] [facility] Body temperature 2022-07-16 09:00:00 37.78 [facility] Respiratory rate 2022-07-16 09:00:00 25 /min [facility] Oxygen saturation in 2022-07-16 09:00:00 95 /min [facility] Arterial blood by [facility] Pulse oximetry [place] Body height 2022-07-16 02:56:00 154.9 cm [facility] Body weight 2022-07-16 02:56:00 68.04 kg [facility] BMI 2022-07-16 02:56:00 28.34 kg/m2 [facility] Procedures Procedure Date / Time Performed Performing Clinician Sourc e ADC [facility] OR [facility] ONLY - 2022-08-01 03:52:00 Leonard Rosenthal [facility] WET PREP [facility] COMP. METABOLIC PANEL 2022-08-01 02:59:00 Leonard Rosenthal [facility] ([id number]) [facility] CT ABDOMEN PELVIS WO 2022-08-01 02:40:46 Leonard Rosenthal [facility] CONTRAST [facility] CBC WITH DIFF 2022-08-01 02:04:00 Singer [facility] URINALYSIS 2022-08-01 02:04:00 Rosenthal, [facility] CONSENT/REFUSAL FOR 2022-08-01 01:34:42 Doctor Unassigned, No Un [facility] DIAGNOSIS AND Name Medical Branch TREATMENT [place] TIME OR 2022-07-16 15:09:00 [facility] [place] TIME OR 2022-07-16 15:09[facility]00 [facility] ([facility] URINE CULTURE 2022-07-16 14:58:[address] [facility] INTUBATION 2022-07-16 14:40:00 Harley Dominguez [facility] CYSTOSCOPY WITH 2022-07-16 14:22:00 Miles Lynn [facility] INSERTION STENT URETER [facility] URINALYSIS 2022-07-16 06:12:[address] [facility] BASIC METABOLIC PANEL 2022-07-16 04:34:00 Nida Kiser [facility] ([facility], K, CL, CO2, Medical Branch GLUCOSE, BUN, CREATININE, CA) CBC WITH DIFF 2022-07-16 04:34:[address] [facility] CT ABDOMEN PELVIS WO 2022-07-16 04:28:26 Nida Kiser [facility] URINALYSIS 2022-07-16 03:21:[address] [facility] CONSENT/REFUSAL FOR 2022-07-16 02:49:22 Doctor Unassigned, No [facility] DIAGNOSIS AND Name [facility] Branch TREATMENT NOTICE OF PRIVACY 2022-07-16 02:48:43 Doctor Unassigned, No Univ [facility] PRACTICES Name [facility] Encounters Start End Encounter Admission Attending Care Care Encounter Source Date/Time Date/Time Type Type Clinicians Facility Department ID 2022-08-08 2022-08-08 Telephone [place] [facility] [id number] Univers 00:00:00 00:00:00 Ash AMRIT 350.1.13.10 i [place] [facility] [id number] Wi dical FORMERLY [facility] [address] BU[address]ING 2022-07-31 2022-08-01 Emergency X [facility] ERT [id number] Univers 20:42:00 00:44:00 LEONARD tanner [facility] 2022-07-31 2022-08-01 Emergency Singer [facility] [id number] Univers 20:42:00 00:44:00 Leonard MARCUS 350.1.13.10 [place] [id number] [facility] 084 Branch 2022-07-19 2022-07-19 Transition RUBY Real [id number] Univers 00:00:00 00:00:00 of Care Taylor SUERO 350.1.13.10 [place] [id number] [facility] 403 Branch 2022-07-16 2022-07-17 Emergency RADHA Lynn [id number] Univers 05:38:00 14:43:00 Miles NAHID 350.1.13.10 i ty of [facility] 4.2.7.2.686 Ronny as [phone] [facility] 091 Branch 2022-07-16 2022-07-16 Surgery RADHA Lynn [id number] Univers 09:40:00 10:38:00 Miles WHITFIELD 350.1.13.10 i ty of [facility] 4.2.7.2.686 Ronny as [id number] [facility] 103 Branch 2022-07-16 2022-07-16 Anesthesia Steve Martinez RADHA 1.2.8 40.114 [id number] Univers 09:33:00 10:13:00 Event HalleRaúl NAHID 350.1.13.10 ity of [facility] 4.2.7.2.686 Ronny as [id number] [facility] 103 Branch 2022-07-15 2022-07-16 Emergency [facility] [id number] Univers 21:50:00 04:18:00 Nida MARCUS 350.1.13.10 ity [facility] 4.2.7.2.686 [place] [facility] [id number] [facility] 084 Branch 2022-07-15 2022-07-16 Emergency X [facility] ERT [id number] Univers 21:50:00 04:18:00 [facility] 2022-07-15 2022-07-16 Emergency X [facility] ERT [id number] Univers 21:50:00 04:18:00 [facility] 2020-01-01 Outpatient [facility] [id number] [place] 02:21:00 02:21:00 [facility] 2020-01-01 2020-01-01 Outpatient [facility] [id number] [place] 02:21:00 02:21:00 [facility] Results Test Description Test Time Test Comments Results Result Comments Source CBC WITH DIFF 2022-08-01 02:32:29 Test Item Value Reference Range Interpretation Comme nts WBC (test code = 6690-2) 9.96 See_Comment [A utomated message] The system which [employer] nerated this result transmit nusrat reference range: 4.30 - 1 1.10 10*3/?L. The reference r dorothy was not used to interpr et this result as normal/abnor mal. RBC (test code = 789-8) 4.21 See_Comment [Au tomated message] The system which [employer] nerated this result transmit nusrat reference range: 3.93 - 5 .25 10*6/?L. The reference r dorothy was not used to interpr et this result as normal/abnor mal. HGB (test code = 718-7) 12.8 g/dL 11.6-15.0 HCT (test code = 4544-3) 37.2 % 35.7-45.2 MCV (test code = 787-2) 88.4 fL 80.6-95.5 MCH (test code = 785-6) 30.4 pg 25.9-32.8 MCHC (test code = 786-4) 34.4 g/dL 31.6-35.1 RDW-SD (test code = 61843-0) 42.4 fL 39.0-49.9 RDW-CV (test code = 788-0) 13.2 % 12.0-15.5 PLT (test code = 777-3) 283 See_Comment [Au tomated message] The system which [employer] nerated this result transmit nusrat reference range: 166 - 35 8 10*3/?L. The reference range was not used to interpret th is result as normal/abnormal . MPV (test code = 85423-9) 11.3 fL 9.5-12.9 NRBC/100 WBC (test code = 0.0 See_Comment [ Automated message] The 0425795830) system which [employer] nerated this result transmit nusrat reference range: 0.0 - 10 .0 /100 WBCs. The reference r dorothy was not used to interpr et this result as normal/abnor mal. NRBC x10^3 (test code = See_Comment [Au tomated message] The 8252679568) system which ge nerated this result transmit nusrat reference range: 10*3/?L. The reference range was not u sed to interpret this result as normal/abnormal . GRAN MAT (NEUT) % (test code 53.7 % = 770-8) IMM GRAN % (test code = 0.30 % 2838418558) LYMPH % (test code = 736-9) 35.1 % MONO % (test code = 5905-5) 5.8 % EOS % (test code = 713-8) 4.0 % BASO % (test code = 706-2) 1.1 % GRAN MAT x10^3(ANC) (test 5.34 10*3/uL 1.88-7.09 code = 5890877983) IMM GRAN x10^3 (test code = 0.03 10*3/uL 0.00-0.06 4325659750) LYMPH x10^3 (test code = 3.50 10*3/uL 1.32-3.29 H 731-0) MONO x10^3 (test code = 0.58 10*3/uL 0.33-0.92 742-7) EOS x10^3 (test code = 0.40 10*3/uL 0.03-0.39 H 711-2) BASO x10^3 (test code = 0.11 10*3/uL 0.01-0.07 H 704-7) Lab Interpretation (test Abnormal code = 77140-7) [facility] METABOLIC PANEL (NA, K, CL, CO2, GLUCOSE, BUN, CREATININE, CA)2022-07-16 05:01:11 Test Item Value Reference Range Interpretation Comments NA (test code = 137 mmol/L 135-145 2262921667) K (test code = 3.8 mmol/L 3.5-5.0 5484053128) CL (test code = 102 mmol/L 98-108 4179246396) CO2 TOTAL (test code 26 mmol/L 23-31 = 6635001317) AGAP (test code = 9 2-16 5402430514) BUN (test code = 14 mg/dL 7-23 2460724347) GLUCOSE (test code = 71 mg/dL 70-110 2870739982) CREATININE (test code 0.91 mg/dL 0.50-1.04 = 3860314356) CALCIUM (test code = 9.2 mg/dL 8.6-10.6 7072979906) eGFR (test code = 65.4 mL/min/1.73m2 1348643736) LENO (test code = LENO) Association of Glomerular Filtration Rate (GFR) and Staging of Kidney Disease* + + +- +| GFR (mL/min/1.73 m2) ?| With Kidney Damage ?| ?Without Kidney Damage+ ------+ ----+ ------+| ?>90 ?| ?Stage one ?| ? Normal ?+ -+ + -+| ?60-89 ?| ?Stage two ?| ? Decreased GFR ? + + +- +| ?30-59 ?| ?Stage three ?| ? Stage three ? + + +- +| ?15-29 ?| ?Stage four ? | ? Stage four ?+ -+ + -+| ?<15 (or dialysis) ? ?| ?Stage five ? | ? Stage five ?+ -+ + -+ *Each stage assumes the associated GFR level has been in effect for at least three months. ?Stages 1 to 5, with or without kidney disease, indicate chronic kidney disease. Notes: Determination of stages one and two (with eGFR >59mL/min/1.73 m2) requires estimation of kidney damage for at least three months as defined by structural or functional abnormalities of the kidney, manifested by either:Pathological abnormalities or Markers of kidney damage (including abnormalities in the composition of the blood or urine or abnormalities in imaging tests). [facility] WITH [id number] 04:48:31 Test Item Value Reference Range Interpretation Comments WBC (test code = 13.85 See_Comment H [Automated 0971-2) message] The system which generated this result transmit nusrat reference range : 4.30 - 11.10 10*3/?L. The reference range was not used to interpret this result as normal/abnormal . RBC (test code = 4.66 See_Comment [Automated 779-8) message] The system which generated this result transmit nusrat reference range : 3.93 - 5.25 10*6/?L. The reference range was not used to interpret this result as normal/abnormal . HGB (test code = 14.0 g/dL 11.6-15.0 718-7) HCT (test code = 40.9 % 35.7-45.2 4544-3) MCV (test code = 87.8 fL 80.6-95.5 787-2) MCH (test code = 30.0 pg 25.9-32.8 785-6) MCHC (test code = 34.2 g/dL 31.6-35.1 786-4) RDW-SD (test code = 40.4 fL 39.0-49.9 10343-8) RDW-CV (test code = 12.8 % 12.0-15.5 788-0) PLT (test code = 234 See_Comment [Automated 777-3) message] The system which generated this result transmit nusrat reference range : 166 - 358 10*3/ ?L. The reference range was not u sed to interpret th is result as normal/abnormal . MPV (test code = 11.2 fL 9.5-12.9 46404-3) NRBC/100 WBC (test 0.0 See_Comment [Automat ed code = 3462348626) message] The system which generated this result transmit nusrat reference range : 0.0 - 10.0 /100 WBCs. The reference range was not used to interpret this result as normal/abnormal . NRBC x10^3 (test code See_Comment [Auto mated = 5961637788) message] The system which generated this result transmit nusrat reference range : 10*3/?L. The reference range was not used to interpret this result as normal/abnormal . GRAN MAT (NEUT) % 84.4 % (test code = 770-8) IMM GRAN % (test code 0.60 % = 7124732342) LYMPH % (test code = 8.9 % 736-9) MONO % (test code = 4.8 % 5905-5) EOS % (test code = 0.9 % 713-8) BASO % (test code = 0.4 % 706-2) GRAN MAT x10^3(ANC) 11.67 10*3/uL 1.88-7.09 H (test code = 9857233291) IMM GRAN x10^3 (test 0.09 10*3/uL 0.00-0.06 H code = 3252540842) LYMPH x10^3 (test code 1.23 10*3/uL 1.32-3.29 L = 731-0) MONO x10^3 (test code 0.67 10*3/uL 0.33-0.92 = 742-7) EOS x10^3 (test code = 0.13 10*3/uL 0.03-0.39 711-2) BASO x10^3 (test code 0.06 10*3/uL 0.01-0.07 = 704-7) Lab Interpretation Abnormal (test code = 88869-4) [facility] [id number] 15:02:00Surgical Pathology Report Case: [id number] Authorizing Provider: Sergio García MD Collected: 11/03/2017 1909 Ordering Location: [facility] Received: 11/05/2017 1229 SERVICES Pathologist: Lauryn Tejeda MD Specimen: Gallbladder, gall bladder GALLBLADDER, CHOLECYSTECTOMY: - ACUTE AND CHRONIC CHOLECYSTITIS - CHOLELITHIASIS - ONE BENIGN REACTIVE LYMPH NODE (0/1) Signing Pathologist Direct Phone Line: [phone] signed by Lauryn Tejeda MD on 11/07/2017 at 3:02 [id number] Received fresh labeled "gallbladder" is an 8.0 x 3.5 x 2.5 cm intact, distended gallbladder. The serosal surface is puprle-evans and exhibits cautery artifact on the hepatic surface. The lumen contains yellow-green to red mucoid bile and a 0.5 cm in greatest dimension yellow-evans irregular calculus. The mucosal surface is yellow- green to red, velvety and glistening. The wall measures up to 0.2 cm in maximum thickness. Section code: A1, parallel cystic duct resection margin and one bisected cystic duct lymph node; A2, statement services representative section of gallbladder. DB/pl Performed.HEPATIC FUNCTION [id number] 07:03:00 Test Item Value Reference Range Interpretation Comments TOTAL PROTEIN (BEAKER) (test code = 6.4 gm/dL 6.0-8.3 770) ALBUMIN (BEAKER) (test code = 1145) 3.3 g/dL 3.5-5.0 L BILIRUBIN TOTAL (BEAKER) (test code 0.4 mg/dL 0.2-1.2 = 377) BILIRUBIN DIRECT (BEAKER) (test 0.2 mg/dL 0.1-0.5 code = 706) ALKALINE PHOSPHATASE (BEAKER) (test 57 U/L 40-150 code = 346) AST (SGOT) (BEAKER) (test code = 80 U/L 5-34 H 353) ALT (SGPT) (BEAKER) (test code = 65 U/L 6-55 H 347) BASIC METABOLIC [id number] 07:03:00 Test Item Value Reference Range Interpretation [...] PATIEN TS. CBC W/PLT COUNT & AUTO [id number] 04:20:00 Test Item Value Reference Range Interpretation [...] PERCENT (BEAKER) (test code = 2801) [place], [id number] 07:54:00Reason for exam:->ERCP for biliary stent removal FLUOROSCOPIC UNIT UTILIZED-NO INTERPRETATION REQUESTED. HEPATIC FUNCTION PANEL 2017-11-03 06:33:00 Test Item Value [...] = 38 U/L 6-55 347) BASIC METABOLIC [id number] 06:33:00 Test Item Value Reference Range Interpretation [...] PATIEN TS. CBC W/PLT COUNT & AUTO [id number] 05:29:00 Test Item Value Reference Range Interpretation [...] 0-1 PERCENT (BEAKER) (test code = 2801) [id number] 07:20:00 Test Item Value Reference Range Interpretation Comments LIPASE (BEAKER) (test code = 749) 67 U/L 8-78 BASIC METABOLIC [id number] 07:20:00 Test Item Value Reference Range Interpretation [...] APPLICABLE FOR DIALYSIS PATIEN TS. HEPATIC FUNCTION [id number] 07:20:00 Test Item Value Reference Range Interpretation [...] code = 32 U/L 6-55 347) PROTHROMBIN [id number] 06:57:00 Test Item Value Reference Range Interpretation Comments PROTIME (BEAKER) (test code = 14.6 seconds 11.7-14.7 759) INR (BEAKER) (test code = 370) 1.1 <=5.9 RECOMMENDED COUMADIN/WARFARIN INR THERAPY RANGESSTANDARD DOSE: 2.0 - 3.0 Includes: PROPHYLAXIS for venous thrombosis, systemic embolization; TREATMENT for venous thrombosis and/or pulmonary embolus.HIGH RISK: Target INR is 2.5-3.5 for patients with mechanical heart valves.CBC W/PLT COUNT & AUTO [id number] 06:49:00 Test Item Value Reference Range Interpretation [...] 0-1 PERCENT (BEAKER) (test code = 2801) Notes Date/Time Note Provider Source 2017-11-03 22:40:00-00:[address] [facility] REPORT OF PROCEDURE ELIZABETH MONTELONGO FACILITY: [facility] BILLING #: [id number] ROOM: [facility] [id number] MR #: [id number] : 1970 DATE OF PROCEDURE: 11/03/2017 SURGEON: Sergio García MD RANCH HELPER: Cheyanne Brandon MD PREOPERATIVE DIAGNOSES: Symptomatic cholelithias is and choledocholithiasis. POSTOPERATIVE DIAGNOSES: Symptomatic cholelithia sis and choledocholithiasis. PROCEDURE: Laparoscopic cholecystectomy. ESTIMATED BLOOD LOSS: Minimal. SPECIMEN: Gallbladder sent for histopathology. INDICATIONS: This is a 47-year-old female who pr esented with abdominal pain and obstructive jaundice, investigation of which revealed choledocholithiasis and cholelithiasis. She underwent an ERCP and ex traction of common bile duct stones; therefore, she was brought in today for elective laparoscopic cholecystectomy. PROCEDURE IN DETAIL: After induction of general anesthesia, the patient's abdomen was prepped with ChloraPrep and draped i n sterile fashion. Supraumbilical incision was made using the scalp el and extended through the layers of the abdomen with the electrocautery. U anne entering peritoneal cavity, Radha cannula introduced into the abdom en, which was then insufflated with CO2 up to 15 mmHg pressure. The n, a 10-mm port was introduced into the subxiphoid area with two 5-m m ports along the right subcostal margin. Gallbladder was grabbed throug h the fundus and retracted in cephalad direction. The infundibulum of the g allbladder retracted inferiorly. The peritoneum covering the Calot tr iangle incised and the cystic duct identified at the junction with infu ndibulum and ligated twice distally and once proximally and divided. The cy stic artery identified medial to the duct and ligated twice proximally and once distally and divided. The gallbladder excised from the gallbl adder fossa using electrocautery. The gallbladder was then retriev ed using the EndoCatch through the subxiphoid incision. Hemostasis of t he gallbladder fossa achieved using the electrocautery and reinforced with FloSeal. Abdomen was irrigated with warm saline antibiotic solution. Ports were then removed under direct vision and abdomen deflated from CO 2. The supraumbilical incision and fascia closed us ing #0 Vicryl stitches in interrupted fashion and skin of the 4 incisions closed using 4-0 Monocryl in a subcuticular fashion. The patient tolerated th e procedure and went to the recovery in stable condition. OB/rty P P Job#: [id number] Doc#: [id number] FN: [id number] cc: Sergio García MD
[2022-08-18 09:07] LABS: Absolute Lymphocytes (CBC) 1.6 K/uL (0.7-4.9); Hematocrit 38.8 % (36.0-45.0); Lymphocytes % 16.1 % (15.3-44.8); MCV 87.1 fL (80-100); MPV 8.4 fL (7.6-11.3); RBC Red Blood Cell Count 4.45 M/uL (3.86-4.86)
[2022-08-18] MEDS ORDERED: NA CHLORIDE 0.9% 1,000 ML ONE (09:09)
[2022-08-18] MEDS ORDERED: ONDANSETRON 4 MG/2 ML VIAL ONE (09:09)
[2022-08-18] MEDS ORDERED: MORPHINE 4 MG/ML SYR ONE (09:09)
[2022-08-18] MEDS ORDERED: CEFTRIAXONE 1000 MG/VIAL ONE (09:09)
--- NOTE | 2022-08-18 09:10 | RAD REPORT ---
EXAM DESCRIPTION: CT - Stone Protocol - 08/18/2022 8:58 am CLINICAL HISTORY: Flank pain. ABD PAIN COMPARISON: Abdomen Pelvis W Contrast dated 10/15/2021 TECHNIQUE: Axial images were obtained without oral or IV contrast. Lack of contrast limits solid org an and vascular assessment. The oijno-cb-lrdg spans the entirety of the system partially obscuring uppermost abdomen and lung bases. Coronal reformatted images were obtained and reviewed. All CT scans are performed using dose optimization technique as appropriate and may include automated exposure control or mA/KV adjustment according to patient size. FINDINGS: The lower lung vicente are clear. Cholecystectomy clips. Imaged portions of the liver and spleen show no suspicious findings on non-contrast imaging. The panc reas and adrenal glands are normal. No pathologic lymphadenopathy in the abdomen or pelvis. Left double-J stent is in place. There is mild left hydronephrosis. 6 mm stone is present proximal le ft ureter along the course of the stent. Proximal and distal aspects of the stent are in appropriate position. Small punctate calculi right kidney without hydronephrosis. No bowel obstruction, free air, free fluid or abscess. Normal appendix noted.7 cm cystic structure in the left pelvis is of unclear etiology may be ovarian/parovarian cyst. A was not present on the prio r study from 2021. No significant bony abnormality. IMPRESSION: Left double-J stent is in appropriate position. There is 6 mm stone along the course of the stent proximal left ureter. Mild left hydronephrosis. Punctate calculus right kidney without hydronephrosis 7 cm cystic structure left hemipelvis may be ovarian or parovarian cyst. Pelvic ultrasound followup could be performed for further evaluation.
[2022-08-18 09:22] LABS: Calcium Oxalate Crystals- Ur Many /HPF (None Seen); Specific Gravity 1.011 (1.005-1.030); Urine Bacteria 20-50 /HPF (<20); Urine Bilirubin NEGATIVE (Negative); Urine Blood 3+ (OVER) (Negative); Urine Clarity Extremely Turbid (Clear); Urine Color Orange (Yellow); Urine Glucose NEGATIVE (Negative); Urine Mucus 2+ /HPF (None Seen); Urine Protein 3+ (Negative); Urine RBC >50 /HPF (None Seen); Urine Urobilinogen Normal (Normal); Urine WBC Clump Many /HPF (None Seen); Urine pH 6.5 (5.0-7.0)
[2022-08-18 09:53] LABS: Albumin 2.7 g/dL (3.4-5.0); Bilirubin Total 0.3 mg/dL (0.2-1.0); Potassium 2.9 mEq/L (3.5-5.1)
--- NOTE | 2022-08-18 10:01 | RAD REPORT ---
EXAM DESCRIPTION: RAD - Abdomen 1 View (KUB) - 08/18/2022 9:41 am CLINICAL HISTORY: ABD PAIN Pain COMPARISON: No comparisons FINDINGS: The bowel gas pattern is non-obstructive. No evidence of free air or pneumatosis. Left veronica ble-J stent is in place. 5 mm calculus is seen proximal aspect of the stent to the left of the L3-4 l evel. No significant bony findings. Cholecystectomy clips. IMPRESSION: Left double-J stent is in place. 5 mm stone is seen proximal aspect of the stent.
[2022-08-18] MEDS ORDERED: Levofloxacin500mg IV 500 MG/100 ML BAG IV ONE (10:13)
--- NOTE | 2022-08-18 10:28 | EDPHYS ---
Physician Documentation [facility] Name: Nany Mary Age: 52 yrs Sex: Female : 1970 Arrival Date: 08/18/2022 Time: 08:27 Bed 5 Private MD: ED Physician Vickey Kelly HPI: 08/18 09:16 This 52 yrs old Female presents to ER via Ambulatory with complaints of Flank jasmin Pain, Urinary Problem - blood. 09:16 The patient complains of pain in the left low back and left mid back. The pain does not jasmin radiate. Onset: The symptoms/episode began/occurred 14 day(s) ago. Modifying factors: The symptoms are alleviated by nothing. the symptoms are aggravated by nothing. Associated signs and symptoms: The patient has no apparent associated signs or symptoms. Severity of pain: At its worst the pain was moderate in the emergency department the pain is unchanged. The patient has not experienced similar symptoms in the past. Historical: - Allergies: 09:12 PENICILLINS; ko1 - PMHx: 09:12 ADD/ADHD; Chronic Pancreatitis; Depression; HEP C; left leg DVT; liver and pancrease ko1 laceration when she was 10; - Immunization history:: Adult Immunizations unknown. - Social history:: Smoking status: Patient reports the use of cigarette tobacco products, smokes one pack cigarettes per day. ROS: 09:17 Constitutional: Negative for fever, chills, and weight loss, Eyes: Negative for injury, jasmin pain, redness, and discharge, ENT: Negative for injury, pain, and discharge, Neck: Negative for injury, pain, and swelling, Cardiovascular: Negative for chest pain, palpitations, and edema, Respiratory: Negative for shortness of breath, cough, wheezing, and pleuritic chest pain, Abdomen/GI: Negative for abdominal pain, nausea, vomiting, diarrhea, and constipation, : Negative for injury, bleeding, discharge, and swelling, MS/Extremity: Negative for injury and deformity, Skin: Negative for injury, rash, and discoloration, Neuro: Negative for headache, weakness, numbness, tingling, and seizure, Psych: Negative for depression, anxiety, suicide ideation, homicidal ideation, and hallucinations, Allergy/Immunology: Negative for hives, rash, and allergies, Endocrine: Negative for neck swelling, polydipsia, polyuria, polyphagia, and marked weight changes, Hematologic/Lymphatic: Negative for swollen nodes, abnormal bleeding, and unusual bruising. 09:17 Back: Positive for pain with movement, flank pain, of the left low back and left mid back. Exam: 09:22 Constitutional: This is a well developed, well nourished patient who is awake, alert, jasmin and in no acute distress. Head/Face: Normocephalic, atraumatic. Eyes: Pupils equal round and reactive to light, extra-ocular motions intact. Lids and lashes normal. Conjunctiva and sclera are non-icteric and not injected. Cornea within normal limits. Periorbital areas with no swelling, redness, or edema. ENT: Nares patent. No nasal discharge, no septal abnormalities noted. Tympanic membranes are normal and external auditory canals are clear. Oropharynx with no redness, swelling, or masses, exudates, or evidence of obstruction, uvula midline. Mucous membranes moist. Neck: Trachea midline, no thyromegaly or masses palpated, and no cervical lymphadenopathy. Supple, full range of motion without nuchal rigidity, or vertebral point tenderness. No Meningismus. Chest/axilla: Normal chest wall appearance and motion. Nontender with no deformity. No lesions are appreciated. Cardiovascular: Regular rate and rhythm with a normal S1 and S2. No gallops, murmurs, or rubs. Normal PMI, no JVD. No pulse deficits. Respiratory: Lungs have equal breath sounds bilaterally, clear to auscultation and percussion. No rales, rhonchi or wheezes noted. No increased work of breathing, no retractions or nasal flaring. Abdomen/GI: Soft, non-tender, with normal bowel sounds. No distension or tympany. No guarding or rebound. No evidence of tenderness throughout. Female : Normal external genitalia. Skin: Warm, dry with normal turgor. Normal color with no rashes, no lesions, and no evidence of cellulitis. MS/ Extremity: Pulses equal, no cyanosis. Neurovascular intact. Full, normal range of motion. Neuro: Awake and alert, GCS 15, oriented to person, place, time, and situation. Cranial nerves II-XII grossly intact. Motor strength 5/5 in all extremities. Sensory grossly intact. Cerebellar exam normal. Normal gait. Psych: Awake, alert, with orientation to person, place and time. Behavior, mood, and affect are within normal limits. 09:22 Back: pain, that is mild, of the left mid back, ROM is normal, normal spinal alignment noted, CVA tenderness, that is mild, is noted on the left, vertebral tenderness, is not appreciated, muscle spasm, is not present. Vital Signs: 08:45 BP 109 / 76; Pulse 97; Resp 18; Temp 98.9(O); Pulse Ox 99% on R/A; Weight 68.04 kg; ko1 Height 5 ft. 1 in. ; Pain 8/10; 09:19 BP 104 / 68; Pulse 76; Resp 16; Pulse Ox 98% on R/A; ko1 10:14 BP 101 / 88; Pulse 75; Resp 18; Pulse Ox 99% ; ko1 08:45 Body Mass Index 28.34 (68.04 kg, 154.94 cm) ko1 08:45 Pain Scale: Adult ko1 MDM: 08:29 Patient medically screened. [facility] 09:23 Differential diagnosis: nephrolithiasis, pyelonephritis, UTI, chronic back pain, jasmin Hydronephrosis Pyelonephritis Renal Infarction ruptured disc. Data reviewed: vital signs, nurses notes, lab test result(s), radiologic studies, CT scan. Consideration of Admission/Observation Escalation of care including admission/observation considered. I considered the following discharge prescriptions or medication management in the emergency department Medications were administered in the Emergency Department. See MAR. Test considered but Not performed: Ultrasound no renal usg. Care significantly affected by the following chronic conditions: Hypertension, add/adha, chronic pancrteatitis, hep c, dvt. Counseling: I had a detailed discussion with the patient and/or guardian regarding: the historical points, exam findings, and any diagnostic results supporting the discharge/admit diagnosis, lab results, radiology results. 08/18 08:41 Order name: Urinalysis w/ reflexes; Complete Time: 09:40 ko1 08/18 08:51 Order name: CBC with Diff; Complete Time: 09:40 jasmin 08/18 08:51 Order name: CMP; Complete Time: 10:25 jasmin 08/18 08:51 Order name: Lipase; Complete Time: 10:25 [facility] 08/18 08:51 Order name: CT Stone Protocol; Complete Time: 09:40 jasmin 07/06 08:51 Order name: Abdomen 1 View (KUB) XRAY; Complete Time: 10:25 jasmin 08/18 08:51 Order name: IV Saline Lock; Complete Time: 08:58 jasmin 08/18 08:51 Order name: Labs collected and sent; Complete Time: 08:58 [facility] 08/18 09:11 Order name: Labs - recollect needed: green top please; Complete Time: 09:21 em1 08/18 10:26 Order name: PO challenge: gatorade; Complete Time: 10:30 jasmin Administered Medications: 09:01 Drug: NS 0.9% IV 1000 ml Route: IV; Rate: 1 bolus; Site: right antecubital; ko1 09:01 Drug: Ondansetron IVP 4 mg Route: IVP; Site: right antecubital; ko1 09:47 Follow up: Response: No adverse reaction ko1 09:48 Follow up: Response: No adverse reaction ko1 09:09 Drug: morphine IVP or IV 4 mg Route: IVP; Infused Over: 4 mins; Site: right antecubital;ko1 09:48 Follow up: Response: No adverse reaction; Pain is decreased ko1 09:17 Drug: Rocephin IV 1 grams Route: IV; Rate: per protocol; Site: right antecubital; ko1 09:47 Follow up: Response: No adverse reaction; IV Status: Completed infusion ko1 10:07 Drug: levofloxacin IVPB 500 mg Volume: 100 ml; Route: IVPB; Infused Over: 60 mins; ko1 Site: right antecubital; 10:34 Drug: Potassium PO Effervescent Tablet 50 mEq Route: PO; ko1 Disposition Summary: 08/18/22 10:28 Discharge Ordered Location: Home jasmin Problem: new jasmin Symptoms: have improved jasmin Condition: Stable jasmin Diagnosis - Hydronephrosis with renal and ureteral calculous obstruction - 6 mm left proximal , jasmin double J stent in proper position - Hypokalemia jasmin - UTI/ Urinary tract infection, site not specified jasmin Followup: jasmin - With: Private Physician - When: 2 - 3 days - Reason: Recheck today's complaints, Continuance of care, Re-evaluation by your physician Followup: jasmin - With: Omero Castellanos MD - When: 2 - 3 days - Reason: Recheck today's complaints, Continuance of care, Re-evaluation by your physician Discharge Instructions: - Discharge Summary Sheet jasmin - Potassium Content of Foods jasmin - Kidney Stones jasmin - Urinary Tract Infection, Adult jasmin - Kidney Stones, [id number] jasmin - Urinary Tract Infection, Adult, [id number]-[id number] jasmin - Hydronephrosis jasmin - Dietary Guidelines to Help Prevent Kidney Stones jasmin - Hypokalemia jasmin Forms: - Medication Reconciliation Form jasmin - Thank You Letter jasmin - Antibiotic Education jasmin - Prescription Opioid Use jasmin - [email or web address] [facility] Prescriptions: - acetaminophen-codeine 300-30 mg Oral tablet - take 2 tablet by ORAL route every 6 hours as needed for pain; 20 tablet; jasmin Refills: 0, Product Selection Permitted - Zofran 4 mg Oral Tablet - take 1 tablet by ORAL route every 12 hours As needed; 20 tablet; Refills: 0, [facility] Product Selection Permitted - levofloxacin 250 mg Oral Tablet - take 1 tablet by ORAL route once daily; 7 tablet; Refills: 0, Product Selection jasmin Permitted Signatures: Dispatcher [employer] Vickey Ruano MD MD cha Martinez, Eric [facility] Sarah Puente, CARIDAD RN ko1 Corrections: (The following items were deleted from the chart) 09:14 09:12 Allergies: Morphine; ko1 ko1 09:14 09:12 Allergies: tramadol; ko1 ko1 09:51 09:42 Whelan ordered. jasmin castellanos
--- NOTE | 2022-08-18 10:28 | ER ---
Nurse's Notes [facility] Name: Nany Mary Age: 52 yrs Sex: Female : 1970 Arrival Date: 08/18/2022 Time: 08:27 Bed 5 Private MD: Diagnosis: Hydronephrosis with renal and ureteral calculous obstruction-6 mm left proximal , double J stent in proper position;Hypokalemia;UTI/ Urinary tract infection, site not specified Presentation: 08/18 08:45 Chief complaint: Patient states: left sided flank pain, pain when urinating. ko1 Coronavirus screen: At this time, the client does not indicate any symptoms associated with coronavirus-19. Ebola Screen: No symptoms or risks identified at this time. Initial Sepsis Screen: Does the patient meet any 2 criteria? No. Patient's initial sepsis screen is negative. Does the patient have a suspected source of infection? Yes: Dysuria/Frequency/Urgency/UTI. Risk Assessment: Do you want to hurt yourself or someone else? Patient reports no desire to harm self or others. Onset of symptoms is unknown. 08:45 Method Of Arrival: Ambulatory ko1 08:45 Acuity: ANTHONY 3 ko1 Triage Assessment: 09:12 General: Appears distressed, uncomfortable, Behavior is calm, cooperative, appropriate ko1 for age. Pain: Complains of pain in left low back. Historical: - Allergies: 09:12 PENICILLINS; ko1 - PMHx: 09:12 ADD/ADHD; Chronic Pancreatitis; Depression; HEP C; left leg DVT; liver and pancrease ko1 laceration when she was 10; - Immunization history:: Adult Immunizations unknown. - Social history:: Smoking status: Patient reports the use of cigarette tobacco products, smokes one pack cigarettes per day. Screenin:45 [facility] ED Fall Risk Assessment (Adult) History of falling in the last 3 months, ko1 including since admission No falls in past 3 months (0 pts) Confusion or Disorientation No (0 pts) Intoxicated or Sedated No (0 pts) Impaired Gait No (0 pts) Mobility Assist Device Used No (0 pt) Altered Elimination No (0 pt) Score/Fall Risk Level 0 - 2 = Low Risk Oriented to surroundings, Maintained a safe environment, Educated pt \T\ family on fall prevention, incl call for assistance when getting out of bed, Assessed \T\ reinforced patient's understanding of fall precautions, Provided non-skid footwear, Hourly rounding (assess needs \T\ fall precautionary measures) done, Used ambulatory aids as needed (educated on \T\ assisted with), Used gait belt as appropriate. Abuse screen: Denies threats or abuse. Denies injuries from another. Nutritional screening: No deficits noted. Tuberculosis screening: No symptoms or risk factors identified. Assessment: 08:45 Neuro: No deficits noted. Cardiovascular: No deficits noted. Respiratory: No deficits ko1 noted. GI: No deficits noted. : Reports burning with urination, pain in left flank(s), in lower back with urination. EENT: No deficits noted. Derm: No deficits noted. Musculoskeletal: No deficits noted. Vital Signs: 08:45 BP 109 / 76; Pulse 97; Resp 18; Temp 98.9(O); Pulse Ox 99% on R/A; Weight 68.04 kg; ko1 Height 5 ft. 1 in. ; Pain 8/10; 09:19 BP 104 / 68; Pulse 76; Resp 16; Pulse Ox 98% on R/A; ko1 10:14 BP 101 / 88; Pulse 75; Resp 18; Pulse Ox 99% ; ko1 08:45 Body Mass Index 28.34 (68.04 kg, 154.94 cm) ko1 08:45 Pain Scale: Adult ko1 ED Course: 08:28 Patient arrived in ED. am2 08:29 Vickey Kelly MD is Attending Physician. [facility] 08:32 Sarah Puente, RN is Primary Nurse. ko1 08:45 Inserted saline lock: 22 gauge in right antecubital area, using aseptic technique. ko1 Blood collected. 08:45 Arm band placed on right wrist. Patient placed in an exam room, on a stretcher, on ko1 pulse oximetry, Patient notified of wait time. 08:45 Patient has correct armband on for positive identification. Bed in low position. Call ko1 light in reach. Side rails up X 1. Pulse ox on. NIBP on. 08:58 CBC with Diff Sent. ko1 08:58 CMP Sent. ko1 08:58 Lipase Sent. ko1 08:58 Urinalysis w/ reflexes Sent. ko1 08:59 CT Stone Protocol In Process Unspecified. EDMS 09:12 Triage completed. ko1 09:21 Lab(s) recollected, by me, sent to lab. aw1 09:43 Abdomen 1 View (KUB) XRAY In Process Unspecified. EDMS 10:27 Omero Castellanos MD is Referral Physician. [facility] 10:39 No provider procedures requiring assistance completed. IV discontinued, intact, ko1 bleeding controlled, No redness/swelling at site. Pressure dressing applied. Administered Medications: 09:01 Drug: NS 0.9% IV 1000 ml Route: IV; Rate: 1 bolus; Site: right antecubital; ko1 09:01 Drug: Ondansetron IVP 4 mg Route: IVP; Site: right antecubital; ko1 09:47 Follow up: Response: No adverse reaction ko1 09:48 Follow up: Response: No adverse reaction ko1 09:09 Drug: morphine IVP or IV 4 mg Route: IVP; Infused Over: 4 mins; Site: right antecubital;ko1 09:48 Follow up: Response: No adverse reaction; Pain is decreased ko1 09:17 Drug: Rocephin IV 1 grams Route: IV; Rate: per protocol; Site: right antecubital; ko1 09:47 Follow up: Response: No adverse reaction; IV Status: Completed infusion ko1 10:07 Drug: levofloxacin IVPB 500 mg Volume: 100 ml; Route: IVPB; Infused Over: 60 mins; ko1 Site: right antecubital; 10:34 Drug: Potassium PO Effervescent Tablet 50 mEq Route: PO; ko1 Medication: 10:39 VIS not applicable for this client. ko1 Outcome: 10:28 Discharge ordered by . jasmin 10:39 Discharged to home ambulatory, with family. ko1 10:39 Condition: improved 10:39 Discharge instructions given to patient, family, Instructed on discharge instructions, follow up and referral plans. medication usage, Demonstrated understanding of instructions, follow-up care, medications, Prescriptions given X 3. 10:44 Patient left the ED. ko1 Signatures: Dispatcher [employer] EDVickey Ritter MD MD cha Moreno, Amanda am2 Sarah Puente, RN RN ko1 Katherin Ardon aw1 Corrections: (The following items were deleted from the chart) 09:14 09:12 Allergies: Morphine; ko1 ko1 09:14 09:12 Allergies: tramadol; ko1 ko1
[2022-08-18] MEDS ORDERED: POTASSIUM 25 MEQ EFFERV TAB ONE (10:40)
[2022-08-18 10:51] VITALS: TEMP 98.9
[2022-08-18 10:53] VITALS: BP 101/88; O2SAT 99
== END 2022-08-18 10:44 | disposition home or self-care (01) ==
LOC: ER 08:27
DX: N13.2 Hydronephrosis with renal and ureteral calculous obstruction (principal); N39.0 Urinary tract infection, site not specified; E87.6 Hypokalemia; Z96.0 Presence of urogenital implants; F17.210 Nicotine dependence, cigarettes, uncomplicated; Z88.0 Allergy status to penicillin
CPT/HCPCS: 36415; 74018; 74176; 76377; 80053; 81001; 83690; 85025; 96365; 96375; 99285; J0696; J2405; J7030

== ENCOUNTER 2022-09-19 17:48 | Inpatient (IN) | payer OTHER, SELFPAY ==
--- OUTSIDE RECORDS SUMMARY | 2022-09-19 17:52 | XMS REPORT | Continuity of Care Document ---
:[address] [facility] t Address [address] [place] [address]. [address] [place] [address] Care Team Providers Name Role Phone Pcp, Patient Does Not Have A Primary Care Physician +[id number] Ash Elaine MD Attending Clinician LEONARD ROSENTHAL Attending Clinician Unavailable Leonard Rosenthal DO Attending Clinician Taylor Real RN Attending Clinician Unavailable Miles Lynn MD Attending [...] Policy Number Effective Date Ex[place] Date [place] [facility] [place] [id number] 2015 [employer] 00:00:00 [place] [id number] [place]ICA[place] Problems Condition Condition Condition Status Onset Resolution Last Treating Co mments Source Name Details Category Date Date Treatment Clinician Date Ureteral Ureteral Disease Active Unive rs [place] 6-03 ity of 00:00: [place] 00 Medical Branch Rectal Rectal Disease Active 2020-02 Univers bleeding bleeding 2-16 ity of 00:00: [place] 00 Medical Branch Other Other Disease Active 2020-02 Univers constipati constipati 2-16 it y of on on 00:00: [place] [facility] Loss of Loss of Disease Active 2020-02 Univers weight weight 2-16 ity of 00:00: [place] [facility] Nausea and Nausea and Disease Active 2020-02 U nivers vomiting, vomiting, 2-16 ity of intractabi intractabi [place] lity of lity of 00 Medical vomiting vomiting Branch not not specified, specified, unspecifie unspecifie d vomiting d vomiting type type Vertigo Vertigo Disease Active 2020-02 Univers 2-16 ity of 00:00: [place] [facility] Methamphet Methamphet Disease Recurre [facility] [...] of 9-30 ity of foot, foot, 00:00: [place] right, right, 00 Medical initial initial Branch encounter encounter Obesity Obesity Disease Active Univers (BMI (BMI 9-30 ity of 30-39.9) 30-39.9) 00:00: [place] 00 Medical Branch Allergies, Adverse Reactions, Alerts Allergy Allergy Status Severity Reaction(s) Onset Inactive Treating Comm ents Source Name Type Date Date Clinician Penicill Propensi Active Hives, 2018-[address] [facility] to Itching, 9-19 [facility] adverse Rash 00:00: Medical reaction 00 Center s Morphine Propensi Active Hives, 2018- [facility] to Itching 9-19 [facility] adverse 00:00: Medical reaction 00 Center s Nicotine Propensi Active Itching, 2018-[address] [facility] ty to Rash 9- [facility] adverse 00:00: Medical reaction 00 Center s Penicill Propensi Active Hives, 2018- [facility] to Itching, 919 [facility] adverse Rash 00:00: Medical reaction 00 Center s Tramadol Propensi Active Hives, 2018- [facility] ty to Itching, 9 [facility] adverse Rash 00:00: Medical reaction 00 Center s Meperidi Propensi Active Rash 2016-0 Univer s ne ty to 5-13 ity of adverse 00:00: [place] reaction 00 Medical s Branch Opioids Propensi Active Rash 2016- Patient Univer s - ty to 5-13 reports ity of Morphine adverse 00:00: one [place] Analogue reaction 00 episode Medic al s s of rash Branch to morphine. She reports tolerated hydromorp hai and fentanyl w/o anaphylax is/rash. Penicill Propensi Active Nausea 2016-0 Univer s ins ty to and/or 5-13 ity of adverse Vomiting 00:00: [place] reaction Medical s Branch MEPERIDI DRUG Active Rash 2015- Univers NE INGREDI 5-13 ity of 00:00: [place] 00 Medical Branch OPIOIDS Drug Active Med Rash 2016 Univers - Class 5-13 ity of MORPHINE 00:00: [place] ANALOGUE 00 Medical S Branch PENICILL Drug Active N/V 2015-0 Univers INS Class 5-13 ity of 00:00: [place] 00 Medical Branch Family History Family Member Diagnosis Comments Start Date Stop Date Source Natural mother No Known Problem [facility] Social History Social Habit Start Date Stop Date Quantity Comments Source History of tobacco Smokes tobacco Un iversity of use daily [facility] Gender identity Universit y of [facility] Sexual orientation Univer sity of [facility] History of Social 2022-08-01 2022-08-01 Univers ity of function 00:00:00 00:00:00 [facility] Tobacco use and 2022-07-16 2022-07-16 Smokeless Universit y of exposure 00:00:00 00:00:00 tobacco non-user [facility] Alcohol intake 2017-11-06 2017-11-06 Current ADITYA Mercedes es 00:00:00 00:00:00 non-drinker of Medical Ce nter alcohol (finding) Cigarette 2017-11-02 2017-11-02 ADITYA Banda pack-years 00:00:00 00:00:00 [facility] Cigarettes smoked 2017-11-02 2017-11-02 ADITYA Banda current (pack per 00:00:00 00:00:00 Medical Center day) - Reported Sex Ass[birth year] At [birth year] ADITYA Ayoubs 00:00:00 00:00:00 [facility] Smoking Status Start Date Stop Date Source Smokes tobacco daily 2022-07-16 00:00:00 Univers ity [facility] Medications Ordered Filled Start Stop Current Ordering Indication Dosage Frequency Signature Comments Components Source Medication Medication Date Date Medication? Clinician (SIG) Name Name sulfamethox 2022- No [id number] 1{tbl} Take 1 Univers azole-trime 08-29 tablet by it y 00:00: 04:59 mouth in [place] (BACTRIM 00 :00 the Medical DS) 800-160 morning Branc h mg per and 1 tablet tablet in the evening. Do all this for 5 days. oxyBUTYnin Yes 5mg 5 mg, Univer s chloride 08-01 Oral, BID, ity o f (DITROPAN) 13:00: First dose [place] tablet 5 mg 00 on [facility] Medica l 08/01/22 at Branch 0800, Until [...] 500 mg 00 First dose Medical on [place] Branch 07/31/22 at 2345, Until Discontinu ed, ALEKSANDR
Re ason for Anti-Infec tive: Empiric Therapy for Suspected Infection< br>Empiric Therapy Site: Urine<b r>Duration of therapy: 72 hours HYDROcodone 0 2022- No 1{tbl} 1 tablet, Univers -acetaminop 08-01 Oral, ity of hen (NORCO) 04:45: 03:42 ONCE, 1 [place] 10-325 mg 00 :00 dose, On Medica l tablet 1 [place] Branch tablet 07/31/22 at 2345, Routine azithromyci 2022- No 1000mg 1,000 mg, Univers n 08-01 Oral, ity of (ZITHROMAX) 03:45: 03:53 ONCE, 1 [place] tablet 00 :00 dose, On Medical 1,000 mg [facility] 07/31/22 at 2245, ALEKSANDR
Re ason for Anti-Infec tive: Empiric Therapy for Suspected Infection< br>Empiric Therapy Site: Pelvic
Duration of therapy: 72 hours NaCl 0.9% 2022- No 1000mL at 999 Uni vers (NS) bolus 08-01 mL/hr, ity of infusion 02:45: 04:00 1,000 mL, Ronny as 1,000 mL 00 :00 IV Medical Piggyback, Branch ONCE, 1 dose, On 07/31/22 at 2145, STAT ondansetron 2022- No 4mg 4 mg, Slow Univers (ZOFRAN 08-01 IV Push, ity of (PF)) 01:45: 02:07 ONCE, 1 [place] injection 4 00 :00 dose, On Medi bridgette mg [facility] 07/31/22 at 2045, Routine ibuprofen 0 Yes [id number] 600mg Take 1 U nivers 600 mg 6-04 tablet by ity of tablet 00:00: mouth [place] 00 every 6 Medical (six) Branch hours as needed (Alternate with Tylenol). acetaminoph 0 Yes [id number] 650mg Take 1 Univers en (TYLENOL 6-04 tablet by ity of 8 HOUR) 650 00:00: mouth [place] mg CR 00 every 8 Medical tablet (eight) Branch hours as needed for Pain (Alternate with Ibuprofen every 3 hours). fluconazole 2023-0 Yes [id number] 150mg Take 1 Univers 150 mg 6-04 tablet by ity of tablet 00:00: mouth as [place] 00 needed Medical (Vaginal Branch candidiasi s). ibuprofen 2023-0 Yes [id number] 600mg Take 1 U nivers 600 mg 6-04 tablet by ity of tablet 00:00: mouth [place] 00 every 6 Medical (six) Branch hours as needed (Alternate with Tylenol). acetaminoph 2023-0 Yes [id number] 650mg Take 1 Univers en (TYLENOL 6-04 tablet by ity of 8 HOUR) 650 00:00: mouth [place] mg CR 00 every 8 Medical tablet (eight) Branch hours as needed for Pain (Alternate with Ibuprofen every 3 hours). fluconazole 3-0 Yes [id number] 150mg Take 1 Univers 150 mg 6-04 tablet by ity of tablet 00:00: mouth as [place] 00 needed Medical (Vaginal Branch candidiasi s). ibuprofen 3-0 Yes [id number] 600mg Take 1 U nivers 600 mg 6-04 tablet by ity of tablet 00:00: mouth [place] 00 every 6 Medical (six) Branch hours as needed (Alternate with Tylenol). acetaminoph 2023-0 Yes [id number] 650mg Take 1 Univers en (TYLENOL 6-04 tablet by ity of 8 HOUR) 650 00:00: mouth [place] mg CR 00 every 8 Medical tablet (eight) Branch hours as needed for Pain (Alternate with Ibuprofen every 3 hours). fluconazole 3-0 Yes [id number] 150mg Take 1 Univers 150 mg 6-04 tablet by ity of tablet 00:00: mouth as [place] 00 needed Medical (Vaginal Branch candidiasi s). ibuprofen 2023-0 Yes [id number] 600mg Take 1 U nivers 600 mg 6-04 tablet by ity of tablet 00:00: mouth [place] 00 every 6 Medical (six) Branch hours as needed (Alternate with Tylenol). acetaminoph 2023-0 Yes [id number] 650mg Take 1 Univers en (TYLENOL 6-04 tablet by ity of 8 HOUR) 650 00:00: mouth [place] mg CR 00 every 8 Medical tablet (eight) Branch hours as needed for Pain (Alternate with Ibuprofen every 3 hours). fluconazole 2023-0 Yes [id number] 150mg Take 1 Univers 150 mg 6-04 tablet by ity of tablet 00:00: mouth as [place] 00 needed Medical (Vaginal Branch candidiasi s). ibuprofen 3-0 Yes [id number] 600mg Take 1 U nivers 600 mg 6-04 tablet by ity of tablet 00:00: mouth [place] 00 every 6 Medical (six) Branch hours as needed (Alternate with Tylenol). acetaminoph 2022-0 Yes [id number] 650mg Take 1 Univers en (TYLENOL 6-04 tablet by ity of 8 HOUR) 650 00:00: mouth [place] mg CR 00 every 8 Medical tablet (eight) Branch hours as needed for Pain (Alternate with Ibuprofen every 3 hours). fluconazole 2022-0 Yes [id number] 150mg Take 1 Univers 150 mg 6-04 tablet by ity of tablet 00:00: mouth as [place] 00 needed Medical (Vaginal Branch candidiasi s). ibuprofen 2022-0 Yes [id number] 600mg Take 1 U nivers 600 mg 6-04 tablet by ity of tablet 00:00: mouth [place] 00 every 6 Medical (six) Branch hours as needed (Alternate with Tylenol). acetaminoph 2022-0 Yes [id number] 650mg Take 1 Univers en (TYLENOL 6-04 tablet by ity of 8 HOUR) 650 00:00: mouth [place] mg CR 00 every 8 Medical tablet (eight) Branch hours as needed for Pain (Alternate with Ibuprofen every 3 hours). fluconazole 2022-0 Yes [id number] 150mg Take 1 Univers 150 mg 6-04 tablet by ity of tablet 00:00: mouth as [place] 00 needed Medical (Vaginal Branch candidiasi s). sulfamethox 0 2022- Yes [id number] 1{tbl} Take 1 Univers azole-trime 6-04 06-19 tablet by it y of thoprim 00:00: 04:59 mouth in [place] (BACTRIM 00 :00 the Medical DS) 800-160 morning Branc h mg per and 1 tablet tablet in the evening. Do all this for 14 days. sulfamethox 2022-0 2022- Yes [id number] 1{tbl} Take 1 Univers azole-trime 6-04 06-19 tablet by it y of thoprim 00:00: 04:59 mouth in [place] (BACTRIM 00 :00 the Medical DS) 800-160 morning Branc h mg per and 1 tablet tablet in the evening. Do all this for 14 days. sulfamethox 2022-0 2022- No [id number] 1{tbl} Take 1 Univers azole-trime 6-05 19-19 tablet by it y of thoprim 00:00: 04:59 mouth in [place] (BACTRIM 00 :00 the Medical DS) 800-160 morning Branc h mg per and 1 tablet tablet in the evening. Do all this for 14 days. sulfamethox 2022-2022- Yes [id number] 1{tbl} Take 1 Univers azole-trime 6-05 19-19 tablet by it y of thoprim 00:00: 04:59 mouth in [place] (BACTRIM 00 :00 the Medical DS) 800-160 morning Branc h mg per and 1 tablet tablet in the evening. Do all this for 14 days. ketorolac 2022-0 2022- Yes 15mg 15 mg, Unive rs (TORADOL) 07-16-08 Slow IV ity of injection 18:21: 04:59 Push, [place] 15 mg 00 :00 Q6HPRN, 4 Medical doses, Branch Starting on 07/16/22 at 1321, Until 07/20/22 at 2359, Routine, Pain (scale 7-10) ketorolac 2022- No 15mg 15 mg, Unive rs (TORADOL) 07-16 Slow IV ity of injection 18:21: 21:43 Push, [place] 15 mg 00 :09 Q6HPRN, 4 Medical doses, Branch Starting on 07/16/22 at 1321, Until 07/17/22 at 1643, Routine, Pain (scale 7-10) acetaminoph 0 Yes 650mg 650 mg, Un rosalie en 07-16 Oral, Q6H, ity of (TYLENOL) 17:00: First dose [place] tablet 650 00 on Sat Medical mg 07/16/22 at Branch 1200, Until Discontinu ed, Routine acetaminoph 2022-0 2022- No 650mg 650 mg, U nivers en 07-16 06-04 Oral, Q6H, ity of (TYLENOL) 17:00: 21:43 First dose [place] tablet 650 00 :09 on Sat Medical mg 07/16/22 at Branch 1200, Until Discontinu ed, Routine lactated Yes 1000mL at 75 Univer s ringers IV 6-03 mL/hr, ity of infusion 15:15: 1,000 mL, [place] 1,000 mL 00 IV Medical Infusion, Branch CONTINUOUS , Starting on 07/16/22 at 1015, Until Discontinu ed, Routine, PACU lactated 2022- No 1000mL at 75 Unive rs ringers IV 6-03 06-04 mL/hr, ity of infusion 15:15: 21:43 1,000 mL, Ronny as 1,000 mL 00 :09 IV Medical Infusion, Branch CONTINUOUS , Starting on 07/16/22 at 1015, Until 07/17/22 at 1643, Routine, PACU ondansetron 2022- No Slow IV Un rosalie (ZOFRAN 07-16 Push, ONCE ity o f (PF)) 14:45: 15:13 INTRA [place] injection 00 :12 PROCEDURE, Medi bridgette Starting Branch on 07/16/22 at 0945, Until 07/16/22 at 1013, Routine, Intra-op PHENYLephri 2022- No Slow IV Un rosalie ne 1000 07-16 Push, ONCE ity o f mcg/10 mL 14:43: 15:13 INTRA [place] in 0.9% 00 :12 PROCEDURE, Medica l NaCl Starting Branch syringe on 07/16/22 at 0943, Until 07/16/22 at 1013, Routine, Intra-op dexamethaso 2022- No IV Push, U nivers ne 07-16-03 ONCE INTRA ity of (DECADRON 14:36: 15:13 [...] 0931, Until Discontinu ed, Routine, Intra-op famotidine 2022- No Slow IV Uni vers (PEPCID 07-16 [...] On 07/16/22 at 0900, STAT NaCl 0.9% 2022- No 500mL at 999 Univ ers (NS) bolus 07-16 mL/hr, 500 it y of infusion 14:00: 18:01 mL, IV [place] 500 mL 00 :00 Piggyback, Medical ONCE, 1 Branch dose, On 07/16/22 at 0900, STAT cefTRIAXone 2022- No 1000mg 1,000 mg, Univers (ROCEPHIN) 07-16 IV ity of 1,000 mg in 13:30: 13:46 [facility] [place] NaCl 0.9% 00 :27 Q24H ABX, Medic al (NS) 100 mL 2 doses, Bran ch MINI-BAG First dose on 07/16/22 at 0830, Last dose on 07/17/22 at 0830, Administer over 30 Minutes, 100 mL
Reas on for Anti-Infec tive: Empiric Therapy for Suspected Infection< br>Empiric Therapy Site: Urine
D uration of therapy: 72 hours cefTRIAXone 2022- No 1000mg 1,000 mg, Univers (ROCEPHIN) 07-16 IV ity of 1,000 mg in 13:30: 13:46 [facility], [place] NaCl 0.9% 00 :27 Q24H ABX, Medic al (NS) 100 mL 2 doses, Bran ch MINI-BAG First dose on 07/16/22 at 0830, Last dose on 07/17/22 at 0830, Administer over 30 Minutes, 100 mL
Reas on for Anti-Infec tive: Empiric Therapy for Suspected Infection< br>Empiric Therapy Site: Urine
D uration of therapy: 72 hours ketorolac 2022- No 15mg 15 mg, Unive rs (TORADOL) 07-16 Slow IV ity of injection 13:00: 12:14 Push, [place] 15 mg 00 :00 ONCE, 1 Medical dose, On Branch 07/16/22 at 0800, Routine ketorolac 2022- No 15mg 15 mg, Unive rs (TORADOL) 07-16 Slow IV ity of injection 13:00: 12:14 [...] No 1000mL at 100 Uni vers NaCl 6-03 06-04 mL/hr, ity of (1/2NS) IV 12:30: 21:43 1,000 mL, [place] infusion 00 :09 IV Medical 1,000 mL Infusion, Branch CONTINUOUS , Starting on 07/16/22 at 0730, Until 07/17/22 at 1643, Routine NaCl 0.9% 2023-0 2023- No 500mL at 999 Univ ers (NS) bolus 6-03 06-03 mL/hr, 500 it y of infusion 12:30: 12:57 mL, IV [place] 500 mL 00 :00 Infusion, Medical ONCE, 1 Branch dose, On 07/16/22 at 0730, Routine NaCl 0.9% 2023-0 2023- No 500mL at 999 Univ ers (NS) bolus 6-03 06-03 mL/hr, 500 it y of infusion 12:30: 12:57 mL, IV [place] 500 mL 00 :00 Infusion, Medical ONCE, 1 Branch dose, On 07/16/22 at 0730, Routine ondansetron 2023-0 Yes 4mg 4 mg, Slow Univers (ZOFRAN 6-03 IV Push, ity of (PF)) 12:20: Q4HPRN, [place] injection 4 13 Starting Medi bridgette mg on Sat Branch 07/16/22 at 0720, Until Discontinu ed, Routine, Nausea and Vomiting (N/V) ondansetron 2023-0 2023- No 4mg 4 mg, Slow Univers (ZOFRAN 6-03 06-04 IV Push, ity of (PF)) 12:20: 21:43 Q4HPRN, [place] injection 4 13 :09 Starting Medi bridgette mg on Sat Branch 07/16/22 at 0720, Until 07/17/22 at 1643, Routine, Nausea and Vomiting (N/V) acetaminoph No 1000mg 1,000 mg, Univers en 07-16 Oral, ity of (TYLENOL) 10:00: 09:09 ONCE, 1 [place] tablet 00 :00 dose, On Medical 1,000 mg 07/16/22 Bran h at 0500, Routine FENTanyl PF 2022- No 50ug 50 mcg, Un rosalie (SUBLIMAZE 07-16 Slow IV ity o f (PF)) 08:15: 08:54 Push, [place] injection 00 :00 ONCE, 1 Medical 50 mcg dose, On Branch 07/16/22 at 0315, STAT FENTanyl PF 2022- No 50ug 50 mcg, Un rosalie (SUBLIMAZE 07-16 Slow IV ity o f (PF)) 06:30: 06:02 [place], [place] injection 00 :00 ONCE, 1 Medical 50 mcg dose, On Branch 07/16/22 at 0130, Routine NaCl 0.9% 2022- No 1000mL at 999 Uni vers (NS) IV 07-16 mL/hr, ity of infusion 05:00: 05:30 Intravenou [place] 1,000 mL 00 :00 s, ONCE, 1 Medic al dose, On Branch 07/16/22 at 0000, ALEKSANDR ketorolac No 30mg 30 mg, Unive rs (TORADOL) 07-16 Slow IV ity of injection 04:30: 03:25 Push, [place] 30 mg 00 :00 ONCE, 1 Medical dose, On Branch 07/15/22 at 2330, Routine cefTRIAXone 2022- No 1000mg 1,000 mg, Univers (ROCEPHIN) 07-16 IV ity of 1,000 mg in 04:15: 05:04 Piggyback, [place] NaCl 0.9% 00 :00 ONCE, 1 Medical (NS) 100 mL dose, On [facility] MINI-BAG 07/15/22 at 2315, Administer over 30 Minutes, 100 mL
Reas on for Anti-Infec tive: Documented Infection< br>Documen nusrat Infection Site: Urine<br&g t;Duration of Therapy: Other (see Comments) ondansetron 2022- No 4mg 4 mg, Slow Univers (ZOFRAN 07-16 06-03 IV Push, ity of (PF)) 04:15: 04:42 ONCE, 1 [place] injection 4 00 :00 dose, On Medi bridgette mg 07/15/22 Branch at 2315, ALEKSANDR ALPRAZolam Yes anxiety 2mg Q.[id number] Take [address] [facility] (XANAX) 2 9-22 [id number] by mouth 3 [facility] tablet 20:00: 3D (three) Medic al 17 times Center daily. citalopram 2018 Yes depression 40mg QD Take [address] [facility] (CELEXA) 40 9-22 associated by mouth [facility] MG tablet 20:00: with daily. Medica l 17 bipolar Center disorder aspirin 81 2018-0 Yes 81mg QD Take [address] MG chewable 9-22 by mouth Luke s tablet 20:00: daily. [address] omeprazole [address] Yes 40mg QD Take [address] (PRILOSEC) 9-22 by mouth [facility] 40 MG 20:00: daily. Medical capsule [address] [place] [address] dextroamphe 0 Yes 30mg Q.5D Take [address] [facility] tamine-amph 9-22 by mouth 2 Ebony kes etamine 30 20:00: (two) Medica l mg Tab 17 times Center daily. ALPRAZolam Yes anxiety 2mg Q.[id number] Take [address] [facility] (XANAX) 2 9-22 [id number] by mouth 3 [facility] MG tablet 20:00: 3D (three) Medic al 17 times Center daily. citalopram 20180 Yes depression 40mg QD Take [address] [facility] [address] (CELEXA) 40 9-22 associated by mouth [facility] MG tablet 20:00: with daily. Medica l 17 bipolar Center disorder aspirin 81 2018-0 Yes 81mg QD Take [address] MG chewable 9-22 by mouth Luke s tablet 20:00: daily. [address] omeprazole 2018-0 Yes 40mg QD Take [address] (PRILOSEC) 9-22 by mouth [facility] 40 MG 20:00: daily. Medical capsule [address] [place] [address] dextroamphe 2018-0 Yes 30mg Q.5D Take [address] [facility] tamine-amph -22 by mouth 2 Ebony kes etamine 30 20:00: (two) Medica l mg Tab 17 times Center daily. ALPRAZolam Yes anxiety 2mg Q.[id number] Take [address] [facility] [address] (XANAX) 2 - [id number] by mouth 3 [facility] MG tablet 20:00: [...] mouth Luke s tablet 20:00: daily. Medical [address] [place] [address] omeprazole Yes 40mg QD Take [address] (PRILOSEC) -22 by mouth [facility] 40 MG 20:00: daily. Medical [address] dextroamphe Yes 30mg Q.5D Take [address] [facility] [address] tamine-amph - by mouth 2 Ebony kes etamine 30 20:00: (two) Medica l mg Tab 17 times Center daily. Vital Signs Vital Name Observation Time Observation Value Comments Source Heart rate 2022-08-01 03:42:00 88 /min [facility] Oxygen saturation in 2022-08-01 03:42:00 98 /min [facility] Arterial blood by [facility] Pulse oximetry Branch Systolic blood 2022-08-01 03:00:00 114 mm[Hg] [facility] Diastolic blood 2022-08-01 03:00:00 69 mm[Hg] [facility] Respiratory rate 2022-08-01 03:00:00 16 /min [facility] Body temperature 2022-08-01 01:41:00 37.22 [place] [facility] Body height 2022-08-01 01:41:00 154.9 cm [facility] Body weight 2022-08-01 01:41:00 68.04 kg [facility] BMI 2022-08-01 01:41:00 28.34 kg/m2 [facility] [place] [facility] Systolic blood 2022-07-17 12:41:00 118 mm[Hg] Univer sity of pressure [place] [facility] Diastolic blood 2022-07-17 12:41:00 70 mm[Hg] Unive rsity of pressure [place] [facility] Heart rate 2022-07-17 12:41:00 85 /min [facility] [place] [facility] Body temperature 2022-07-17 12:41:00 36.56 [place] Univ ersity of [place] [facility] Respiratory rate 2022-07-17 12:41:00 16 /min Univ ersity of [place] [facility] Oxygen saturation in 2022-07-17 12:41:00 98 /min University of Arterial blood by [place] [employer] bridgette Pulse oximetry Branch Body height 2022-07-16 10:32:00 154.9 cm [facility] [place] [facility] Body weight 2022-07-16 10:32:00 68.04 kg [facility] [place] [facility] BMI 2022-07-16 10:32:00 28.34 kg/m2 [facility] [place] [facility] Systolic blood 2022-07-16 15:30:00 103 mm[Hg] Univer sity of pressure [place] [facility] Diastolic blood 2022-07-16 15:30:00 63 mm[Hg] Unive rsity of pressure [place] [facility] Respiratory rate 2022-07-16 15:30:00 11 /min Univ ersity of [place] [facility] Oxygen saturation in 2022-07-16 15:30:00 100 /min University of Arterial blood by [facility] bridgette Pulse oximetry Branch Heart rate 2022-07-16 15:12:00 79 /min [facility] [place] [facility] Body temperature 2022-07-16 15:12:00 36.22 [place] Univ ersity [facility] [place] [facility] Body height 2022-07-16 10:32:00 154.9 cm [facility] [place] [facility] Body weight 2022-07-16 10:32:00 68.04 kg [facility] [place] [facility] BMI 2022-07-16 10:32:00 28.34 kg/m2 [facility] [place] [facility] Systolic blood 2022-07-16 09:00:00 118 mm[Hg] Univer sity of pressure [place] [facility] Diastolic blood 2022-07-16 09:00:00 77 mm[facility]Hg] [facility] Heart rate 2022-07-16 09:00:00 98 /min [facility] Body temperature 2022-07-16 09:00:00 37.78 [place] [facility] Respiratory rate 2022-07-16 09:00:00 25 /min [facility] Oxygen saturation in 2022-07-16 09:00:00 95 /min [facility] Arterial blood by [facility] Pulse oximetry [place] Body height 2022-07-16 02:56:00 154.9 cm [facility] Body weight 2022-07-16 02:56:00 68.04 kg [facility] BMI 2022-07-16 02:56:00 28.34 kg/m2 [facility] Procedures Procedure Date / Time Performed Performing Clinician Sourc e ADC CLC OR [facility] ONLY - 2022-08-01 03:52:[address] [facility] WET PREP [facility] COMP. METABOLIC PANEL 2022-08-01 02:59:[address] [facility] ([id number]) [facility] CT ABDOMEN PELVIS WO 2022-08-01 02:40:46 Singer Leonard [facility] CONTRAST [facility] CBC WITH DIFF 2022-08-01 02:04:00 Singer [facility] URINALYSIS 2022-08-01 02:04:00 [facility] CONSENT/REFUSAL FOR 2022-08-01 01:34:42 Doctor Unassigned, No Un [facility] DIAGNOSIS AND Name [facility] TREATMENT [place] TIME OR 2022-07-16 15:09:00 [facility] [place] TIME OR 2022-07-16 15:09:00 [facility] (NON-REPORTABLE) [facility] URINE CULTURE 2022-07-16 14:58:00 Miles Lynn [facility] Branch INTUBATION 2022-07-16 14:40:00 Harley Dominguez [facility] [place] [facility] CYSTOSCOPY WITH 2022-07-16 14:22:00 [facility]RE[facility] Medical B ranch URINALYSIS 2022-07-16 06:12:00 Nida Kiser [facility] BASIC METABOLIC PANEL 2022-07-16 04:34:00 Nida Kiser [facility] (NA, K, CL, CO2, Medical Branch GLUCOSE, BUN, CREATININE, CA) CBC WITH DIFF 2022-07-16 04:34:00 Nida Kiser [facility] CT ABDOMEN PELVIS WO 2022-07-16 04:28:26 [facility] URINALYSIS 2022-07-16 03:21:00 Nida Kiser [facility] CONSENT/REFUSAL FOR 2022-07-16 02:49:22 Doctor [facility]assigned, No [facility] AND Name Medical Branch TREATMENT NOTICE OF PRIVACY 2022-07-16 02:48:43 Doctor Unassigned, No Univ [facility] PRACTICES Name Medical Branch Encounters Start End Encounter Admission Attending Care Care Encounter Source Date/Time Date/Time Type Type Clinicians Facility Department ID 2022-08-25 2022-08-25 Telephone [place] [facility] [id number] Univers 00:00:00 00:00:00 Ash CARTY 350.1.13.10 it y of [place] [id number] [address] 2022-08-08 2022-08-08 Telephone [place] [facility] [id number] Univers 00:00:00 00:00:00 Ash MARCUS 350.1.13.10 i ty of [place] [facility] [facility] [phone] Ny dical NAL 204 Branch BUILDING 2022-07-31 2022-08-01 Emergency X SINGER VTPARDEEP ERT [id number] Univers 20:42:00 00:44:00 LEONARD tanner [facility] 2022-07-31 2022-08-01 Emergency Singer VTPARDEEP [id number] Univers 20:42:00 00:44:00 Leonard MARCUS 350.1.13.10 i ty of [place] 4.2.7.2.686 [facility] [phone] [facility] 084 Branch 2022-07-19 2022-07-19 Transition RUBY Real 1.2.840.114 [id number] Univers 00:00:00 00:00:00 of Lizzie SUERO 350.1.13.10 it y of [place] 4.2.7.2.686 [facility] [phone] [facility] 403 Branch 2022-07-16 2022-07-17 Emergency RADHA Lynn [id number] Univers 05:38:00 14:43:00 Miles WHITFIELD 350.1.13.10 i ty of [facility] 4.2.7.2.686 Ronny as [phone] [facility] 091 Branch 2022-07-16 2022-07-16 Surgery RADHA Lynn [id number] Univers 09:40:00 10:38:00 Miles WHITFIELD 350.1.13.10 i ty of [facility] 4.2.7.2.686 Ronny as [phone] [facility] 103 Branch 2022-07-16 2022-07-16 Anesthesia Steve Martinez [id number] 40.114 [id number] Univers 09:33:00 10:13:00 Event Raúl Neri 350.1.13.10 ity of [facility] 42.7.2.686 Ronny as [id number] [facility] 103 Branch 2022-07-15 2022-07-16 Emergency [facility] [id number] Univers 21:50:00 04:18:00 Nida MARCUS 350.1.13.10 ity of [place] 4.2.7.2.686 [facility] [id number] [facility] 084 Branch 2022-07-15 2022-07-16 Emergency X [facility] ERT [id number] Univers 21:50:00 04:18:00 NIDA tanner of [facility] 2022-07-15 2022-07-16 Emergency X [facility] ERT [id number] Univers 21:50:00 04:18:00 NIDA chuckyviki [facility] 2020-01-01 2020-01-01 Outpatient [facility] [id number] [place] 02:21:00 02:21:00 [facility] 2020-01-01 2020-01-01 Outpatient [facility] [id number] [place] 02:21:00 02:21:00 1208 Medical Group Results Test Description Test Time Test Comments Results Result Comments Source CBC WITH DIFF 2022-08-01 02:32:29 Test Item Value Reference Range Interpretation Comme nts WBC (test code = 6690-2) 9.96 See_Comment [A utomated message] The system which ge nerated this result transmit nusrat reference range: 4.30 - 1 1.10 10*3/?L. The reference r dorothy was not used to interpr et this result as normal/abnor mal. RBC (test code = 789-8) 4.21 See_Comment [Au tomated message] The system which ge nerated this result transmit [...] 34.4 g/dL 31.6-35.1 RDW-SD (test code = 93261-7) 42.4 fL 39.0-49.9 RDW-CV (test code = 788-0) 13.2 % 12.0-15.5 PLT (test code = 777-3) 283 See_Comment [Au tomated message] The system which ge nerated this result transmit nusrat reference range: 166 - 35 8 10*3/?L. The reference range was not used to interpret th is result as normal/abnormal . MPV (test code = 73041-1) 11.3 fL 9.5-12.9 NRBC/100 WBC (test code = 0.0 See_Comment [ Automated message] The 6541338700) system which [employer] nerated this result transmit nusrat reference range: 0.0 - 10 .0 /100 WBCs. The reference r dorothy was not used to interpr et this result as normal/abnor mal. NRBC x10^3 (test code = See_Comment [Au tomated message] The 2434667828) system which [employer] nerated this result transmit nusrat reference range: 10*3/?L. The reference range was not u sed to interpret this result as normal/abnormal . GRAN MAT (NEUT) % (test code 53.7 % = 770-8) IMM GRAN % (test code = 0.30 % 9853015703) LYMPH % (test code = 736-9) 35.1 % MONO % (test code = 5905-5) 5.8 % EOS % (test code = 713-8) 4.0 % BASO % (test code = 706-2) 1.1 % GRAN MAT x10^3(ANC) (test 5.34 10*3/uL 1.88-7.09 code = 8940373915) IMM GRAN x10^3 (test code = 0.03 10*3/uL 0.00-0.06 7659676232) LYMPH x10^3 (test code = 3.50 10*3/uL 1.32-3.29 H 731-0) MONO x10^3 (test code = 0.58 10*3/uL 0.33-0.92 742-7) EOS x10^3 (test code = 0.40 10*3/uL 0.03-0.39 H 711-2) BASO x10^3 (test code = 0.11 10*3/uL 0.01-0.07 H 704-7) Lab Interpretation (test Abnormal code = 23374-8) [facility] METABOLIC PANEL (NA, K, CL, CO2, GLUCOSE, BUN, CREATININE, CA)2022-07-16 05:01:11 Test Item Value Reference Range Interpretation Comments NA (test code = 137 mmol/L 135-145 9541507254) K (test code = 3.8 mmol/L 3.5-5.0 5509253413) CL (test code = 102 mmol/L 98-108 9564744656) CO2 TOTAL (test code 26 mmol/L 23-31 = 6313302829) AGAP (test code = 9 2-16 7840740778) BUN (test code = 14 mg/dL 7-23 6926014639) GLUCOSE (test code = 71 mg/dL 70-110 8065460786) CREATININE (test code 0.91 mg/dL 0.50-1.04 = 2298934820) CALCIUM (test code = 9.2 mg/dL 8.6-10.6 6456990733) eGFR (test code = 65.4 mL/min/1.73m2 6914281961) LENO (test code = LENO) Association of [...] or urine or abnormalities in imaging tests). [facility] WITH [id number] 04:48:31 Test Item Value Reference Range Interpretation Comments WBC (test code = 13.85 See_Comment H [Automated 6690-2) message] The system which generated this result transmit nusrat reference range : 4.30 - 11.10 10*3/?L. The reference range was not used to interpret this result as normal/abnormal . RBC (test code = 4.66 See_Comment [Automated 789-8) message] The system which generated this result [...] RDW-SD (test code = 40.4 fL 39.0-49.9 13044-0) RDW-CV (test code = 12.8 % 12.0-15.5 788-0) PLT (test code = 234 See_Comment [Automated 777-3) message] The system which generated this result transmit nusrat reference range : 166 - 358 10*3/ ?L. The reference range was not u sed to interpret th is result as normal/abnormal . MPV (test code = 11.2 fL 9.5-12.9 19558-0) NRBC/100 WBC (test 0.0 See_Comment [Automat ed code = 4727290127) message] The system which generated this result transmit nusrat reference range : 0.0 - 10.0 /100 WBCs. The reference range was not used to interpret this result as normal/abnormal . NRBC x10^3 (test code See_Comment [Auto mated = 0069744172) message] The system which generated this result transmit nusrat reference range : 10*3/?L. The reference range was not used to interpret this result as normal/abnormal . GRAN MAT (NEUT) % 84.4 % (test code = 770-8) IMM GRAN % (test code 0.60 % = 0250290623) LYMPH % (test code = 8.9 % 736-9) MONO % (test code = 4.8 % 5905-5) EOS % (test code = 0.9 % 713-8) BASO % (test code = 0.4 % 706-2) GRAN MAT x10^3(ANC) 11.67 10*3/uL 1.88-7.09 H (test code = 8610666632) IMM GRAN x10^3 (test 0.09 10*3/uL 0.00-0.06 H code = 5118775431) LYMPH x10^3 (test code 1.23 10*3/uL 1.32-3.29 L = 731-0) MONO x10^3 (test code 0.67 10*3/uL 0.33-0.92 = 742-7) EOS x10^3 (test code = 0.13 10*3/uL 0.03-0.39 711-2) BASO x10^3 (test code 0.06 10*3/uL 0.01-0.07 = 704-7) Lab Interpretation Abnormal (test code = 99373-6) [facility] [id number] 15:02:00Surgical Pathology Report Case: [id number] Authorizing Provider: Sergio García MD Collected: 11/03/2017 1909 Ordering Location: [facility] PERIOPERATIVE Received: 11/05/2017 1229 SERVICES Pathologist: Lauryn Tejeda MD Specimen: Gallbladder, gall bladder GALLBLADDER, CHOLECYSTECTOMY: - ACUTE AND CHRONIC CHOLECYSTITIS - CHOLELITHIASIS - ONE BENIGN REACTIVE LYMPH NODE (0/1) Signing Pathologist Direct Phone Line: [phone] signed by Lauryn Tejeda MD on 11/07/2017 at 3:02 [id number] Received fresh labeled "gallbladder" is an 8.0 [...] one bisected cystic duct lymph node; A2, business development representative section of gallbladder. DB/pl Performed.HEPATIC FUNCTION [id number] 07:03:00 Test Item Value Reference Range Interpretation [...] 65 U/L 6-55 H 347) BASIC METABOLIC [id number] 07:03:00 Test Item Value Reference Range Interpretation [...] PATIEN TS. CBC W/PLT COUNT & AUTO [id number] 04:20:00 Test Item Value Reference Range Interpretation [...] PERCENT (BEAKER) (test code = 2801) [place], [id number] 07:54:00Reason for exam:->ERCP for biliary stent removal [...] = 38 U/L 6-55 347) BASIC METABOLIC [id number] 06:33:00 Test Item Value Reference Range Interpretation [...] PATIEN TS. CBC W/PLT COUNT & AUTO [id number] 05:29:00 Test Item Value Reference Range Interpretation [...] 0-1 PERCENT (BEAKER) (test code = 2801) [id number] 07:20:00 Test Item Value Reference Range Interpretation Comments LIPASE (BEAKER) (test code = 749) 67 U/L 8-78 BASIC METABOLIC [id number] 07:20:00 Test Item Value Reference Range Interpretation [...] APPLICABLE FOR DIALYSIS PATIEN TS. HEPATIC FUNCTION [id number] 07:20:00 Test Item Value Reference Range Interpretation [...] code = 32 U/L 6-55 347) PROTHROMBIN [id number] 06:57:00 Test Item Value Reference Range Interpretation Comments PROTIME (BEAKER) (test code = 14.6 seconds 11.7-14.7 759) INR (BEAKER) (test code = 370) 1.1 <=5.9 RECOMMENDED COUMADIN/WARFARIN INR THERAPY RANGESSTANDARD DOSE: 2.0 - 3.0 Includes: PROPHYLAXIS for venous thrombosis, systemic embolization; TREATMENT for venous thrombosis and/or pulmonary embolus.HIGH RISK: Target INR is 2.5-3.5 for patients with mechanical heart valves.CBC W/PLT COUNT & AUTO [id number] 06:49:00 Test Item Value Reference Range Interpretation [...] = 2801) Notes Date/Time Note Provider Source 2022-08-29 Formatting of this note might be differe nt from the original. Alisa Gill RN [facility] 13:48:10-00:00 Patient notified of results/ recommendations, understanding was verbalized via teach back. Will route to PSS to schedule OV Electronically signed by Alisa Gill RN at 0 08/29/2022 1:50 PM CDT 2022-08-29 [facility] 13:27:07-00:00 Please schedule nurse visit for ucx, I will send oral abx, RTC Wed ok to OB I also orders a AXR KUB She still has a stone in the kidney which needs to be treated prior to removing the stent, otherwise the stone may fall and cause further obstruction Thanks Electronically signed by Ash Elaine MD at 0 08/29/2022 1:34 PM CDT 2022-08-29 [facility] 13:26:45-00:00 Thank you very much Electronically signed by sAh Elaine MD at 0 08/29/2022 1:27 PM CDT 2022-08-29 Formatting of this note might be differe nt from the original. URO- UROLOGY STAFF [facility] 12:41:41-00:00 Pt no show for Dr. [place] flor 08/09, needs definitive stone management at which time new stent will be placed. Will defer timing to Dr. Elaine given pt is adult, not pediatric patient. Miles Lynn MD 08/29/22 12:42 PM 2022-08-29 Formatting of this note might be differe nt from the original. Mandy Villagomez [facility] 11:57:35-00:00 Patient a patient calling stating she is having a lot of pain and pressure to lower abdomen. She states she has been to an ER several times and they keep putting her on antibiotics but nothing Christal RN is helping with the pain. P atient states she is currently taking Levaquin. Patient is not to have her stent removed until 10/04/22, states she is having a hard time working and doing ADLs due to pain. Please advise. 2022-08-26 Formatting of this note might be differe nt from the original. Ruthie Calix [facility] 10:35:50-00:00 Please advise 23 10:36 AM CDT 2022-08-25 Formatting of this note might be differe nt from the original. Debbie Walker [facility] 15:07:29-00:00 Elizabeth Mary is a 52 year old female Patient is calling in regard s to her appointment that is scheduled on 10/04 at 11am for possible stent removal requesting a sooner appointment if there is anything available due to being in pain, patien t stating she is unsure if s he can wait that long. Please be advised and assist [phone] (home) Electronically signed by Debbie Walker at 3:11 PM CDT 2017-11-03 SERGIO GARCÍA [facility] 22:40:00-00:00 REPORT OF PROCEDURE ELIZABETH MONTELONGO FACILITY: [facility] BILLING #: [id number] ROOM: [facility] [id number] MR #: [id number] : 1970 DATE OF PROCEDURE: 11/03/2017 SURGEON: Sergio García MD EGG BREAKING MACHINE OPERATOR: Cheyanne Brandon MD PREOPERATIVE DIAGNOSES: Symptomatic cholelithias [...] in stable condition. OB/rty P P Job#: [id number] Doc#: [id number] FN: [id number] cc: Sergio García MD
--- NOTE | 2022-09-19 19:01 | RAD REPORT ---
EXAM DESCRIPTION: CT - Stone Protocol - 09/19/2022 6:38 pm CLINICAL HISTORY: Abdominal pain. Left flank COMPARISON: August 2022 TECHNIQUE: Computed axial tomography of the abdomen pelvis was obtained without oral or IV contrast. Lack of IV and oral contrast limits evaluation of solid organs, appendix, bowel, and vessels. Jackson l reformatted images were obtained and reviewed. All CT scans are performed using dose optimization technique as appropriate and may include automated exposure control or mA/KV adjustment according to patient size. FINDINGS: 5 millimeter calculus lies within a lower pole calyx left kidney. Left ureteral stent. Mil d left hydronephrosis without significant change from the prior exam. Stranding adjacent to the left renal pelvis and left ureter. Small right renal calculus without hydronephrosis. Cirrhotic liver. Cholecystectomy. Spleen is upper limits normal size. Pancreas and adrenals unremarkable There is no evidence of diverticulitis. The appendix appears jayla mild soft tissue posteriorly. 7.5 centimeter left ovarian cystic mass containing mild soft tissue IMPRESSION: Left ureteral stent. Mild left hydronephrosis 5 millimeter nonobstructing left renal calculus. Stranding adjacent to the left renal pelvis and left ureter may indicate infection 7.5 centimeters cystic left ovarian mass. Ultrasound recommended
--- NOTE | 2022-09-19 19:06 | ER ---
Nurse's Notes [facility] Name: Nany Mary Age: 52 yrs Sex: Female : 1970 Arrival Date: 09/19/2022 Time: 17:48 Bed 5 Private MD: Diagnosis: Left flank pain;Fever, unspecified;Other and unspecified hydronephrosis;Hypokalemia Presentation: 09/19 18:00 Chief complaint: Patient states: L flank pain and fever that began 3 days ago. Pt had a ss renal stent placed 1 month ago at [facility] due to kidney stones and reports that she has been unable to follow up. Coronavirus screen: Client denies travel out of the [place] in the last 14 days. Ebola Screen: Patient denies exposure to infectious person. Patient denies travel to an Ebola-affected area in the 21 days before illness onset. Initial Sepsis Screen: Does the patient meet any 2 criteria? No. Patient's initial sepsis screen is negative. Does the patient have a suspected source of infection? No. Patient's initial sepsis screen is negative. Risk Assessment: Do you want to hurt yourself or someone else? Patient reports no desire to harm self or others. Onset of symptoms was September 16, 2022. 18:00 Method Of Arrival: Wheelchair ss 18:00 Acuity: ANTHONY 2 ss Historical: - Allergies: 18:04 PENICILLINS; ss - PMHx: 18:04 ADD/ADHD; Chronic Pancreatitis; Depression; HEP C; left leg DVT; liver and pancrease ss laceration when she was 10; - PSHx: 18:04 Carpal Tunnel; Hysterectomy; tubal ligation; Renal stent; ss - Immunization history:: Adult Immunizations unknown. - Social history:: Smoking status: unknown. Screenin:58 [facility] ED Fall Risk Assessment (Adult) History of falling in the last 3 months, rv including since admission No falls in past 3 months (0 pts) Confusion or Disorientation No (0 pts) Intoxicated or Sedated No (0 pts) Impaired Gait No (0 pts) Mobility Assist Device Used. Abuse screen: Denies threats or abuse. Denies injuries from another. Nutritional screening: No deficits noted. Tuberculosis screening: No symptoms or risk factors identified. Assessment: 19:58 General: Appears uncomfortable, Behavior is calm, cooperative. Pain: Complains of pain rv in abdomen. Neuro: Level of Consciousness is awake, alert, obeys commands, Oriented to person, place, time, situation. Cardiovascular: Capillary refill < 3 seconds. Respiratory: Airway is patent Respiratory effort is even, unlabored. GI: Bowel sounds present X 4 quads. Abd is soft and non tender X 4 quads. 20:31 Reassessment: Patient is alert, oriented x 3, equal unlabored respirations, skin rv warm/dry/pink. Patient states feeling better. 21:10 Reassessment: Patient appears in no apparent distress at this time. Patient and/or jb4 family updated on plan of care and expected duration. Pain level reassessed. Patient is alert, oriented x 3, equal unlabored respirations, skin warm/dry/pink. Vital Signs: 18:00 BP 129 / 86; Pulse 109; Resp 18; Temp 101.4(O); Pulse Ox 100% on R/A; Weight 54.43 kg; ss Height 5 ft. 1 in. ; Pain 8/10; 20:02 BP 106 / 59; Pulse 96; Resp 17; Temp 101.3; Pulse Ox 97% on R/A; rv 20:31 Temp 99.6; rv 21:10 BP 113 / 76; Pulse 87; Resp 16; Pulse Ox 97% on R/A; jb4 18:00 Body Mass Index 22.67 (54.43 kg, 154.94 cm) ss 18:00 Pain Scale: Adult ss Ronnie Coma Score: 21:57 Eye Response: spontaneous(4). Motor Response: obeys commands(6). Verbal Response: rv oriented(5). Total: 15. ED Course: 17:48 Patient arrived in ED. rg4 17:52 Alexandro Enciso DO is Attending Physician. ms3 18:04 Triage completed. ss 18:04 Arm band placed on right wrist. ss 18:40 Stone Protocol In Process Unspecified. EDMS 18:58 Inserted saline lock: 22 gauge in right hand, using aseptic technique. Blood collected. iw 19:13 Araceli Ro, RN is Primary Nurse. iw 20:00 Patient has correct armband on for positive identification. Placed in gown. Bed in low rv position. Call light in reach. Side rails up X 1. Client placed on continuous cardiac and pulse oximetry monitoring. NIBP monitoring applied. 20:01 Provided Education on: KIDNEY STONES. rv 20:01 No provider procedures requiring assistance completed. rv 20:27 Connected with Shawna at [facility] transfer center. mb4 20:51 Kyle Duran MD is Hospitalizing Provider. ms3 21:56 Patient admitted, IV remains in place. rv Administered Medications: 19:34 Drug: Acetaminophen PO 1000 mg Route: PO; rv 21:57 Follow up: Response: Temperature is decreased rv 19:34 Drug: LevaQUIN IVPB 750 mg Route: IVPB; Site: right hand; rv 21:57 Follow up: Response: No adverse reaction; IV Status: Completed infusion rv 19:34 Drug: morphine IVP or IV 4 mg Route: IVP; Infused Over: 4 mins; Site: right hand; rv 21:57 Follow up: Response: No adverse reaction rv 19:34 Drug: Ondansetron IVP 4 mg Route: IVP; Site: right hand; rv 21:57 Follow up: Response: No adverse reaction rv 20:19 Drug: Potassium PO Effervescent Tablet 50 mEq Route: PO; rv 21:56 Follow up: Response: No adverse reaction rv Medication: 20:01 VIS not applicable for this client. rv Outcome: 19:06 ER care complete, transfer ordered by MD. ms3 20:52 Decision to Hospitalize by Provider. ms3 21:56 Admitted to Med/surg accompanied by nurse, via wheelchair, room 223, with chart, Report rv called to BERNARD MCLEAN 21:56 Condition: good 21:56 Instructed on the need for admit. 22:00 Patient left the ED. rv Signatures: Dispatcher [employer] EDMS Araceli Ro RN Salome Ch RN RN Corina Gomez rg4 Harley Nguyen RN RN jb4 Eugenio Lin RN RN rv Conchis Sims mb4 Alexandro Enciso DO DO ms3
--- NOTE | 2022-09-19 19:06 | EDPHYS ---
Physician Documentation [facility] Name: Nany Mary Age: 52 yrs Sex: Female : 1970 Arrival Date: 09/19/2022 Time: 17:48 Bed 5 Private MD: ED Physician Alexandro Enciso HPI: 09/19 18:56 This 52 yrs old Female presents to ER via Wheelchair with complaints of Left flank pain.ms3 18:56 52-year-old female with past medical history of ADD/ADHD, chronic pancreatitis, ms3 depression, hepatitis C, left leg DVT presents for left flank pain that began 3 days prior to arrival. Patient states her pain is an 8/10 described as burning. Patient endorses dysuria, nausea. Patient denies vomiting. Patient states she recently had a ureteral stent placed at [facility].. Historical: - Allergies: 18:04 PENICILLINS; ss - PMHx: 18:04 ADD/ADHD; Chronic Pancreatitis; Depression; HEP C; left leg DVT; liver and pancrease ss laceration when she was 10; - PSHx: 18:04 Carpal Tunnel; Hysterectomy; tubal ligation; Renal stent; ss - Immunization history:: Adult Immunizations unknown. - Social history:: Smoking status: unknown. ROS: 18:56 Neck: Negative for injury, pain, and swelling, Cardiovascular: Negative for chest pain, ms3 and palpitations. Respiratory: Negative for shortness of breath, cough, wheezing, and pleuritic chest pain, Abdomen/GI: Negative for abdominal pain, nausea, vomiting, diarrhea, and constipation, MS/Extremity: Negative for injury and deformity, Skin: Negative for injury, rash, and discoloration. 18:56 Constitutional: Positive for chills, fever. 18:56 Back: Positive for flank pain, on the left. Exam: 18:56 Constitutional: This is a well developed, well nourished patient who is awake, alert, ms3 and in no acute distress. Head/Face: Normocephalic, atraumatic. Neck: Trachea midline, no cervical lymphadenopathy. Supple, full range of motion without nuchal rigidity, or vertebral point tenderness. No Meningismus. Chest/axilla: Normal chest wall appearance and motion. Nontender with no deformity. 18:56 Abdomen/GI: Soft, non-tender, with normal bowel sounds. No distension or tympany. No guarding or rebound. No evidence of tenderness throughout. 18:56 MS/ Extremity: Pulses equal, no cyanosis. Neurovascular intact. Full, normal range of motion. 18:56 Cardiovascular: Rate: tachycardic, Rhythm: regular, Pulses: no pulse deficits are appreciated. 18:56 : CVA tenderness, on the left. Vital Signs: 18:00 BP 129 / 86; Pulse 109; Resp 18; Temp 101.4(O); Pulse Ox 100% on R/A; Weight 54.43 kg; ss Height 5 ft. 1 in. ; Pain 8/10; 20:02 BP 106 / 59; Pulse 96; Resp 17; Temp 101.3; Pulse Ox 97% on R/A; rv 20:31 Temp 99.6; rv 21:10 BP 113 / 76; Pulse 87; Resp 16; Pulse Ox 97% on R/A; jb4 18:00 Body Mass Index 22.67 (54.43 kg, 154.94 cm) ss 18:00 Pain Scale: Adult ss [place] Coma Score: 21:57 Eye Response: spontaneous(4). Motor Response: obeys commands(6). Verbal Response: rv oriented(5). Total: 15. MDM: 18:03 Patient medically screened. ms3 18:56 Differential diagnosis: nephrolithiasis, pyelonephritis, UTI. ms3 19:06 ED course: Patient with recent stent placement at [facility]. No Urology application integration architect at [facility] this time and patient with stent and pyelonephritis. Will transfer back to [facility].. 20:49 ED course: Discussed case with [facility] Urology. Patient missed appointment in August for ms3 stent removal. Patient can be observed for IV abx and IVF over night. Patient to follow up in their clinic in 1 week. Phone number .. 20:52 Data reviewed: vital signs, nurses notes, lab test result(s), radiologic studies, and ms3 as a result, I will admit patient. Consideration of Admission/Observation Patient was admitted/placed on observation. Management of patient was discussed with the following: Hospitalist: Dr Cody. I considered the following discharge prescriptions or medication management in the emergency department Medications were administered in the Emergency Department. See MAR. Counseling: I had a detailed discussion with the patient and/or guardian regarding: the historical points, exam findings, and any diagnostic results supporting the discharge/admit diagnosis, lab results, radiology results, the need for further work-up and treatment in the hospital. 09/19 18:03 Order name: Blood Culture Adult (2) ms3 09/19 18:03 Order name: CBC with Diff; Complete Time: 20:01 ms3 09/19 18:03 Order name: CMP; Complete Time: 20:01 ms3 09/19 18:03 Order name: Lactate w/ 2H reflex if indic.; Complete Time: 20:01 ms3 09/19 18:03 Order name: Protime (+inr); Complete Time: 20:01 ms3 09/19 18:03 Order name: Ptt, Activated; Complete Time: 20:01 ms3 09/19 18:03 Order name: Urinalysis w/ reflexes; Complete Time: 20:01 ms3 09/19 19:47 Order name: Urine Culture EDMS 09/19 21:10 Order name: Urinalysis w/ reflexes EDMS 09/19 21:10 Order name: Basic Metabolic Panel EDMS 09/19 21:10 Order name: Basic Metabolic Panel EDMS 09/19 21:10 Order name: CBC with Automated Diff EDMS 09/19 21:10 Order name: CBC with Automated Diff EDMS 09/19 21:10 Order name: Magnesium EDMS 09/19 21:10 Order name: Magnesium EDMS 09/19 21:14 Order name: Basic Metabolic Panel EDMS 09/19 21:14 Order name: Magnesium EDMS 09/19 18:33 Order name: Stone Protocol; Complete Time: 19:03 EDMS 09/19 18:03 Order name: EKG; Complete Time: 18:03 ms3 09/19 21:10 Order name: CONS Physician Consult EDMS 09/19 21:10 Order name: Full Liquid EDMS 09/19 18:03 Order name: Accucheck; Complete Time: 19:18 ms3 09/19 18:03 Order name: Cardiac monitoring; Complete Time: 19:18 ms3 09/19 18:03 Order name: EKG - Nurse/Tech; Complete Time: 19:18 ms3 09/19 18:03 Order name: IV Saline Lock - Large Bore; Complete Time: 19:18 ms3 09/19 18:03 Order name: Labs collected and sent; Complete Time: 19:18 ms3 09/19 18:03 Order name: O2 Per Protocol; Complete Time: 19:18 ms3 09/19 18:03 Order name: O2 Sat Monitoring; Complete Time: 19:18 ms3 09/19 18:03 Order name: Vital Signs; Complete Time: 19:18 ms3 Administered Medications: 19:34 Drug: Acetaminophen PO 1000 mg Route: PO; rv 21:57 Follow up: Response: Temperature is decreased rv 19:34 Drug: LevaQUIN IVPB 750 mg Route: IVPB; Site: right hand; rv 21:57 Follow up: Response: No adverse reaction; IV Status: Completed infusion rv 19:34 Drug: morphine IVP or IV 4 mg Route: IVP; Infused Over: 4 mins; Site: right hand; rv 21:57 Follow up: Response: No adverse reaction rv 19:34 Drug: Ondansetron IVP 4 mg Route: IVP; Site: right hand; rv 21:57 Follow up: Response: No adverse reaction rv 20:19 Drug: Potassium PO Effervescent Tablet 50 mEq Route: PO; rv 21:56 Follow up: Response: No adverse reaction rv Disposition Summary: 09/19/22 20:52 Hospitalization Ordered Hospitalization Status: Observation ms3 Provider: Kyle Duran ms3 [facility] ms3 Condition: Stable(09/19/22 20:52) ms3 Problem: new(09/19/22 20:52) ms3 Symptoms: are unchanged(09/19/22 20:52) ms3 Bed/Room Type: Standard ms3 Room Assignment: 223(09/19/22 21:09) Diagnosis - Left flank pain ms3 - Fever, unspecified ms3 - Other and unspecified hydronephrosis(09/19/22 20:52) ms3 - Hypokalemia ms3 Forms: - Medication Reconciliation Form ms3 - SBAR form ms3 Signatures: Dispatcher [employer] EDSalome Cardona RN RN ss Garcia, Cindy, RN RN cg Eugenio Lin RN RN rv Sims, Marcus, DO DO ms3 Corrections: (The following items were deleted from the chart) 18:33 18:17 Abdomen Pelvis Wo Con+CT.RAD.BRZ ordered. EDMS EDMS 20:51 19:06 Dr ms3 ms3 20:51 19:06 UT-System ms3 ms3 20:51 19:06 Higher level of care ms3 ms3 20:51 19:06 Stable ms3 ms3 20:51 19:06 new ms3 ms3 20:51 19:06 are unchanged ms3 ms3 20:51 19:06 Pyelonephritis acute ms3 ms3 20:51 19:06 Other and unspecified hydronephrosis ms3 ms3 21:09 20:52 ms3 cg
[2022-09-19 19:16] LABS: Absolute Lymphocytes (CBC) 1.2 K/uL (0.7-4.9); Hematocrit 34.6 % (36.0-45.0); Lymphocytes % 12.6 % (15.3-44.8); MCV 85.6 fL (80-100); MPV 8.1 fL (7.6-11.3); Platelets 254 thou/uL (152-406); RBC Red Blood Cell Count 4.04 M/uL (3.86-4.86)
[2022-09-19 19:20] LABS: Protime INR 1.11
[2022-09-19 19:26] LABS: Albumin 2.8 g/dL (3.4-5.0); Bilirubin Total 0.4 mg/dL (0.2-1.0); Protein, Total 7.4 g/dL (6.4-8.2)
[2022-09-19] MEDS ORDERED: ACETAMINOPHEN 500 MG TAB ONE (19:31)
[2022-09-19] MEDS ORDERED: Levofloxacin 750mg IV 750 MG/150 ML BAG IV ONE (19:31)
[2022-09-19] MEDS ORDERED: ONDANSETRON 4 MG/2 ML VIAL ONE (19:36)
[2022-09-19 19:37] LABS: Specific Gravity 1.006 (1.005-1.030); Urine Bacteria <20 /HPF (<20); Urine Bilirubin NEGATIVE (Negative); Urine Blood 1+ (Negative); Urine Clarity Extremely Turbid (Clear); Urine Color Colorless (Yellow); Urine Glucose NEGATIVE (Negative); Urine Mucus Slight /HPF (None Seen); Urine Protein TRACE (Negative); Urine RBC 21-50 /HPF (None Seen); Urine Urobilinogen Normal (Normal); Urine WBC Clump Occasional /HPF (None Seen); Urine pH 6.5 (5.0-7.0)
[2022-09-19] MEDS ORDERED: MORPHINE 4 MG/ML SYR ONE (19:37)
[2022-09-19 19:56] LABS: Potassium 2.6 mEq/L (3.5-5.1)
[2022-09-19] MEDS ORDERED: POTASSIUM 25 MEQ EFFERV TAB ONE (20:21)
[2022-09-19] MEDS ORDERED: ONDANSETRON 4 MG/2 ML VIAL IV PRN (21:09)
[2022-09-19] MEDS ORDERED: ZOLPIDEM TARTRATE 5 MG TABLET PO PRN (21:09)
--- NOTE | 2022-09-19 21:22 | P.HP ---
Certification for Inpatient Patient admitted to: Observation Patient will require the following post-hospital care: None Practitioner: I am a practitioner with admitting privileges, knowledge of patient current condition, hospital course, and medical plan of care. Services: Services provided to patient in accordance with Admission requirements found in Title 42 Section 412.3 of the Code of Federal Regulations Patient History Date of Service: 09/19/22 Reason for admission: Left Flank pain History of Present Illness: 52-year-old female with a past medical history depression, hepatitis C, chronic pancreatitis, ADD, ADHD, DVT left lower extremity presents to the emergency room with left flank pain. She reports left flank plain started yesterday, it is worse today, scale of 8 out of 10. She reports recent ureteral stent from [facility], was supposed to have ureteral stent removed reports she does not have insurance and did not keep her follow-up appointment. She reports associated fever, chills that was today. Reports nausea with no vomiting. Plan to admit for pyelonephritis for IV fluids, IV antibiotics.ER physician spoke with [facility] urology they stated patient that could be treated with IV fluids, IV antibiotics and follow-up in 1 week for stent removal. Laboratory evaluation UA positive for UTI leukoesterase greater than 500, 1+ blood, nitrite negative, CBC WBCs unremarkable, mild left shift at 79.5, CMP potassium 2.6, AST elevated 54, mild hypokalemia 134, CT of the abdomen pelvis IMPRESSION: Left ureteral stent. Mild left hydronephrosis5 millimeter nonobstructing left renal calculus. Stranding adjacent to the left renal pelvis and left ureter may indicate infection7.5 centimeters cystic left ovarian mass. Ultrasound recommended Allergies Penicillins Allergy (Intermediate, Verified 10/01/16 08:00) SWELLING/RASH morphine Allergy (Mild, Verified 11/01/17 04:49) Hives/Rash tramadol Allergy (Verified 06/13/17 22:26) Itching nicotine [From Nicoderm CQ] Adverse Reaction (Verified 06/13/17 23:12) Itching/Hives/Rash Home Medications: ondansetron HCL [Zofran] 4 mg PO TID PRN #20 tablet 10/03/16 ALPRAZolam [Xanax*] 2 mg PO TID 06/13/17 Citalopram [Celexa*] 40 mg PO DAILY 06/13/17 Dextroamphetamine/Amphetamine [Adderall 10 mg Tablet] 30 mg PO BID 06/13/17 - Past Medical/Surgical History Diabetic: No -: Hepatitis-C, treated -: Chronic recurrent pancreatitis -: History DVT, treated 1996 -: Tobacco abuse -: Bipolar disorder -: Chronic pain -: Carpal tunnel syndrome -: Hysterectomy -: Carpal tunnel surgery Psychosocial/ Personal History: The patient is single. She has 1 child. She is currently disabled - Family History Mother -: Heart disease - Social History Alcohol use: No CD- Drugs: Yes Caffeine use: Yes Review of Systems 10-point ROS is otherwise unremarkable Physical Examination - Physical Exam General: Alert, In no apparent distress, Oriented x3 HEENT: Atraumatic, Normocephalic Neck: Supple, 2+ carotid pulse no bruit, JVD not distended Respiratory: Clear to auscultation bilaterally, Normal air movement Cardiovascular: No edema, Normal pulses, Regular rate/rhythm Gastrointestinal: Normal bowel sounds, Other (Left flank pain, mild suprapubic tenderness,) Musculoskeletal: No clubbing, No swelling Integumentary: No rashes, No breakdown Neurological: Normal speech, Normal strength at 5/5 x4 extr, Normal tone - Studies Laboratory Data (last 24 hrs) 09/19/22 09/19/22 09/19/22 18:53 18:53 18:53 WBC 9.50 Hgb 11.5 L Hct 34.6 L Plt Count 254 PT 12.2 INR 1.11 APTT 32.4 Sodium 134 L Potassium 2.6 L* BUN 8 Creatinine 0.83 Glucose 88 Total Bilirubin 0.4 AST 54 H ALT 54 Alkaline Phosphatase 101 Assessment and Plan - Plan Assessment plan pyelonephritis Recurrent urinary tract infections Hydronephrosis nonobstructing left renal calculus. Hypokalemia Transaminitis Tobacco use History of DVT Assessment plan pyelonephritis nonobstructing left renal calculus. Hydronephrosis Infectious disease consult for recurrent UTIs IV fluids, IV antibiotics, as needed antiemetics, as needed analgesics Urine culture, Patient needs to follow-up with [facility] urology in 1 week UA positive for UTI leukoesterase greater than 500, 1+ blood, nitrite negative, CBC WBCs unremarkable, mild left shift at 79.5, CT of the abdomen pelvis IMPRESSION: Left ureteral stent. Mild left hydronephrosis5 millimeter nonobstructing left renal calculus. Stranding adjacent to the left renal pelvis and left ureter may indicate infection7.5 centimeters cystic left ovarian mass. Ultrasound recommended Hypokalemia CMP potassium 2.6, Trend electrolytes replace as needed Transaminitis AST elevated 54, History of DVT Lovenox Diet full liquid advance as tolerated Full code DVT Lovenox Discharge Plan: Home Plan to discharge in: 24 Hours - Advance Directives Does patient have a Living Will: No Does patient have a Durable POA for Healthcare: No - Code Status/Comfort Care Code Status Assessed: Yes Code Status: Full Code Physician Review: Patient Assessed, Agree with Above Assessment and Plan Critical Care: No Time Spent Managing Pts Care (In Minutes): 50
[2022-09-19 23:00] VITALS: BMI 22.6
[2022-09-19] MEDS ORDERED: MORPHINE 4 MG/ML SYR IV ONE (23:38)
[2022-09-20] MEDS: KCL 20 MEQ/100 mL IVPB 20 MEQ/100 ML BAG IV SCH ×2 (00:06→03:21)
[2022-09-20] MEDS: NA CHLORIDE 0.9% 1,000 ML IV SCH ×3 (00:06→18:27)
[2022-09-20] MEDS ORDERED: PIPER TAZO 4.5 GM in NA CHLORIDE 0.9% 100 ML IV SCH (01:00)
[2022-09-20 03:43] LABS: Absolute Lymphocytes (CBC) 1.9 K/uL (0.7-4.9); Hematocrit 33.5 % (36.0-45.0); Lymphocytes % 27.2 % (15.3-44.8); MCV 85.7 fL (80-100); MPV 8.2 fL (7.6-11.3); Platelets 252 thou/uL (152-406); RBC Red Blood Cell Count 3.91 M/uL (3.86-4.86)
[2022-09-20 03:57] LABS: Magnesium 2.1 mg/dL (1.6-2.4); Potassium 3.6 mEq/L (3.5-5.1)
[2022-09-20] MEDS: ENOXAPARIN 40 MG/0.4 ML SQ SCH (08:04)
[2022-09-20] MEDS ORDERED: KCL 20 MEQ/100 mL IVPB 20 MEQ/100 ML BAG IV SCH (09:00)
[2022-09-20] MEDS: HYDROCODONE/APAP 5/325 MG TAB PO PRN (13:15)
[2022-09-20] MEDS: Levofloxacin 750mg IV 750 MG/150 ML BAG IV SCH (18:26)
--- NOTE | 2022-09-20 19:34 | P.PN ---
Subjective Date of Service: 09/20/22 Chief Complaint: Left Flank pain Patient is complaining of flank pain. She denies any nausea or vomiting and she is tolerating her diet. No recorded fever today. Physical Examination - Vital Signs Temperature: 97.6 F Blood Pressure: 109/74 Pulse: 78 Respirations: 16 Pulse Ox (%): 97 - Studies Laboratory Data (last 24 hrs) 09/20/22 09/20/22 09/20/22 03:23 03:23 00:25 WBC 7.10 Hgb 11.4 L Hct 33.5 L Plt Count 252 Sodium 139 138 Potassium 3.6 D 3.0 L D BUN 9 10 Creatinine 0.91 0.95 Glucose 103 103 Magnesium 2.1 2.0 Total Bilirubin AST ALT Alkaline Phosphatase 09/19/22 18:53 WBC Hgb Hct Plt Count Sodium 134 L Potassium 2.6 L* BUN 8 Creatinine 0.83 Glucose 88 Magnesium Total Bilirubin 0.4 AST 54 H ALT 54 Alkaline Phosphatase 101 Assessment And Plan - Plan Physical Exam General: Alert, In no apparent distress, Oriented x3 HEENT: Atraumatic, Normocephalic Neck: Supple, 2+ carotid pulse no bruit, JVD not distended Respiratory: Clear to auscultation bilaterally, Normal air movement Cardiovascular: No edema, Normal pulses, Regular rate/rhythm Gastrointestinal: Normal bowel sounds, Other (Left flank pain, mild suprapubic tenderness,) Musculoskeletal: No clubbing, No swelling Integumentary: No rashes, No breakdown Neurological: Normal speech, Normal strength at 5/5 x4 extr, Normal tone Diagnosis Acute pyelonephritis Recurrent urinary tract infections Hydronephrosis nonobstructing left renal calculus. Hypokalemia Transaminitis Tobacco use History of DVT Assessment plan pyelonephritis nonobstructing left renal calculus. Hydronephrosis Infectious disease consult for recurrent UTIs CT of the abdomen pelvis IMPRESSION: Left ureteral stent. Mild left hydronephrosis5 millimeter nonobstructing left renal calculus. Continue IV fluids, IV antibiotics, as needed antiemetics, as needed analgesics Urine culture is pending Patient needs to follow-up with [facility] urology in 1 week. As needed analgesic. Hypokalemia CMP potassium 2.6, Trend electrolytes replace as needed History of DVT Lovenox Diet full liquid advance as tolerated Full code DVT Lovenox Discharge Plan: Home.
[2022-09-20] MEDS: MORPHINE 2 MG/ML SYR IV PRN (21:15)
[2022-09-21] MEDS: MORPHINE 2 MG/ML SYR IV PRN ×2 (02:52→20:37)
[2022-09-21] MEDS: NA CHLORIDE 0.9% 1,000 ML IV SCH ×2 (04:00→12:10)
[2022-09-21 04:18] LABS: Potassium 3.6 mEq/L (3.5-5.1)
[2022-09-21] MEDS ORDERED: POTASSIUM CL SA 10 MEQ TAB PO ONE (09:00)
[2022-09-21] MEDS ORDERED: VANCOMYCIN 1.25 GM in NA CHLORIDE 0.9% 250 ML IVPB SCH (09:00)
[2022-09-21] MEDS: ENOXAPARIN 40 MG/0.4 ML SQ SCH (09:20)
[2022-09-21] MEDS: VANCOMYCIN 1 GM in NA CHLORIDE 0.9% 250 ML IVPB SCH (09:20)
[2022-09-21] MEDS: HYDROCODONE/APAP 5/325 MG TAB PO PRN (09:25)
--- NOTE | 2022-09-21 15:36 | CON ---
History Of Present Illness: This is a 52-year-old female coming in with multiple medical problems in cluding depression, hepatitis C, chronic pancreatitis, ADD, ADHD, DVT of the left lower extremity, co laurie in with left flank pain. Patient was found to have 2 kidney stones in the past and a stent was placed at [facility] in [place] for that. Patient was supposed to have a followup, but she could not go as she was busy with her work. Past Medical History: As per HPI. Social History: Tobacco positive. Alcohol positive. Medications: Patient is currently on Levaquin and vancomycin. See MAR for other medications. Allergies: PENICILLIN. Review of Systems: A 10-point review was performed. Physical Examination: General: This is a 52-year-old female, lying in bed, not in any acute cardiopulmonary distress. Vital Signs: Temperature 97, pulse 76, respirations 16, blood pressure 115/74. HEENT: Unremarkable. Neck: Supple. Lungs: Basal crackles. Heart: S1, S2. Regular. Abdomen: Soft. Bowel sounds present. Extremities: No edema. Laboratory Data: Shows WBC 7.1, hemoglobin 11.4, platelets 252. Chemistry shows BUN of 11, creatini ne 0.8. Micro data shows blood cultures are pending. Urine cultures showing 100,000 wbc's with 4+ c oag-positive staph. Assessment/plan: Staph urosepsis with history of kidney stones. We will continue antibiotic for 10 days, can be switched to oral if not resistant. Recommend switching it to Cipro rather than Levaquin . We will follow the patient closely. Follow up with urologist at [place]. Continue fluid intake . We will follow the patient closely. NF/MODL Voice ID: [id number] Report ID: [id number]
--- NOTE | 2022-09-21 15:53 | P.PN ---
Subjective Date of Service: 09/21/22 Chief Complaint: Left Flank pain Patient is complaining of constipation She has been tolerating her diet. No fever. Physical Examination - Vital Signs Temperature: 97.8 F Blood Pressure: 119/70 Pulse: 74 Respirations: 16 Pulse Ox (%): 97 Assessment And Plan - Plan Physical Exam General: Alert, In no apparent distress, Oriented x3 HEENT: Atraumatic, Normocephalic Neck: Supple, 2+ carotid pulse no bruit, JVD not distended Respiratory: Clear to auscultation bilaterally, Normal air movement Cardiovascular: No edema, Normal pulses, Regular rate/rhythm Gastrointestinal: Normal bowel sounds, Other (Left flank pain, mild suprapubic tenderness,) Musculoskeletal: No clubbing, No swelling Integumentary: No rashes, No breakdown Neurological: Normal speech, Normal strength at 5/5 x4 extr, Normal tone Diagnosis Acute pyelonephritis Recurrent urinary tract infections Hydronephrosis nonobstructing left renal calculus. Hypokalemia Transaminitis Tobacco use History of DVT Assessment plan pyelonephritis nonobstructing left renal calculus. Hydronephrosis Infectious disease consult for recurrent UTIs Urine culture is growing coagulase positive staph. Continue IV Levaquin. IV vancomycin added. Follow urine culture organism identification and sensitivity. Patient needs to follow-up with [facility] urology in 1 week. As needed analgesic. Hypokalemia Monitor and replete potassium as needed. History of DVT Most recent venous Doppler of lower extremities were negative for DVT. Repeat venous Doppler. Diet: Regular diet Full code DVT Lovenox Discharge Plan: Home.
[2022-09-21] MEDS: Levofloxacin 750mg IV 750 MG/150 ML BAG IV SCH (17:23)
--- NOTE | 2022-09-21 18:14 | EKG ---
Test Date: 2022-09-19 Test Time: 21:20:09 Charge Coordinator: RV MEASUREMENT RESULTS: Intervals: Rate: 83 MN: 114 QRSD: 66 QT: 358 QTc: 420 [place]: P: 47 MN: 114 QRS: 44 T: 51 INTERPRETIVE STATEMENTS: Normal sinus rhythm Nonspecific ST and T wave abnormality Abnormal ECG No previous ECG available for comparison Electronically Signed On 09-21-22 18:11:35 CDT by Mihir Demarco
[2022-09-21] MEDS: POLYETHYL GLY 3350 17 GM/DOSE PO SCH (20:37)
[2022-09-22] MEDS: VANCOMYCIN 1 GM in NA CHLORIDE 0.9% 250 ML IVPB SCH (02:11)
[2022-09-22 03:46] LABS: Potassium 3.8 mEq/L (3.5-5.1)
[2022-09-22] MEDS: NA CHLORIDE 0.9% 1,000 ML IV SCH (07:18)
--- NOTE | 2022-09-22 07:24 | RAD REPORT ---
EXAM DESCRIPTION: US - Extrem Venous W Compress Richard - 09/22/2022 12:16 am CLINICAL HISTORY: History of DVT Bilateral leg edema and swelling. COMPARISON: Extrem Venous W Compress Richard dated 10/15/2021 TECHNIQUE: Real-time sonographic interrogation of the left and right lower extremity deep venous sys tems was performed. FINDINGS: Normal compressibility, flow augmentation, phasic flow and spontaneous flow is identified in both the left and right lower extremity deep venous systems. IMPRESSION: No sonographic evidence of left or right lower extremity deep venous thrombosis.
[2022-09-22] MEDS ORDERED: POTASSIUM CL SA 10 MEQ TAB PO ONE (09:00)
[2022-09-22] MEDS: ENOXAPARIN 40 MG/0.4 ML SQ SCH (09:03)
[2022-09-22] MEDS: POLYETHYL GLY 3350 17 GM/DOSE PO SCH (09:03)
[2022-09-22 09:15] VITALS: BP 140/84; TEMP 98.5
--- NOTE | 2022-09-22 09:40 | P.DS ---
Admission Date: 09/20/22 Discharge Date: 09/22/22 Disposition: ROUTINE DISCHARGE Reason for Admission: Left Flank pain Brief History of Present Illness: 52-year-old female with a past medical history depression, hepatitis C, chronic pancreatitis, ADD, ADHD, prior history of DVT left lower extremity presented to the emergency room with left flank pain. She reported left flank pain. She reported recent ureteral stent from [facility], and was supposed to have ureteral stent removed but she does not have insurance and did not keep her follow-up appointment. She reported associated fever and chills. Laboratory evaluation UA positive for UTI leukoesterase greater than 500, 1+ blood, nitrite negative, CBC WBCs unremarkable, mild left shift at 79.5, CMP potassium 2.6, AST elevated 54, mild hypokalemia 134, CT of the abdomen pelvis IMPRESSION: Left ur eteral stent. Mild left hydronephrosis5 millimeter nonobstructing left renal calculus. Stranding adjacent to the left renal pelvis and left ureter may indicate infection, 7.5 centimeters cystic left ovarian mass.R Plan to admit for pyelonephritis for IV fluids, IV antibiotics. ER physician spoke with [facility] urology they stated patient that could be treated with IV fluids, IV antibiotics and follow-up in 1 week for stent removal. Patient hospitalized for further management. Hospital Course: Diagnosis Acute pyelonephritis Recurrent urinary tract infections Hydronephrosis nonobstructing left renal calculus. Hypokalemia Transaminitis Tobacco use History of DVT Patient admitted to the medical floor and the following medical problems addressed: Acute pyelonephritis nonobstructing left renal calculus. Hydronephrosis Infectious disease consuled for recurrent UTIs Urine culture is grew MSSA. Patient treated with IV Levaquin and IV vancomycin Infectious disease recommending oral Bactrim for 2 weeks as outpatient treatment Patient informed to follow-up with [facility] urology in 1 week for ureteral stent removal. Ovarian cyst Patient was informed of the presence of ovarian cyst and the need for further evaluation as outpatient with a special technical operations officer. History of DVT Most recent venous Doppler of lower extremities were negative for DVT. Repeat venous Doppler was negative for DVT. Tobacco use Smoking cessation advised. Vital Signs/Physical Exam: Temp Pulse Resp BP Pulse Ox 98.5 F 86 16 140/84 94 09/22/22 08:00 09/22/22 08:00 09/22/22 08:00 09/22/22 08:00 09/22/22 08:00 General: Alert, In no apparent distress, Oriented x3 HEENT: Mucous membr. moist/pink Neck: Supple, JVD not distended Respiratory: Clear to auscultation bilaterally, Normal air movement Cardiovascular: No edema, Regular rate/rhythm, Normal S1 S2 Gastrointestinal: Normal bowel sounds, Soft and benign, Non-distended, No tenderness Musculoskeletal: No swelling Integumentary: No rashes, No cyanosis Neurological: Normal strength at 5/5 x4 extr Laboratory Data at Discharge: WBC 7.10 thou/uL (4.3-10.9) 09/20/22 03:23 Hgb 11.4 g/dL (12.0-15.0) L 09/20/22 03:23 Hct 33.5 % (36.0-45.0) L 09/20/22 03:23 Plt Count 252 thou/uL (152-406) 09/20/22 03:23 PT 12.2 SECONDS (9.5-12.5) 09/19/22 18:53 INR 1.11 09/19/22 18:53 APTT 32.4 SECONDS (24.3-36.9) 09/19/22 18:53 Sodium 137 mEq/L (136-145) 09/22/22 02:47 Potassium 3.8 mEq/L (3.5-5.1) 09/22/22 02:47 BUN 13 mg/dL (7-18) 09/22/22 02:47 Creatinine 0.71 mg/dL (0.55-1.02) 09/22/22 02:47 Glucose 107 mg/dL (74-106) H 09/22/22 02:47 Magnesium 2.1 mg/dL (1.6-2.4) 09/20/22 03:23 Total Bilirubin 0.4 mg/dL (0.2-1.0) 09/19/22 18:53 AST 54 U/L (15-37) H 09/19/22 18:53 ALT 54 U/L (13-56) 09/19/22 18:53 Alkaline Phosphatase 101 U/L (45-117) 09/19/22 18:53 Home Medications: ondansetron HCL [Zofran] 4 mg PO TID PRN #20 tablet 10/03/16 ALPRAZolam [Xanax*] 2 mg PO TID 06/13/17 Citalopram [Celexa*] 40 mg PO DAILY 06/13/17 Dextroamphetamine/Amphetamine [Adderall 10 mg Tablet] 30 mg PO BID 06/13/17 Hydrocodone 7.5/APAP 325 [Lindley 7.5/325 mg] 1 tab PO Q6H PRN #15 tab 09/22/22 Polyethyl Gly 3350 [Glycolax*] 17 gm PO BID PRN #30 udbot 09/22/22 Smz./Tmp. [Bactrim Ds 800 MG/160 MG] 1 tab PO BID #28 tab 09/22/22 New Medications: Smz./Tmp. [Bactrim Ds 800 MG/160 MG] 1 tab PO BID #28 tab Polyethyl Gly 3350 [Glycolax*] 17 gm PO BID PRN #30 udbot PRN Reason: Constipation Hydrocodone 7.5/APAP 325 [Lindley 7.5/325 mg] 1 tab PO Q6H PRN #15 tab PRN Reason: Pain Diet: Regular Activity: Ad shantelle Followup: NONE,NONE [Primary Care Provider] - Time spent managing pt's care (in minutes): 38
[2022-09-22 10:04] VITALS: O2SAT 94
== END 2022-09-22 11:06 | disposition home or self-care (01) | DRG 699 ==
LOC: ER 17:48 → 2ND 20:58 → OBSVTOIN 09-20 12:17
PROVIDERS: ADMIT Internal Medicine; ATTEND Internal Medicine
DX: T83.592A Infection and inflammatory reaction due to indwelling ureteral stent, initial encounter (principal); N13.6 Pyonephrosis; E87.6 Hypokalemia; K59.00 Constipation, unspecified; F90.9 Attention-deficit hyperactivity disorder, unspecified type; N83.209 Unspecified ovarian cyst, unspecified side; B95.61 Methicillin susceptible Staphylococcus aureus infection as the cause of diseases classified elsewhere; R74.01 Elevation of levels of liver transaminase levels; Z88.0 Allergy status to penicillin; Z88.5 Allergy status to narcotic agent; Z98.51 Tubal ligation status; Z79.899 Other long term (current) drug therapy; Z90.710 Acquired absence of both cervix and uterus; Z86.718 Personal history of other venous thrombosis and embolism; Y84.8 Other medical procedures as the cause of abnormal reaction of the patient, or of later complication, without mention of misadventure at the time of the procedure
CPT/HCPCS: 36415; 74176; 76377; 80048; 80053; 81001; 83605; 83735; 85025; 85610; 85730; 87040; 87077; 87086; 87088; 87186; 93005; 93970; 96365; 96366; 96375; 99285; J1650; J2270; J2405; J3480; J7030; J7050

== ENCOUNTER 2022-11-02 10:57 | Emergency (ER) | payer SELFPAY ==
--- OUTSIDE RECORDS SUMMARY | 2022-11-02 11:02 | XMS REPORT | Continuity of Care Document ---
:1970 Author Organization [facility] t Address [address] [place] [address]. [address] [place] [address] Care Team Providers Name Role Phone No, Pcp [facility] [place] Primary Care Physician Unavailable Ash Elaine MD Attending Clinician LEONARD ROSENTHAL Attending Clinician Unavailable Leonard Rosenthal DO Attending Clinician Taylor Real RN Attending Clinician Unavailable MILES LYNN Attending Clinician Unavailable Miles Lynn MD Attending Clinician Steve Martinez MD Attending Clinician Raúl Neri MD Attending Clinician Nida Kiser NP Attending Clinician NIDA KISER Attending Clinician Unavailable SUMAYA Attending Clinician Unavailable WILLY FARNSWORTH Attending Clinician Unavailable LEONARD ROSENTHAL Admitting Clinician Unavailable MILES LYNN Admitting Clinician Unavailable Miles Lynn MD Admitting Clinician SUMAYA Admitting Clinician Unavailable WILLY FARNSWORTH Admitting Clinician Unavailable Payers Payer Name Policy Type Policy Number Effective Date Expiration Date S [facility] [place]: [id number] 2015 ActiveGift 00:00:00 [place] [id number] ([place]ICAID[place] Problems Condition Condition Condition Status Onset Resolution Last Treating Co mments Source Name Details Category Date Date Treatment Clinician Date Ureteral Ureteral Disease Active Unive rs stone stone 6-03 ity of 00:00: [place] 00 Medical Branch Rectal Rectal Disease Active 2020-02 Univers bleeding bleeding 2-16 ity of 00:00: [place] [address] Medical Branch Other Other Disease Active 2020-02 Univers constipati constipati 2-16 it y of on on 00:00: [place] [facility] Loss of Loss of Disease Active 2020-02 Univers weight weight 2-16 ity of 00:00: [place] [facility] Nausea and Nausea and Disease Active 2020-02 U nivers vomiting, vomiting, 2-16 ity of intractabi [place] 00 Medical vomiting vomiting Branch not not specified, specified, unspecifie unspecifie d vomiting d vomiting type type Vertigo Vertigo Disease Active 2020-02 Univers 2-16 ity of 00:00: [place] [address] Medical Branch Methamphet Methamphet Disease Recurre [facility] [...] (BMI 9-30 ity of 30-39.9) 30-39.9) 00:00: [place] [address] Medical Branch Allergies, Adverse Reactions, Alerts Allergy Allergy Status Severity Reaction(s) Onset Inactive Treating Comm ents Source Name Type Date Date Clinician Penicill Propensi Active Hives, [facility] adverse Rash 00:00: Medical reaction 00 Center s Morphine Propensi Active Hives, 2018- [facility] to Itching 9- [facility] adverse 00:00: Medical reaction 00 Center s Nicotine Propensi Active Itching, 2018-[address] [facility] ty to Rash 9 [facility] adverse 00:00: Medical reaction 00 Center s Penicill Propensi Active Hives, 2018- [facility] to Itching, 9 [facility] adverse Rash 00:00: Medical reaction 00 Center s Tramadol Propensi Active Hives, 2018- [facility] to Itching, 9 [facility] adverse Rash 00:00: Medical reaction 00 Center s Meperidi Propensi Active Rash 2015- Univer s ne ty to 5-13 ity of adverse 00:00: [place] reaction Medical s Branch Opioids Propensi Active Rash [...] Medical S Branch PENICILL Drug Active N/V 2015- Univers INS Class 5-13 ity of 00:00: [place] 00 Medical [place] Family History Family Member Diagnosis Comments Start Date Stop Date Source Natural mother No Known Problem [facility] Social History Social Habit Start Date Stop Date Quantity Comments Source History of tobacco Smokes tobacco Un iversity of use daily [facility] Gender identity Universit y of [facility] Sexual orientation Univer sity [facility] History of Social 2022-08-01 2022-08-01 Univers ity of function 00:00:00 00:00:00 [facility] Tobacco use and 2022-07-16 2022-07-16 Smokeless Universit y of exposure 00:00:00 00:00:00 tobacco non-user [facility] Alcohol intake 2017-11-06 2017-11-[address] [facility] [facility] 00:00:00 00:00:00 non-drinker of Medical Ce nter alcohol (finding) Cigarette 2017-11-02 2017-11-02 ADITYA Banda pack-years 00:00:00 00:00:00 [facility] Cigarettes smoked 2017-11-02 2017-11-[address] [facility] current (pack per 00:00:00 00:00:00 Medical Center day) - Reported Sex Ass[birth year] At [birth year] ADITYA Ayoubs 00:00:00 00:00:00 [facility] Smoking Status Start Date Stop Date Source Smokes tobacco daily 2022-07-16 00:00:00 Univers ity [facility] Medications Ordered Filled Start Stop Current Ordering Indication Dosage Frequency Signature Comments Components Source Medication Medication Date Date Medication? Clinician (SIG) Name Name sulfamethox 2022- No [id number] 1{tbl} Take 1 Univers azole-trime 08-29 tablet by it y 00:00: 04:59 mouth in [place] (BACTRIM 00 :00 the [facility]) 800-160 morning Branc h mg per and 1 tablet tablet in the evening. Do all this for 5 days. oxyBUTYnin Yes 5mg 5 mg, Univer s chloride 08-01 Oral, BID, ity o f (DITROPAN) 13:00: [place] dose [place] tablet 5 mg 00 on [facility] Medica l 08/01/22 at Branch 0800, Until Discontinu ed, Routine ketorolac 2022- No 15mg 15 mg, Unive rs (TORADOL) 08-01 [...] 500 mg 00 First dose Medical on [place] 07/31/22 at 2345, Until Discontinu ed, [...] 00 :00 dose, On Medical 1,000 mg [place] 07/31/22 at 2245, ALEKSANDR
Re ason for [...] 00 :00 dose, On Medi bridgette mg [place] Branch 07/31/22 at 2045, Routine ibuprofen 0 Yes [id number] 600mg Take 1 U nivers 600 mg 6-04 tablet by ity of tablet 00:00: mouth [place] 00 every 6 Medical (six) Branch hours as needed (Alternate with Tylenol). acetaminoph Yes [id number] 650mg Take 1 Univers en (TYLENOL 6-04 tablet by ity of 8 HOUR) 650 00:00: mouth [place] mg CR 00 every 8 Medical tablet (eight) Branch hours as needed for Pain (Alternate with Ibuprofen every 3 hours). fluconazole 2023-0 Yes [id number] 150mg Take 1 Univers 150 mg 6-04 tablet by ity of tablet 00:00: mouth as [place] 00 needed Medical (Vaginal Branch candidiasi s). ibuprofen 2023-0 Yes [id number] 600mg Take 1 U nivers 600 mg 6-04 tablet by ity of tablet 00:00: mouth [place] 00 every 6 Medical (six) Branch hours as needed (Alternate with Tylenol). acetaminoph 2023-0 Yes [id number] 650mg Take 1 Univers en (TYLENOL 6-04 tablet by ity of 8 HOUR) 650 00:00: mouth [place] mg CR 00 every 8 Medical tablet (eight) Branch hours as needed for Pain (Alternate with Ibuprofen every 3 hours). fluconazole 3-0 Yes [id number] 150mg Take 1 Univers 150 mg 6-04 tablet by ity of tablet 00:00: mouth as [place] 00 needed Medical (Vaginal Branch candidiasi s). ibuprofen 3-0 Yes [id number] 600mg Take 1 U nivers 600 mg 6-04 tablet by ity of tablet 00:00: mouth [place] 00 every 6 Medical (six) Branch hours as needed (Alternate with Tylenol). acetaminoph 2023-0 Yes [id number] 650mg Take 1 Univers en (TYLENOL 6-04 tablet by ity of 8 HOUR) 650 00:00: mouth [place] mg CR 00 every 8 Medical tablet (eight) Branch hours as needed for Pain (Alternate with Ibuprofen every 3 hours). fluconazole 3-0 Yes [id number] 150mg Take 1 Univers 150 mg 6-04 tablet by ity of tablet 00:00: mouth as [place] 00 needed Medical (Vaginal Branch candidiasi s). ibuprofen 2023-0 Yes [id number] 600mg Take 1 U nivers 600 mg 6-04 tablet by ity of tablet 00:00: mouth [place] 00 every 6 Medical (six) Branch hours as needed (Alternate with Tylenol). acetaminoph 2023-0 Yes [id number] 650mg Take 1 Univers en (TYLENOL 6-04 tablet by ity of 8 HOUR) 650 00:00: mouth [place] mg CR 00 every 8 Medical tablet (eight) Branch hours as needed for Pain (Alternate with Ibuprofen every 3 hours). fluconazole 2023-0 Yes [id number] 150mg Take 1 Univers 150 mg 6-04 tablet by ity of tablet 00:00: mouth as [place] 00 needed Medical (Vaginal Branch candidiasi s). ibuprofen 2023-0 Yes [id number] 600mg Take 1 U nivers 600 mg 6-04 tablet by ity of tablet 00:00: mouth [place] 00 every 6 Medical (six) Branch hours as needed (Alternate with Tylenol). acetaminoph 2023-0 Yes [id number] 650mg Take 1 Univers en (TYLENOL 6-04 tablet by ity of 8 HOUR) 650 00:00: mouth [place] mg CR 00 every 8 Medical tablet (eight) Branch hours as needed for Pain (Alternate with Ibuprofen every 3 hours). fluconazole 3-0 Yes [id number] 150mg Take 1 Univers 150 mg 6-04 tablet by ity of tablet 00:00: mouth as [place] 00 needed Medical (Vaginal Branch candidiasi s). ibuprofen 3-0 Yes [id number] 600mg Take 1 U nivers 600 mg 6-04 tablet by ity of tablet 00:00: mouth [place] 00 every 6 Medical (six) Branch hours as needed (Alternate with Tylenol). acetaminoph 3-0 Yes [id number] 650mg Take 1 Univers en (TYLENOL 6-04 tablet by ity of 8 HOUR) 650 00:00: mouth [place] mg CR 00 every 8 Medical tablet (eight) Branch hours as needed for Pain (Alternate with Ibuprofen every 3 hours). fluconazole 3-0 Yes [id number] 150mg Take 1 Univers 150 mg 6-04 tablet by ity of tablet 00:00: mouth as [place] 00 needed Medical (Vaginal Branch candidiasi s). sulfamethox 2022-0 2022- No [id number] 1{tbl} Take 1 Univers azole-trime 6-04 06-19 tablet by it y of thoprim 00:00: 04:59 mouth in [place] (BACTRIM 00 :00 the Medical DS) 800-160 morning Branc h mg per and 1 tablet tablet in the evening. Do all this for 14 days. sulfamethox 2022-0 2022- No [id number] 1{tbl} Take 1 Univers azole-trime 6-04 06-19 tablet by it y of thoprim 00:00: 04:59 mouth in [place] (BACTRIM 00 :00 the Medical DS) 800-160 morning Branc h mg per and 1 tablet tablet in the evening. Do all this for 14 days. sulfamethox 2022-0 202- No [id number] 1{tbl} Take 1 Univers azole-trime 6-05 19-19 tablet by it y of thoprim 00:00: 04:59 mouth in [place] (BACTRIM 00 :00 the Medical DS) 800-160 morning Branc h mg per and 1 tablet tablet in the evening. Do all this for 14 days. sulfamethox 2022-0 202- No [id number] 1{tbl} Take 1 Univers azole-trime 6-05 19-19 tablet by it y of thoprim 00:00: 04:59 mouth in [place] (BACTRIM 00 :00 the Medical DS) 800-160 morning Branc h mg per and 1 tablet tablet in the evening. Do all this for 14 days. ketorolac 2022-0 2022- No 15mg 15 mg, Unive rs (TORADOL) 07-1608 Slow IV ity of injection 18:21: 04:59 [place], [place] 15 mg 00 :00 Q6HPRN, 4 Medical doses, Branch Starting on 07/16/22 at 1321, Until 07/20/22 at 2359, Routine, Pain (scale 7-10) ketorolac 2022-0 2022- No 15mg 15 mg, Unive rs (TORADOL) 07-16 Slow IV ity of injection 18:21: 21:43 Push, [place] 15 mg 00 :09 Q6HPRN, 4 Medical doses, Branch Starting on 07/16/22 at 1321, Until 07/17/22 at 1643, Routine, Pain (scale 7-10) acetaminoph 2022-0 Yes 650mg 650 mg, Un rosalie en [...] On 07/16/22 at 0900, STAT NaCl 0.9% 2023-0 2023- No 500mL at 999 Univ ers (NS) bolus 07-16 mL/hr, 500 it y of infusion 14:00: 18:01 mL, IV [place] 500 mL 00 :00 Piggyback, Medical ONCE, 1 Branch dose, On 07/16/22 at 0900, STAT cefTRIAXone 2022- No 1000mg 1,000 mg, Univers (ROCEPHIN) 07-16 IV ity of 1,000 mg in 13:30: 13:46 [facility], [place] NaCl 0.9% 00 :27 Q24H ABX, Medic [...] ity of 1,000 mg in 13:30: 13:46 [facility], [place] NaCl 0.9% 00 :27 Q24H ABX, Medic [...] 1643, Routine, Nausea and Vomiting (N/V) acetaminoph 2023-0 2023- No 1000mg 1,000 mg, Univers en 07-16 Oral, ity of (TYLENOL) 10:00: 09:09 ONCE, 1 [place] tablet 00 :00 dose, On Medical 1,000 mg 07/16/22 Bran h at 0500, Routine FENTanyl PF 2022- No 50ug 50 mcg, Un rosalie (SUBLIMAZE 07-16 Slow IV ity o f (PF)) 08:15: 08:54 [place], [place] injection 00 :00 ONCE, 1 Medical 50 mcg dose, On Branch 07/16/22 at 0315, STAT FENTanyl PF 2022- No 50ug 50 mcg, Un rosalie (SUBLIMAZE 07-16 Slow IV ity o f (PF)) 06:30: 06:02 [place], [place] injection 00 :00 ONCE, 1 Medical 50 mcg dose, On Branch 07/16/22 at 0130, Routine NaCl 0.9% No 1000mL at 999 Uni vers (NS) [...] On Branch 07/15/22 at 2330, Routine cefTRIAXone No 1000mg 1,000 mg, Univers (ROCEPHIN) 07-16 IV ity of 1,000 mg in 04:15: 05:04 Piggyback, [place] NaCl 0.9% 00 :00 ONCE, 1 Medical (NS) 100 mL dose, On [facility] MINI-BAG 07/15/22 at 2315, Administer over 30 Minutes, 100 mL
Reas on for Anti-Infec tive: Documented Infection< br>Documen nusrat Infection Site: Urine<br&g t;Duration of Therapy: Other (see Comments) ondansetron 0 2022- No 4mg 4 mg, Slow Univers (ZOFRAN 07-16 06-03 IV Push, ity of (PF)) 04:15: 04:42 ONCE, 1 [place] injection 4 00 :00 dose, On Medi bridgette mg 07/15/22 Branch at 2315, ALEKSANDR ALPRAZolam Yes anxiety 2mg Q.[id number] Take [address] [facility] (XANAX) 2 9- [id number] by mouth 3 [facility] MG tablet 20:00: 3D (three) Medic al 17 times Center daily. ALPRAZolam Yes anxiety 2mg Q.[id number] Take [address] (XANAX) 2 9- [id number] by mouth 3 [facility] MG tablet 20:00: 3D (three) Medic al 17 times Center daily. citalopram Yes depression 40mg QD Take [address] (CELEXA) 40 9-22 associated by mouth [facility] MG tablet 20:00: with daily. Medica l 17 bipolar Center disorder citalopram Yes depression 40mg QD Take [address] (CELEXA) 40 9-22 associated by mouth [facility] MG tablet 20:00: with daily. Medica l 17 bipolar Center disorder aspirin 81 Yes 81mg QD Take [address] MG chewable 9-22 by mouth Luke s tablet 20:00: daily. [address] omeprazole Yes 40mg QD Take [address] (PRILOSEC) 9-22 by mouth [facility] 40 MG 20:00: daily. Medical [address] dextroamphe Yes 30mg Q.5D Take [address] tamine-amph 9-22 by mouth 2 Ebony kes etamine 30 20:00: (two) Medica l mg Tab 17 times Center daily. aspirin 81 Yes 81mg QD Take [address] MG chewable 9-22 by mouth Luke s tablet 20:00: daily. [address] omeprazole Yes 40mg QD Take [address] (PRILOSEC) 9-22 by mouth [facility] 40 MG 20:00: daily. Medical capsule [address] [place] [address] dextroamphe Yes 30mg Q.5D Take [address] tamine-amph 9-22 by mouth 2 Ebony kes etamine 30 20:00: (two) Medica l mg Tab 17 times Center daily. ALPRAZolam 2018-0 Yes anxiety 2mg Q.[id number] Take [address] (XANAX) 2 9-22 [id number] by mouth 3 [facility] MG tablet 20:00: [...] by mouth Luke s tablet 20:00: daily. [address] omeprazole 0 Yes 40mg QD Take [address] (PRILOSEC) 9-22 by mouth [facility] 40 MG 20:00: daily. Medical capsule [address] [place] [address] dextroamphe 0 Yes 30mg Q.5D Take [address] tamine-amph 9-22 by mouth 2 Ebony kes etamine 30 20:00: (two) Medica l mg Tab 17 times Center daily. ALPRAZolam 0 Yes anxiety 2mg Q.[id number] Take [address] (XANAX) 2 9-22 [id number] by mouth 3 [facility] MG tablet 20:00: 3D (three) Medic al 17 times Center daily. citalopram 0 Yes depression 40mg QD Take [address] (CELEXA) 40 9-22 associated by mouth [facility] MG tablet 20:00: with [facility]. [facility] Center disorder aspirin 81 2018-0 Yes 81mg QD Take [address] MG chewable 9-22 by mouth Luke s tablet 20:00: daily. [address] omeprazole 2018-0 Yes 40mg QD Take [address] (PRILOSEC) 9-22 by mouth [facility] 40 MG 20:00: daily. Medical capsule [address] [place] [address] dextroamphe 2018-0 Yes 30mg Q.5D Take [address] tamine-amph 9-22 by mouth 2 Ebony kes etamine 30 20:00: (two) Medica l mg Tab 17 times Center daily. ALPRAZolam Yes anxiety 2mg Q.[id number] Take [address] (XANAX) 2 11-04 [id number] by mouth 3 [facility] MG tablet 20:00: [...] mouth Luke s tablet 20:00: daily. Medical [address] [place] [address] omeprazole Yes 40mg QD Take [address] (PRILOSEC) 11-04 by mouth [facility] 40 MG 20:00: daily. Medical [address] dextroamphe Yes 30mg Q.5D Take [address] tamine-amph 11-04 by mouth 2 Ebony kes etamine 30 20:00: (two) Medica l mg Tab 17 times Center daily. Vital Signs Vital Name Observation Time Observation Value Comments Source Heart rate 2022-08-01 03:42:00 88 /min [facility] Oxygen saturation in 2022-08-01 03:42:00 98 /min [facility] Arterial blood by [facility] [place] [facility] Pulse oximetry Branch Systolic blood 2022-08-01 03:00:00 114 [facility]Hg[facility] Diastolic blood 2022-08-01 03:00:00 69 mm[Hg] [facility] Respiratory rate 2022-08-01 03:00:00 16 /min [facility] Body temperature 2022-08-01 01:41:00 37.22 [place] [facility] Body height 2022-08-01 01:41:00 154.9 cm [facility] Body weight 2022-08-01 01:41:00 68.04 kg [facility] BMI 2022-08-01 01:41:00 28.34 kg/m2 [facility] Systolic blood 2022-07-17 12:41:00 118 mm[Hg] Univer sity [facility] Diastolic blood 2022-07-17 12:41:00 70 mm[Hg] Unive rsity of pressure [place] [facility] Heart rate 2022-07-17 12:41:00 85 /min Universi ty [facility] [place] [facility] Body temperature 2022-07-17 12:41:00 36.56 [place] Univ ersity of [place] [facility] Respiratory rate 2022-07-17 12:41:00 16 /min Univ ersity of [place] [facility] Oxygen saturation in 2022-07-17 12:41:00 98 /min University of Arterial blood by [place] [employer] bridgette Pulse oximetry Branch Body height 2022-07-16 10:32:00 154.9 cm Universi ty of [place] [facility] Body weight 2022-07-16 10:32:00 68.04 kg Universi ty of [place] [facility] BMI 2022-07-16 10:32:00 28.34 kg/m2 Universi ty of [place] [facility] Systolic blood 2022-07-16 15:30:00 103 mm[Hg] Univer sity of pressure [place] [facility] Diastolic blood 2022-07-16 15:30:00 63 mm[Hg] Unive rsity of pressure [place] [facility] Respiratory rate 2022-07-16 15:30:00 11 /min Univ ersity of [place] [facility] Oxygen saturation in 2022-07-16 15:30:00 100 /min University of Arterial blood by [place] [employer] bridgette Pulse oximetry Branch Heart rate 2022-07-16 15:12:00 79 /min Universi ty of [place] [facility] Body temperature 2022-07-16 15:12:00 36.22 [place] Univ ersity of [place] [facility] Body height 2022-07-16 10:32:00 154.9 cm Universi ty of [place] [facility] Body weight 2022-07-16 10:32:00 68.04 kg Universi ty of [place] [facility] BMI 2022-07-16 10:32:00 28.34 kg/m2 Universi ty [facility] [place] [facility] Systolic blood 2022-07-16 09:00:00 118 mm[Hg] Univer sity of pressure [place] [facility] Diastolic blood 2022-07-16 09:00:00 77 mm[Hg] Unive rsity of pressure [place] [facility] Heart rate 2022-07-16 09:00:00 98 /min Universi ty [facility] [place] [facility] Body temperature 2022-07-16 09:00:00 37.78 [place] [facility] Respiratory rate 2022-07-16 09:00:00 25 /min [facility] Oxygen saturation in 2022-07-16 09:00:00 95 /min [facility] Arterial blood by [facility] [place] [facility] Pulse oximetry [place] Body height 2022-07-16 02:56:00 154.9 cm [facility] Body weight 2022-07-16 02:56:00 68.04 kg [facility] BMI 2022-07-16 02:56:00 28.34 kg/m2 [facility] Procedures Procedure Date / Time Performed Performing Clinician Sourc e ADC CLC OR LCC ONLY - 2022-08-01 03:52:00 Leonard Rosenthal [facility] COMP. METABOLIC PANEL 2022-08-01 02:59:00 Leonard Rosenthal [facility] ([id number]) [facility] CT ABDOMEN PELVIS WO 2022-08-01 02:40:46 Leonard Rosenthal [facility] CONTRAST [facility] CBC WITH DIFF 2022-08-01 02:04:00 Rosenthal, [facility] URINALYSIS 2022-08-01 02:04:00 [facility] CONSENT/REFUSAL FOR 2022-08-01 01:34:42 Doctor Unassigned, No Un [facility] DIAGNOSIS AND Name Medical Branch TREATMENT [place] TIME OR 2022-07-16 15:09:00 [facility] FL TIME OR 2022-07-16 15:09:00 [facility] (NON-REPORTABLE) [facility] URINE CULTURE 2022-07-16 14:58:00 Miles Lynn [facility] INTUBATION 2022-07-16 14:40:[address] [facility] CYSTOSCOPY WITH 2022-07-16 14:22:00 Miles Lynn [facility] INSERTION STENT URETER Medical B ranch URINALYSIS 2022-07-16 06:12:00 Nida Kiser [facility] BASIC METABOLIC PANEL 2022-07-16 04:34:00 Nida [facility]iser [facility] (NA, K, CL, CO2, Medical Branch GLUCOSE, BUN, CREATININE, CA) CBC WITH DIFF 2022-07-16 04:34:00 Nida Kiser [facility] CT ABDOMEN PELVIS WO 2022-07-16 04:28:26 Nida Kiser [facility] URINALYSIS 2022-07-16 03:21:00 Nida Kiser [facility] CONSENT/REFUSAL FOR 2022-07-16 02:49:22 Doctor Unassigned, No Un [facility] DIAGNOSIS AND Name Medical [place] TREATMENT NOTICE OF PRIVACY 2022-07-16 02:48:43 Doctor Unassigned, No Univ [facility] PRACTICES Name [facility] Encounters Start End Encounter Admission Attending Care Care Encounter Source Date/Time Date/Time Type Type Clinicians Facility Department ID 2022-08-25 2022-08-25 Telephone [facility] [id number] Univers 00:00:00 00:00:00 Ash CARTY 350.1.13.10 it y of WOMEN'S 4.2.7.2.686 [facility] [id number] [facility] 204 [place] 2022-08-08 2022-08-08 [facility] [id number] Univers 00:00:00 00:00:00 Ash MARCUS 350.1.13.10 i ty of [place] 4.2.7.2.686 [facility] PROFESSIO [id number] Ca dical [facility] 204 [facility] 2022-07-31 2022-08-01 Emergency X [facility] ERT [id number] Univers 20:42:00 00:44:00 LEONARD tanner [facility] 2022-07-31 2022-08-01 Emergency [facility] [id number] Univers 20:42:00 00:44:00 Leonard MARCUS 350.1.13.10 i ty of [place] 4.2.7.2.686 [facility] [id number] [place] [id number] [place] 2022-07-19 2022-07-19 Transition RUBY Real [id number] Univers 00:00:00 00:00:00 of Care [place] MARTINEZY 350.1.13.10 it y of [place] 4[place]2.7.2.686 [place] [id number] [facility] 403 Branch 2022-07-16 2022-07-17 Outpatient X [facility] SUU [id number] Univers 05:38:00 14:43:00 MILES tanner o f [facility] 2022-07-16 2022-07-17 Emergency RADHA Lynn [id number] Univers 05:38:00 14:43:00 Miles WHITFIELD 350.1.13.10 i ty of [facility] 4.2.7.2.686 Ronny as [id number] [facility] 091 Branch 2022-07-16 2022-07-16 Surgery RADHA Lynn [id number] Univers 09:40:00 10:38:00 Miles WHITFIELD 350.1.13.10 i ty of [facility] 4.2.7.2.686 Ronny as [id number] [facility] 103 Branch 2022-07-16 2022-07-16 Anesthesia Steve Martinez [id number] Univers 09:33:00 10:13:00 Event Raúl Neri 350.1.13.10 ity of [facility] 4.2.7.2.686 Ronny as [id number] [facility] 103 Branch 2022-07-15 2022-07-16 Emergency [facility] [id number] Univers 21:50:00 04:18:00 Nida MARCUS 350.1.13.10 ity [facility] 4.2.7.2.686 [place] [id number] [facility] 084 Branch 2022-07-15 2022-07-16 Emergency X [facility] ERT [id number] Univers 21:50:00 04:18:00 NIDA tanner of [facility] 2020-01-01 2020-01-01 Outpatient [facility] [id number] [place] 02:21:00 02:21:00 1118 Medical Group 2020-01-01 2020-01-01 Outpatient [facility] [id number] [place] 02:21:00 02:21:00 1208 Medical Group [...] 34.4 g/dL 31.6-35.1 RDW-SD (test code = 27427-1) 42.4 fL 39.0-49.9 RDW-CV (test code = 788-0) 13.2 % 12.0-15.5 PLT (test code = 777-3) 283 See_Comment [Au tomated message] The system which ge nerated this result transmit nusrat reference range: 166 - 35 8 10*3/?L. The reference range was not used to interpret th is result as normal/abnormal . MPV (test code = 49544-8) 11.3 fL 9.5-12.9 NRBC/100 WBC (test code = 0.0 See_Comment [ Automated message] The [id number]) system which Fantastic.cl nerated this result transmit nusrat reference range: 0.0 - 10 .0 /100 WBCs. The reference r dorothy was not used to interpr et this result as normal/abnor mal. NRBC x10^3 (test code = See_Comment [Au tomated message] The [id number]) system which Fantastic.cl nerated this result transmit nusrat reference range: 10*3/?L. The reference range was not u sed to interpret this result as normal/abnormal . GRAN MAT (NEUT) % (test code 53.7 % = 770-8) IMM GRAN % (test code = 0.30 % [id number]) LYMPH % (test code = 736-9) 35.1 % MONO % (test code = 5905-5) 5.8 % EOS % (test code = 713-8) 4.0 % BASO % (test code = 706-2) 1.1 % GRAN MAT x10^3(ANC) (test 5.34 10*3/uL 1.88-7.09 code = 5300496575) IMM GRAN x10^3 (test code = 0.03 10*3/uL 0.00-0.06 3094147300) LYMPH x10^3 (test code = 3.50 10*3/uL 1.32-3.29 H 731-0) MONO x10^3 (test code = 0.58 10*3/uL 0.33-0.92 742-7) EOS x10^3 (test code = 0.40 10*3/uL 0.03-0.39 H 711-2) BASO x10^3 (test code = 0.11 10*3/uL 0.01-0.07 H 704-7) Lab Interpretation (test Abnormal code = 59387-3) [facility] METABOLIC PANEL (NA, K, CL, CO2, GLUCOSE, BUN, CREATININE, CA)2022-07-16 05:01:11 Test Item Value Reference Range Interpretation Comments NA (test code = 137 mmol/L 135-145 1847477869) K (test code = 3.8 mmol/L 3.5-5.0 9508597162) CL (test code = 102 mmol/L 98-108 4886886923) CO2 TOTAL (test code 26 mmol/L 23-31 = 8383608316) AGAP (test code = 9 2-16 6369341451) BUN (test code = 14 mg/dL 7-23 0951304136) GLUCOSE (test code = 71 mg/dL 70-110 3546393547) CREATININE (test code 0.91 mg/dL 0.50-1.04 = 1893027098) CALCIUM (test code = 9.2 mg/dL 8.6-10.6 3679926585) eGFR (test code = 65.4 mL/min/1.73m2 8137005313) LENO (test code = LENO) Association of [...] or urine or abnormalities in imaging tests). [facility] WITH [id number] 04:48:31 Test Item Value Reference Range Interpretation [...] RDW-SD (test code = 40.4 fL 39.0-49.9 98531-5) RDW-CV (test code = 12.8 % 12.0-15.5 788-0) PLT (test code = 234 See_Comment [Automated 777-3) message] The system which generated this result transmit nusrat reference range : 166 - 358 10*3/ ?L. The reference range was not u sed to interpret th is result as normal/abnormal . MPV (test code = 11.2 fL 9.5-12.9 01436-9) NRBC/100 WBC (test 0.0 See_Comment [Automat ed code = 0666130186) message] The system which generated this result transmit nusrat reference range : 0.0 - 10.0 /100 WBCs. The reference range was not used to interpret this result as normal/abnormal . NRBC x10^3 (test code See_Comment [Auto mated = 1952528723) message] The system which generated this result transmit nusrat reference range : 10*3/?L. The reference range was not used to interpret this result as normal/abnormal . GRAN MAT (NEUT) % 84.4 % (test code = 770-8) IMM GRAN % (test code 0.60 % = 8828185228) LYMPH % (test code = 8.9 % 736-9) MONO % (test code = 4.8 % 5905-5) EOS % (test code = 0.9 % 713-8) BASO % (test code = 0.4 % 706-2) GRAN MAT x10^3(ANC) 11.67 10*3/uL 1.88-7.09 H (test code = 6242751132) IMM GRAN x10^3 (test 0.09 10*3/uL 0.00-0.06 H code = 5201561975) LYMPH x10^3 (test code 1.23 10*3/uL 1.32-3.29 L = 731-0) MONO x10^3 (test code 0.67 10*3/uL 0.33-0.92 = 742-7) EOS x10^3 (test code = 0.13 10*3/uL 0.03-0.39 711-2) BASO x10^3 (test code 0.06 10*3/uL 0.01-0.07 = 704-7) Lab Interpretation Abnormal (test code = 02727-0) [facility] [id number] 15:02:00Surgical Pathology Report Case: [id number] Authorizing Provider: Sergio Oliveira MD Collected: 11/03/2017 1909 Ordering Location: [facility] Received: 11/05/2017 1229 SERVICES Pathologist: Lauryn Tejeda MD Specimen: Gallbladder, gall bladder GALLBLADDER, CHOLECYSTECTOMY: - ACUTE AND CHRONIC CHOLECYSTITIS - CHOLELITHIASIS - ONE BENIGN REACTIVE LYMPH NODE (0/1) Signing Pathologist Direct Phone Line: [phone] signed by Lauryn Tejeda MD on 11/07/2017 at 3:02 [id number] Received fresh labeled "gallbladder" is an 8.0 [...] one bisected cystic duct lymph node; A2, 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 DB/pl Performed.HEPATIC FUNCTION [id number] 07:03:00 Test Item Value Reference Range Interpretation [...] 65 U/L 6-55 H 347) BASIC METABOLIC [id number] 07:03:00 Test Item Value Reference Range Interpretation [...] PATIEN TS. CBC W/PLT COUNT & AUTO [id number] 04:20:00 Test Item Value Reference Range Interpretation [...] PERCENT (BEAKER) (test code = 2801) [place], [id number] 07:54:00Reason for exam:->ERCP for biliary stent removal [...] = 38 U/L 6-55 347) BASIC METABOLIC [id number] 06:33:00 Test Item Value Reference Range Interpretation [...] PATIEN TS. CBC W/PLT COUNT & AUTO [id number] 05:29:00 Test Item Value Reference Range Interpretation [...] 0-1 PERCENT (BEAKER) (test code = 2801) [id number] 07:20:00 Test Item Value Reference Range Interpretation Comments LIPASE (BEAKER) (test code = 749) 67 U/L 8-78 BASIC METABOLIC [id number] 07:20:00 Test Item Value Reference Range Interpretation [...] APPLICABLE FOR DIALYSIS PATIEN TS. HEPATIC FUNCTION [id number] 07:20:00 Test Item Value Reference Range Interpretation [...] code = 32 U/L 6-55 347) PROTHROMBIN [id number] 06:57:00 Test Item Value Reference Range Interpretation Comments PROTIME (BEAKER) (test code = 14.6 seconds 11.7-14.7 759) INR (BEAKER) (test code = 370) 1.1 <=5.9 RECOMMENDED COUMADIN/WARFARIN INR THERAPY RANGESSTANDARD DOSE: 2.0 - 3.0 Includes: PROPHYLAXIS for venous thrombosis, systemic embolization; TREATMENT for venous thrombosis and/or pulmonary embolus.HIGH RISK: Target INR is 2.5-3.5 for patients with mechanical heart valves.CBC W/PLT COUNT & AUTO [id number] 06:49:00 Test Item Value Reference Range Interpretation [...] % 0-1 PERCENT (BEAKER) (test code = 2807)
[2022-11-02] MEDS ORDERED: ONDANSETRON 4 MG/2 ML VIAL ONE (11:44)
[2022-11-02] MEDS ORDERED: MORPHINE 4 MG/ML SYR ONE (11:44)
[2022-11-02] MEDS ORDERED: NA CHLORIDE 0.9% 1,000 ML ONE (11:45)
--- NOTE | 2022-11-02 11:48 | RAD REPORT ---
EXAM DESCRIPTION: CT - Abdomen Pelvis Wo Contrast - 11/02/2022 11:32 am CLINICAL HISTORY: Abdominal pain. FLANK PAIN COMPARISON: Stone Protocol dated 09/19/2022 TECHNIQUE: CT imaging of the abdomen and pelvis was performed without contrast. Solid organ, bowel a nd vascular assessment is limited due to lack of IV and oral contrast. All CT scans are performed using dose optimization technique as appropriate and may include automated exposure control or mA/KV adjustment according to patient size. FINDINGS: The lower lung vicente are clear. The liver demonstrates a nodular contour suggesting mild cirrhosis. Cholecystectomy.Spleen is normal sized. The pancreas, adrenal glands are normal. Punctate calculus is seen inferior calyx right kidney. Left double-J stent is in place proximal and distal aspects in expected positioning. 6 mm calculus is seen along the course of the stent proximally. Minimal left hydronephrosis. No bowel obstruction, free air, free fluid or abscess. 6 cm left pelvic cystic structure again noted appearing slightly smaller relative to comparative study. The appendix is normal. The osseous structures are within normal limits. IMPRESSION: 6 mm calculus is seen proximal left ureter along the course of the left double-J stent. Minimal left hydronephrosis. Nonobstructing punctate right renal calculus. 6 cm left pelvic cystic structure, slightly smaller than on the comparative study. Nonemergent female pelvis MRI would be advised. A limited non-contrast examination was performed as detailed.
[2022-11-02 12:04] LABS: Specific Gravity 1.007 (1.005-1.030)
[2022-11-02 12:05] LABS: Absolute Lymphocytes (CBC) 2.3 K/uL (0.7-4.9); Hematocrit 39.9 % (36.0-45.0); MPV 8.1 fL (7.6-11.3); Platelets 288 thou/uL (152-406); RBC Red Blood Cell Count 4.59 M/uL (3.86-4.86)
[2022-11-02 12:08] LABS: Specific Gravity 1.007 (1.005-1.030); Urine Bacteria <20 /HPF (<20); Urine Bilirubin NEGATIVE (Negative); Urine Blood 3+ (OVER) (Negative); Urine Clarity Extremely Turbid (Clear); Urine Color Light-Yellow (Yellow); Urine Glucose NEGATIVE (Negative); Urine Mucus Slight /HPF (None Seen); Urine Protein TRACE (Negative); Urine RBC >50 /HPF (None Seen); Urine Urobilinogen Normal (Normal); Urine WBC Clump Rare /HPF (None Seen); Urine pH 6.5 (5.0-7.0)
[2022-11-02 12:18] LABS: Potassium 3.5 mEq/L (3.5-5.1)
[2022-11-02] MEDS ORDERED: Levofloxacin 750mg IV 750 MG/150 ML BAG IV ONE (13:04)
--- NOTE | 2022-11-02 13:49 | EDPHYS ---
Physician Documentation [facility] Name: Nany Mary Age: 52 yrs Sex: Female : 1970 Arrival Date: 11/02/2022 Time: 10:57 Bed 16 Private MD: ED Physician Roger Pickard HPI: 11/02 11:19 This 52 yrs old Female presents to ER via Ambulatory with complaints of Left flank Pain.ci 11:58 Patient is a 52-year-old female with PMH nephrolithiasis, pancreatitis, depression who ci presents to the ED with left flank pain that began about 3 days ago. Pain is sharp, intermittent, rated 8/10. Patient also endorses dysuria, bladder spasms, hematuria, nausea but no vomiting. Patient had a stent placed in July, reports history of frequent kidney infections. Denies fever, chills, shortness of breath, chest pain.. Historical: - Allergies: 11:10 PENICILLINS; ph - PMHx: 11:10 ADD/ADHD; Chronic Pancreatitis; Depression; HEP C; left leg DVT; liver and pancrease ph laceration when she was 10; - PSHx: 11:10 carpal tunnel; hysterectomy; renal stent; tubal ligation; ph - Immunization history:: Adult Immunizations unknown. - Social history:: Smoking status: Patient reports the use of cigarette tobacco products, smokes one-half pack cigarettes per day. ROS: 11:58 Constitutional: Negative for chills, fatigue, fever, ci 11:58 Cardiovascular: Negative for chest pain, orthopnea, palpitations, 11:58 Respiratory: Negative for cough, shortness of breath, wheezing, 11:58 Abdomen/GI: Positive for nausea, Flank pain, 11:58 Back: Positive for flank pain, on the left, 11:58 : Positive for urinary symptoms, hematuria, burning with urination, Exam: 11:58 Constitutional: This is a well developed, well nourished patient who is awake, alert, ci and in no acute distress. Head/Face: Normocephalic, atraumatic. Eyes: Pupils equal round and reactive to light, extra-ocular motions intact. Lids and lashes normal. Conjunctiva and sclera are non-icteric and not injected. Cornea within normal limits. Periorbital areas with no swelling, redness, or edema. ENT: Nares patent. No nasal discharge, no septal abnormalities noted. Tympanic membranes are normal and external auditory canals are clear. Oropharynx with no redness, swelling, or masses, exudates, or evidence of obstruction, uvula midline. Mucous membranes moist. Neck: Trachea midline, no thyromegaly or masses palpated, and no cervical lymphadenopathy. Supple, full range of motion without nuchal rigidity, or vertebral point tenderness. No Meningismus. Chest/axilla: Normal chest wall appearance and motion. Nontender with no deformity. No lesions are appreciated. Cardiovascular: Regular rate and rhythm with a normal S1 and S2. No gallops, murmurs, or rubs. No JVD. No pulse deficits. Respiratory: Lungs have equal breath sounds bilaterally, clear to auscultation and percussion. No rales, rhonchi or wheezes noted. No increased work of breathing, no retractions or nasal flaring. Abdomen/GI: Soft, non-tender, with normal bowel sounds. No distension or tympany. No guarding or rebound. No evidence of tenderness throughout. Back: No spinal tenderness. No costovertebral tenderness. Full range of motion. Skin: Warm, dry with normal turgor. Normal color with no rashes, no lesions, and no evidence of cellulitis. MS/ Extremity: Pulses equal, no cyanosis. Neurovascular intact. Full, normal range of motion. Neuro: Awake and alert, GCS 15, oriented to person, place, time, and situation. Cranial nerves II-XII grossly intact. Motor strength 5/5 in all extremities. Sensory grossly intact. Cerebellar exam normal. Normal gait. Psych: Awake, alert, with orientation to person, place and time. Behavior, mood, and affect are within normal limits. Vital Signs: 11:09 BP 133 / 82; Pulse 101; Resp 18; Temp 97.9; Pulse Ox 98% on R/A; Weight 62.6 kg; Height ph 5 ft. 1 in. ; 12:49 BP 101 / 62; Pulse 80; Resp 18 S; Pulse Ox 99% on R/A; kc6 11:09 Body Mass Index 26.07 (62.60 kg, 154.94 cm) ph MDM: 11:13 Patient medically screened. ci 11:58 Differential diagnosis: UTI, Pyelonephritis, nephrolithiasis, cystitis. Data reviewed: ci vital signs, nurses notes, old medical records, lab test result(s). External Records Reviewed: Outpatient record: . Care significantly affected by the following chronic conditions: Depression, hep C. 12:42 External Records Reviewed: Outpatient record: Patient was evaluated in the ED on ci 09/19/2022 for similar complaints. Prior chart patient missed her appointment for stent removal in August. Physician spoke with [facility] urology and they wanted her to follow-up in the week, patient has not followed up. [facility] urology number is [id number]. ED course: Left flank pain slightly improved. Will administer Toradol and Levaquin and reassess.. 13:46 Response to treatment: the patient's symptoms have markedly improved after treatment. ci ED course: Patient does not want to wait for completion of Levaquin, requesting to be discharged because her is clearing out her house, reports he asked for divorce and she has a lot going on. I counseled patient on the importance of follow-up. I did discuss that she is high risk for an infected stone and needs antibiotics, she states to write her prescriptions and she will pick it up immediately. Discussed findings of 6 cm pelvic cyst and need for close outpatient technical photographer follow-up.. 11/02 11:21 Order name: CBC with Diff; Complete Time: 12:35 ci 11/02 11:21 Order name: Test, Urine; Complete Time: 12:35 ci 11/02 11:21 Order name: Urinalysis w/ reflexes; Complete Time: 12:35 ci 11/02 12:35 Interpretation: Abnormal: UESTR 500; UWBC 20-50; URBC >50. ci 11/02 11:21 Order name: BMP; Complete Time: 12:35 ci 11/02 12:12 Order name: Urine Culture EDPA 11/02 11:21 Order name: CT Abd/Pelvis - Without Contrast; Complete Time: 12:03 ci 11/02 12:04 Interpretation: Abnormal: Per Radiologist's finding(s): IMPRESSION: 6 mm calculus is ci seen proximal left ureter along the course of the left double-J stent. Minimal left hydronephrosis. Nonobstructing punctate right renal calculus. 6 cm left pelvic cystic structure, slightly smaller than on the comparative study. Nonemergent female pelvis MRI would be advised. 11/02 11:21 Order name: IV Saline Lock; Complete Time: 11:57 ci 11/02 11:21 Order name: Labs collected and sent; Complete Time: 11:57 ci Administered Medications: 11:57 Drug: NS 0.9% IV 1000 ml IV at 1 bolus Per protocol; 1000 mL bolus Route: IV; Rate: 1 kc6 bolus; Site: right antecubital; 13:48 Follow up: Response: No adverse reaction; IV Status: Completed infusion; IV Intake: kc6 500ml 11:57 Drug: Ondansetron IVP 4 mg IVP once; over 2 minutes Route: IVP; Site: right antecubital;kc6 12:33 Follow up: Response: No adverse reaction kc6 11:57 Drug: morphine IVP or IV 4 mg IVP once over 4 mins Route: IVP; Infused Over: 4 mins; kc6 Site: right antecubital; 12:33 Follow up: Response: No adverse reaction kc6 12:59 Drug: levofloxacin IVPB 750 mg 150 ml IVPB once over 90 mins Volume: 150 ml; Route: kc6 IVPB; Infused Over: 90 mins; Site: right antecubital; 13:48 Follow up: Response: No adverse reaction; IV Status: Completed infusion kc6 13:47 Not Given (Patient Refused): mg IVP once kc6 Disposition Summary: 11/02/22 13:48 Discharge Ordered Notes: Location: Home ci Condition: Stable ci Diagnosis - Kidney Stone/ Calculus in urethra ci - UTI/ Urinary tract infection, site not specified ci - Other intra-abdominal and pelvic swelling, mass and lump ci Followup: ci - With: Private Physician - When: 1 - 2 days - Reason: Recheck today's complaints, Re-evaluation by your physician Discharge Instructions: - Discharge Summary Sheet ci - Pelvic Mass, Female ci - Kidney Stones, [id number] ci - Urinary Tract Infection, Adult, [id number] ci - Antibiotic Medicine, Adult, [id number]-ux-Atei ci Forms: - Medication Reconciliation Form ci - Thank You Letter ci - Antibiotic Education ci - Prescription Opioid Use ci - Patient Portal Instructions ci - Leadership Thank You Letter ci Prescriptions: - Flomax 0.4 mg Oral capsule - take 1 capsule ORAL route daily; 14 capsule; Refills: 0, Product Selection ci Permitted - acetaminophen-codeine 300-15 mg Oral tablet - take 1 tablet ORAL route every 6 hours As needed as needed for pain; 12 tablet; ci Refills: 0, Product Selection Permitted - Zofran 4 mg Oral Tablet - take 1 tablet ORAL route every 12 hours As needed; 20 tablet; Refills: 0, ci Product Selection Permitted - levofloxacin 250 mg Oral tablet - take 1 tablet ORAL route once daily; 10 tablet; Refills: 0, Product Selection ci Permitted Signatures: Dispatcher [employer] EDPA Alise Gill RN RN Cyndy Mills RN RN kc6 Roger Pickard ci Corrections: (The following items were deleted from the chart) 11:59 11:19 The history from the nurse's notes was reviewed and I agree with what is ci documented. ci 12:04 12:04 Per Radiologist's finding(s): IMPRESSION: 6 mm calculus is seen proximal left ci ureter along the course of the left double-J stent. Minimal left hydronephrosis. Nonobstructing punctate right renal calculus. 6 cm left pelvic cystic structure, slightly smaller than on the comparative study. Nonemergent female pelvis MRI would be advised. ci 13:51 13:46 ED course: Patient does not want to wait for completion of Levaquin, requesting ci to be discharged because her is clearing out her house, reports he asked for divorce and she has a lot going on. I counseled patient on the importance of follow-up. I did discuss that she is high risk for an infected stone and needs antibiotics, she states to write her prescriptions and she will pick it up immediately.. ci
--- NOTE | 2022-11-02 13:49 | ER ---
Nurse's Notes [facility] Name: Nany Mary Age: 52 yrs Sex: Female : 1970 Arrival Date: 11/02/2022 Time: 10:57 Bed 16 Private MD: Diagnosis: Kidney Stone/ Calculus in urethra;UTI/ Urinary tract infection, site not specified;Other intra-abdominal and pelvic swelling, mass and lump Presentation: 11/02 11:09 Chief complaint: Patient states: L flank pain, hx of kidney stones, states, " I had a ph stent put in in July that I should have had taken out already but I haven't." Also reports blood in urine x 2 days and nausea. Coronavirus screen: Vaccine status: Patient reports receiving the 2nd dose of the covid vaccine. Ebola Screen: No symptoms or risks identified at this time. Initial Sepsis Screen: Does the patient meet any 2 criteria? No. Patient's initial sepsis screen is negative. Does the patient have a suspected source of infection? No. Patient's initial sepsis screen is negative. Risk Assessment: Do you want to hurt yourself or someone else? Patient reports no desire to harm self or others. Onset of symptoms was November 02, 2022. 11:09 Method Of Arrival: Ambulatory ph 11:09 Acuity: ANTHONY 3 ph Historical: - Allergies: 11:10 PENICILLINS; ph - PMHx: 11:10 ADD/ADHD; Chronic Pancreatitis; Depression; HEP C; left leg DVT; liver and pancrease ph laceration when she was 10; - PSHx: 11:10 carpal tunnel; hysterectomy; renal stent; tubal ligation; ph - Immunization history:: Adult Immunizations unknown. - Social history:: Smoking status: Patient reports the use of cigarette tobacco products, smokes one-half pack cigarettes per day. Screenin:00 [facility] ED Fall Risk Assessment (Adult) History of falling in the last 3 months, kc6 including since admission No falls in past 3 months (0 pts) Confusion or Disorientation No (0 pts) Intoxicated or Sedated No (0 pts) Impaired Gait No (0 pts) Mobility Assist Device Used No (0 pt) Altered Elimination No (0 pt) Score/Fall Risk Level 0 - 2 = Low Risk. Abuse screen: Denies threats or abuse. Denies injuries from another. Nutritional screening: No deficits noted. Tuberculosis screening: No symptoms or risk factors identified. Assessment: 11:30 General: Appears in no apparent distress. comfortable, Behavior is calm, cooperative, kc6 appropriate for age. Pain: Complains of pain in back and abdomen. Neuro: Level of Consciousness is awake, alert, obeys commands, Oriented to person, place, time, situation, Appropriate for age. Cardiovascular: Capillary refill < 3 seconds. Respiratory: Airway is patent Trachea midline Respiratory effort is even, unlabored, Respiratory pattern is regular, symmetrical. GI: Abdomen is flat, non-distended, Abd is soft X 4 quads Reports nausea, Patient currently denies diarrhea, vomiting. : Urine is clear. EENT: No signs and/or symptoms were reported regarding the EENT system. Derm: No signs and/or symptoms reported regarding the dermatologic system. Skin is intact, is healthy with good turgor, Skin is pink, warm \\T\\ dry. Musculoskeletal: No signs and/or symptoms reported regarding the musculoskeletal system. Circulation, motion, and sensation intact. Capillary refill < 3 seconds, Range of motion: intact in all extremities. 12:30 Reassessment: Patient appears in no apparent distress at this time. No changes from kc6 previously documented assessment. Patient and/or family updated on plan of care and expected duration. Pain level reassessed. Patient is alert, oriented x 3, equal unlabored respirations, skin warm/dry/pink. 13:30 Reassessment: Patient appears in no apparent distress at this time. No changes from kc6 previously documented assessment. Patient and/or family updated on plan of care and expected duration. Pain level reassessed. Patient is alert, oriented x 3, equal unlabored respirations, skin warm/dry/pink. Vital Signs: 11:09 BP 133 / 82; Pulse 101; Resp 18; Temp 97.9; Pulse Ox 98% on R/A; Weight 62.6 kg; Height ph 5 ft. 1 in. ; 12:49 BP 101 / 62; Pulse 80; Resp 18 S; Pulse Ox 99% on R/A; kc6 11:09 Body Mass Index 26.07 (62.60 kg, 154.94 cm) ph ED Course: 11:01 Patient arrived in ED. mg5 11:10 Triage completed. ph 11:10 Arm band placed on Patient placed in an exam room. ph 11:13 Roger Pickard is Attending Physician. ci 11:15 Cyndy Mills, RN is Primary Nurse. kc6 11:32 CT Abd/Pelvis - Without Contrast In Process Unspecified. EDMS 11:57 Missed attempt(s): 18 gauge in left antecubital area. Inserted saline lock: 20 gauge in kc6 right antecubital area, using aseptic technique. Blood collected. 12:00 Patient has correct armband on for positive identification. Bed in low position. Call kc6 light in reach. Side rails up X2. Client placed on continuous cardiac and pulse oximetry monitoring. NIBP monitoring applied. 14:08 No provider procedures requiring assistance completed. IV discontinued, intact, kc6 bleeding controlled, No redness/swelling at site. Pressure dressing applied. Administered Medications: 11:57 Drug: NS 0.9% IV 1000 ml IV at 1 bolus Per protocol; 1000 mL bolus Route: IV; Rate: 1 kc6 bolus; Site: right antecubital; 13:48 Follow up: Response: No adverse reaction; IV Status: Completed infusion; IV Intake: kc6 500ml 11:57 Drug: Ondansetron IVP 4 mg IVP once; over 2 minutes Route: IVP; Site: right antecubital;kc6 12:33 Follow up: Response: No adverse reaction kc6 11:57 Drug: morphine IVP or IV 4 mg IVP once over 4 mins Route: IVP; Infused Over: 4 mins; kc6 Site: right antecubital; 12:33 Follow up: Response: No adverse reaction kc6 12:59 Drug: levofloxacin IVPB 750 mg 150 ml IVPB once over 90 mins Volume: 150 ml; Route: kc6 IVPB; Infused Over: 90 mins; Site: right antecubital; 13:48 Follow up: Response: No adverse reaction; IV Status: Completed infusion kc6 13:47 Not Given (Patient Refused): [id number] mg IVP once kc6 Medication: 14:09 VIS not applicable for this client. kc6 Intake: 13:48 IV: 500ml; Total: 500ml. kc6 Outcome: 13:48 Discharge ordered by . ci 14:09 Discharged to home ambulatory, kc6 14:09 Condition: stable 14:09 Discharge instructions given to patient, Instructed on discharge instructions, follow up and referral plans. medication usage, Demonstrated understanding of instructions, follow-up care, medications, Prescriptions given X 4, 14:09 Patient left the ED. kc6 Signatures: Dispatcher [employer] Alise Monroe, RN RN Cyndy Villeda RN RN kc6 Cristina Mojica mg5 IheferkRoger gipson ci Corrections: (The following items were deleted from the chart) 11:59 11:19 The history from the nurse's notes was reviewed and I agree with what is ci documented. ci
[2022-11-02] MEDS ORDERED: KETOROLAC 30 MG/ML INJ ONE (13:52)
== END 2022-11-02 14:09 | disposition home or self-care (01) ==
LOC: ER 10:57
DX: N20.2 Calculus of kidney with calculus of ureter (principal); N39.0 Urinary tract infection, site not specified; F17.210 Nicotine dependence, cigarettes, uncomplicated; Z88.0 Allergy status to penicillin
CPT/HCPCS: 36415; 74176; 80048; 81001; 81025; 85025; 87086; 87088; J2405; J7030

== ENCOUNTER 2023-01-18 14:49 | Emergency (ER) | payer SELFPAY ==
[2023-01-18 15:29] LABS: Absolute Lymphocytes (CBC) 1.5 K/uL (0.7-4.9); Hematocrit 41.9 % (36.0-45.0); Lymphocytes % 14.3 % (15.3-44.8); MCV 88.5 fL (80-100); MPV 8.3 fL (7.6-11.3); Platelets 265 thou/uL (152-406); RBC Red Blood Cell Count 4.73 M/uL (3.86-4.86)
[2023-01-18 15:30] LABS: Specific Gravity 1.015 (1.005-1.030); Urine Bacteria <20 /HPF (<20); Urine Bilirubin NEGATIVE (Negative); Urine Blood 3+ (OVER) (Negative); Urine Clarity Extremely Turbid (Clear); Urine Color Light-Orange (Yellow); Urine Glucose NEGATIVE (Negative); Urine Mucus 1+ /HPF (None Seen); Urine Protein 1+ (Negative); Urine RBC >50 /HPF (None Seen); Urine Urobilinogen Normal (Normal); Urine WBC Clump Moderate /HPF (None Seen); Urine pH 6.5 (5.0-7.0)
[2023-01-18 15:40] LABS: Potassium 3.4 mEq/L (3.5-5.1)
--- NOTE | 2023-01-18 16:17 | RAD REPORT ---
EXAM DESCRIPTION: CTAbdomen Pelvis W Contrast - 01/18/2023 3:57 pm CLINICAL HISTORY: Abdominal pain. FLANK PAIN COMPARISON: Abdomen Pelvis W Contrast dated 10/15/2021; Abdomen Pelvis W Contrast dated 11/01/2017; Abdomen Pelvis W Contrast dated 06/13/2017; Abdomen Pelvis W Contrast dated 05/07/2017; Abdomen P sanjeev Wo Contrast dated 11/02/2022 TECHNIQUE: Biphasic CT imaging of the abdomen and pelvis was performed with 100 ml non-ionic IV cont rast. All CT scans are performed using dose optimization technique as appropriate and may include automated exposure control or mA/KV adjustment according to patient size. FINDINGS: The lung bases are clear. The liver is mildly prominent in size. Cholecystectomy clips. Spleen, pancreas, adrenal glands are wi thin normal limits. There is a left double-J stent in place. Proximal aspect of the stent is in the i nferior calyx left kidney. There is a small stone present in the inferior calyx left kidney measuring 6 mm. 25 mm oblong stone is present in the urinary bladder. Several calcified densities are seen kimo ng the distal aspect of the double-J stent in the bladder. Mild left hydronephrosis. Punctate calculu s is seen in the inferior right kidney without hydronephrosis. Small amount of air is present in the urinary bladder. There is a subtle enhancement of the left urinary bladder and left sided collecting system/ureter whi ch could indicate infection. Urinalysis correlation would be suggested. No bowel obstruction, free air, free fluid or abscess. 5 cm pelvic cystic structure has moderately di minished in size since prior study. The appendix is normal. No evidence of significant lymphadenopat hy. No suspicious bony findings. IMPRESSION: Left double-J stent is present as detailed with mild left hydronephrosis. Numerous calci fications are seen along the inferior aspect of the left stent within the urinary bladder. In additio n there is a large urinary bladder stone now present measuring 25 mm. Bilateral caliceal stones are also noted. Subtle enhancement of the uroepithelial left collecting system and ureter as well as the bladder with a small amount of air in the urinary bladder noted. Suggest clinical correlation for possible urinar y tract infection.
--- NOTE | 2023-01-18 16:59 | ER ---
Nurse's Notes [facility] Name: Nany Mary Age: 52 yrs Sex: Female : 1970 Arrival Date: 01/18/2023 Time: 14:49 Bed DX4 Private MD: Diagnosis: UTI/ Urinary tract infection, site not specified Presentation: 01/18 14:54 Chief complaint: Patient states: STATES IS "PEEING BLOOD", LOW BACK PAIN, BURNING WITH db URINATION. STATES IS URINATING CHUNKS AND HAS URINARY STENT. STATES IS DETOXING FROM METH AND CRATOM. LOWER BACK PAIN X 3 DAYS. Coronavirus screen: Vaccine status: Patient reports receiving the 2nd dose of the covid vaccine. Client denies travel out of the [place] in the last 14 days. At this time, the client does not indicate any symptoms associated with coronavirus-19. Ebola Screen: Patient negative for fever greater than or equal to 101.5 degrees Fahrenheit, and additional compatible Ebola Virus Disease symptoms Patient denies exposure to infectious person. Patient denies travel to an Ebola-affected area in the 21 days before illness onset. No symptoms or risks identified at this time. Initial Sepsis Screen: Does the patient meet any 2 criteria? No. Patient's initial sepsis screen is negative. Does the patient have a suspected source of infection? No. Patient's initial sepsis screen is negative. Risk Assessment: Do you want to hurt yourself or someone else? Patient reports no desire to harm self or others. Onset of symptoms was January 15, 2023. 14:54 Method Of Arrival: Ambulatory db 14:54 Acuity: ANTHONY 3 db Triage Assessment: 14:57 General: Appears in no apparent distress. uncomfortable, Behavior is cooperative, db anxious. Pain: Complains of pain in back. Neuro: Level of Consciousness is awake, alert, obeys commands, Oriented to person, place, time, situation. Respiratory: Airway is patent Respiratory effort is even, unlabored, Respiratory pattern is regular, symmetrical. : Reports burning with urination. 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 - Social history:: Smoking status: Patient reports the use of cigarette tobacco products, smokes one-half pack cigarettes per day, Patient uses street drugs, Methamphetamine (Meth). Screenin:29 [facility] ED Fall Risk Assessment (Adult) Score/Fall Risk Level 0 - 2 = Low Risk ll1 Oriented to surroundings, Maintained a safe environment, Educated pt \\T\\ family on fall prevention, incl call for assistance when getting out of bed, Hourly rounding (assess needs \\T\\ fall precautionary measures) done. Abuse screen: Denies threats or abuse. Nutritional screening: No deficits noted. Tuberculosis screening: No symptoms or risk factors identified. Assessment: 17:13 Reassessment: No changes from previously documented assessment. Patient and/or family ll1 updated on plan of care and expected duration. Pain level reassessed. Vital Signs: 14:56 BP 140 / 85; Pulse 115; Resp 18; Temp 98.4(TE); Pulse Ox 98% ; Weight 54.43 kg; Height db 6 ft. 1 in. ; 14:57 Pain 9/10; db 17:00 BP 137 / 71; Pulse 99; Resp 18; Pulse Ox 97% on R/A; eh3 14:56 Body Mass Index 15.83 (54.43 kg, 185.42 cm) db 14:57 Pain Scale: Adult db ED Course: 14:50 Patient arrived in ED. rg4 14:52 Miladis Parker FNP-C is PHCP. kb 14:52 Alberto Adams MD is Attending Physician. kb 14:56 Triage completed. db 14:57 Arm band placed on. db 15:15 Missed attempt(s): 22 gauge in left antecubital area. bc6 15:20 Basic Metabolic Panel Sent. bc6 15:20 CBC with Diff Sent. bc6 15:20 Inserted saline lock: 20 gauge in right antecubital area, using aseptic technique. bc6 Blood collected. 15:59 CT Abd/Pelvis - IV Contrast Only In Process Unspecified. EDMS 17:24 Robles Duran MD is Attending Physician. kb 17:28 No provider procedures requiring assistance completed. IV discontinued, intact, ll1 bleeding controlled, No redness/swelling at site. Pressure dressing applied. 17:30 Patient has correct armband on for positive identification. Bed in low position. Call ll1 light in reach. Cardiac monitoring not applicable on this patient. 17:30 Provided Education on: n/a. ll1 Administered Medications: 15:10 Drug: NS 0.9% IV 1000 ml IV at 1000 ml once Route: IV; Rate: 1000 ml; Site: left db antecubital; 17:12 Follow up: Response: No adverse reaction; IV Status: Completed infusion; IV Intake: ll1 1000ml 17:12 Not Given (Patient Refused): mg IVP once ll1 17:12 Drug: Ciprofloxacin PO 500 mg PO once Route: PO; ll1 17:30 Follow up: Response: No adverse reaction ll1 Medication: 17:30 VIS not applicable for this client. ll1 Intake: 17:12 IV: 1000ml; Total: 1000ml. ll1 Outcome: 16:58 Discharge ordered by MD. baca 17:29 Discharged to home ambulatory, ll1 17:29 Condition: stable 17:29 Discharge instructions given to patient, Instructed on discharge instructions, follow up and referral plans. medication usage, Demonstrated understanding of instructions, follow-up care, medications, 17:29 Prescriptions given X 1, ll1 17:30 Patient left the ED. ll1 Addendum: 01/22/2023 07:28 Addendum: Culture Results: Positive urine culture. No further action required. Bacteria e b sensitive to prescribed antibiotic. Signatures: Dispatcher [employer] EDNV Miladis Parker, KEY ENTRY OPERATOR-C KEY ENTRY OPERATOR-Corina Worley rg4 Clarita Keating Lynsay RN RN ll1 Shawna Gill RN RN 3 Tish Ralph, RN RN db Valery Espinoza 6 Corrections: (The following items were deleted from the chart) 01/18 17:29 17:29 Condition: stable ll1 ll1
--- NOTE | 2023-01-18 16:59 | EDPHYS ---
Physician Documentation [facility] Name: Nany Mary Age: 52 yrs Sex: Female : 1970 Arrival Date: 01/18/2023 Time: 14:49 Bed DX4 Private MD: ED Physician Robles Duran HPI: 01/18 18:29 This 52 yrs old Female presents to ER via Ambulatory with complaints of Urinary Problem.kb 18:29 Patient is a 52-year-old female who presents for left flank pain, dysuria and kb hematuria. States that she has had hematuria for the last 6 months since she had a stent placed in left ureter. Burning with urination and pain started 3 days ago. States she should have had the stent removed but she has been on methamphetamines and kratom so she has not been taking care of herself. States she is planning to go to rehab tomorrow so she wanted to get seen today to get antibiotics if needed.. 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 - Social history:: Smoking status: Patient reports the use of cigarette tobacco products, smokes one-half pack cigarettes per day, Patient uses street drugs, Methamphetamine (Meth). ROS: 18:27 Constitutional: Negative for fever, chills, and weight loss, kb 18:27 : Positive for urinary symptoms, flank pain, hematuria, burning with urination, 18:27 All other systems are negative, Exam: 18:27 Constitutional: This is a well developed, well nourished patient who is awake, alert, kb and in no acute distress. Head/Face: Normocephalic, atraumatic. ENT: Moist Mucous membranes Cardiovascular: Regular rate Respiratory: Respirations even and unlabored. No increased work of breathing. Talking in full sentences Skin: Warm, dry with normal turgor. Normal color. MS/ Extremity: Pulses equal, no cyanosis. Neurovascular intact. Full, normal range of motion. Neuro: Awake and alert, GCS 15, oriented to person, place, time, and situation. Moves all extremities. Normal gait. 18:27 Abdomen/GI: Inspection: abdomen appears normal, Bowel sounds: normal, Palpation: soft, in all quadrants, mild abdominal tenderness, in the left upper quadrant and left lower quadrant, 18:27 Back: CVA tenderness, that is mild, is noted on the left, Vital Signs: 14:56 BP 140 / 85; Pulse 115; Resp 18; Temp 98.4(TE); Pulse Ox 98% ; Weight 54.43 kg; Height db 6 ft. 1 in. ; 14:57 Pain 9/10; db 17:00 BP 137 / 71; Pulse 99; Resp 18; Pulse Ox 97% on R/A; eh3 14:56 Body Mass Index 15.83 (54.43 kg, 185.42 cm) db 14:57 Pain Scale: Adult db MDM: 14:52 Patient medically screened. kb 18:28 Differential diagnosis: uti, kidney stone, pyelonephritis. Data reviewed: vital signs, kb nurses notes. Consideration of Admission/Observation Escalation of care including admission/observation considered. admission considered, but pt is nontoxic in appearance, afebrile, labs wnl. Discussed case with Dr Duran who recommends outpatient antibiotics. Counseling: I had a detailed discussion with the patient and/or guardian regarding the historical points, exam findings, and any diagnostic results supporting the discharge/admit diagnosis, lab results, radiology results, the need for outpatient follow up, a family practitioner, to return to the emergency department if symptoms worsen or persist or if there are any questions or concerns that arise at home. 12 14:57 Order name: CBC with Diff; Complete Time: 15:41 kb 01/18 14:57 Order name: Basic Metabolic Panel; Complete Time: 15:41 kb 01/18 14:57 Order name: Urinalysis w/ reflexes; Complete Time: 15:41 kb 01/18 15:42 Order name: Urine Culture EDMS 01/18 14:57 Order name: CT Abd/Pelvis - IV Contrast Only; Complete Time: 16:18 kb 01/18 14:57 Order name: IV Start; Complete Time: 15:20 kb Administered Medications: 15:10 Drug: NS 0.9% IV 1000 ml IV at 1000 ml once Route: IV; Rate: 1000 ml; Site: left db antecubital; 17:12 Follow up: Response: No adverse reaction; IV Status: Completed infusion; IV Intake: ll1 1000ml 17:12 Not Given (Patient Refused): [id number] mg IVP once ll1 17:12 Drug: Ciprofloxacin PO 500 mg PO once Route: PO; ll1 17:30 Follow up: Response: No adverse reaction ll1 Disposition Summary: 01/18/23 16:58 Discharge Ordered Notes: Location: Home kb Condition: Stable kb Diagnosis - UTI/ Urinary tract infection, site not specified kb Followup: kb - With: Emergency Department - When: As needed - Reason: Worsening of condition Followup: kb - With: Private Physician - When: 2 - 3 days - Reason: Recheck today's complaints, Continuance of care, Re-evaluation by your physician Discharge Instructions: - Discharge Summary Sheet kb - Urinary Tract Infection, Adult, [id number] kb Forms: - Medication Reconciliation Form kb - Thank You Letter kb - Antibiotic Education kb - Prescription Opioid Use kb - Patient Portal Instructions kb - Leadership Thank You Letter kb Prescriptions: - Diflucan 150 mg Oral Tablet - take 1 tablet ORAL route one time for 1 day; 1 tablet; Refills: 0, Product kb Selection Permitted - Cipro 500 mg Oral tablet - take 1 tablet ORAL route every 12 hours for 10 days; 20 tablet; Refills: 0, kb Product Selection Permitted Addendum: 01/23/2023 09:01 Co-signature as Attending Physician, Robles Duran MD I reviewed the patient's care r n provided by the Advanced Practice Provider and agree with the diagnosis and treatment plan. Signatures: Dispatcher [employer] Miladis King, CORPORATE RELATIONS DIRECTOR-C CORPORATE RELATIONS DIRECTOR-Robles Perez MD MD rn Lewis, Lynsay RN RN ll1 Tish Ralph RN RN db
[2023-01-18] MEDS ORDERED: CIPROFLOXACIN HCL 500 MG TAB ONE (17:24)
[2023-01-18] MEDS ORDERED: KETOROLAC 30 MG/ML INJ ONE (17:24)
[2023-01-18 19:43] VITALS: TEMP 98.4
[2023-01-18 19:50] VITALS: BP 137/71; O2SAT 97
== END 2023-01-18 17:30 | disposition home or self-care (01) ==
LOC: ER 14:49
DX: N39.0 Urinary tract infection, site not specified (principal)
CPT/HCPCS: 36415; 74177; 80048; 81001; 85025; 87077; 87086; 87088; 87186; 96360; 96361; 99284; Q9967

== ENCOUNTER 2024-01-15 07:47 | Emergency (ER) | payer OTHER, SELFPAY ==
[2024-01-15] MEDS ORDERED: KETOROLAC 30 MG/ML INJ ONE (08:19)
[2024-01-15] MEDS ORDERED: MORPHINE 4 MG/ML SYR ONE (08:20)
[2024-01-15] MEDS ORDERED: NA CHLORIDE 0.9% 1,000 ML ONE (08:20)
[2024-01-15 08:32] LABS: Absolute Basophils 0.1 K/uL (0-0.5); Absolute Eosinophils 0.1 K/uL (0-0.5); Absolute Lymphocytes (CBC) 1.6 K/uL (0.7-4.9); Absolute Monocytes 0.6 K/uL (0.1-1.3); Absolute Neutrophil 8.1 K/uL (1.8-8.0); Basophils % 0.7 % (0-1.3); Eosinophils % 1.4 % (0-4.4); Hematocrit 44.7 % (36.0-45.0); Hemoglobin 15.1 g/dL (12.0-15.0); Lymphocytes % 15.6 % (15.3-44.8); MCHC 33.7 g/dL (32.0-36.0); MCV 89.1 fL (80-100); MPV 8.4 fL (7.6-11.3); Monocytes % 5.8 % (3.3-12.3); Neutrophils % 76.5 % (41.7-73.7); Platelets 255 thou/uL (152-406); RBC Red Blood Cell Count 5.02 M/uL (3.86-4.86); Red Cell Distribution Width 13.3 % (12.1-15.2)
--- NOTE | 2024-01-15 08:42 | RAD REPORT ---
EXAMINATION: CT ABDOMEN AND PELVIS WITHOUT CONTRAST CLINICAL INDICATION: Abdominal pain TECHNIQUE: CT abdomen and pelvis was performed, as per department protocol. IV contrast and oral was not administered.Axial, sagittal and coronal reconstructions were obtained. One or more of the following dose reduction techniques were used: Automated exposure control, adjustment of the mA and/o r kV according to the patient size, and/or iterative reconstruction. Unless otherwise specified, incidental findings do not require dedicated imaging follow-up. [id number]. COMPARISON: 2022 FINDINGS: The lack of intravenous and oral contrast limits evaluation of solid organs, vessels and bowel. 6 mm calculus left kidney. No hydronephrosis. No right renal calculus. A ureteral calculus not seen. No bladder calculus. The wall of the left renal pelvis and left ureter appears thickened. Small left renal cyst. Liver is moderately enlarged with a nodular contour. Cholecystectomy. Spleen, pancreas and adrenals grossly normal. Normal appendix. No evidence of diverticulitis 4 cm left ovarian cyst mildly decreased in size likely benign. No significant free fluid. IMPRESSION: 6 mm nonobstructing left renal calculus The wall of the left renal pelvis and left ureter appears thickened which may indicate an ascending u rinary tract infection Moderate hepatomegaly. Nodular hepatic contour indicates chronic disease.
[2024-01-15 08:47] LABS: Albumin 3.7 g/dL (3.4-5.0); Albumin/Globulin Ratio 0.8 (1.1-1.8); Anion Gap 8.9 mEq/L (5.0-15.0); Bilirubin Total 0.4 mg/dL (0.2-1.0); Globulin 4.6 g/dL (2.3-3.5); Potassium 3.9 mEq/L (3.5-5.1); Protein, Total 8.3 g/dL (6.4-8.2)
[2024-01-15 09:17] LABS: Specific Gravity 1.014 (1.005-1.030); Transitional Epithelial <5 /HPF (None Seen); Urine Bacteria 20-50 /HPF (<20); Urine Bilirubin NEGATIVE (Negative); Urine Blood Negative (Negative); Urine Clarity Extremely Turbid (Clear); Urine Color Light-Yellow (Yellow); Urine Culture Reflex Order REFLEXED; Urine Glucose NEGATIVE (Negative); Urine Ketones NEGATIVE (Negative); Urine Microscopic Reflex YN ORDER UMIC; Urine Mucus Slight /HPF (None Seen); Urine Nitrite 1+ (Negative); Urine Protein NEGATIVE (Negative); Urine Urobilinogen Normal (Normal); Urine WBC >50 /HPF (<5); Urine WBC Clump Rare /HPF (None Seen); Urine Yeast (Budding) Occasional /HPF (None Seen); Urine pH 6.5 (5.0-7.0)
--- NOTE | 2024-01-15 10:28 | EDPHYS ---
Physician Documentation [facility] Name: Nany Mary Age: 53 yrs Sex: Female : 1970 Arrival Date: 01/15/2024 Time: 07:47 Bed 8 Private MD: ED Physician Alexandro Enciso HPI: 01/14 08:29 This 53 yrs old Female presents to ER via Ambulatory with complaints of Flank Pain. ms3 08:29 Nany Mary, a 53-year-old female, presents to the emergency department with severe ms3 flank pain, which she rates as 8 out of 10. She describes the pain as worse than her previous episodes of kidney stones. The pain is not radiating. She reports accompanying symptoms of nausea but no vomiting or diarrhea. She is feeling very fatigued. The pain worsens when lying down and is somewhat relieved by a hot bath. She has tried ibuprofen for the pain, which has not provided relief.. Historical: - Allergies: 07:57 No Known Allergies; iw - PMHx: 07:57 ADD/ADHD; Chronic Pancreatitis; Depression; HEP C; remission; left leg DVT; liver and iw pancrease laceration when she was 10; - PSHx: 07:57 carpal tunnel; hysterectomy; renal stent; tubal ligation; iw - Immunization history:: Adult Immunizations up to date. - Infectious Disease History:: Denies. - Social history:: Smoking status: Patient reports the use of cigarette tobacco products. ROS: 08:29 Constitutional: Negative for fever, and chills. Neck: Negative for injury, pain, and ms3 swelling, Cardiovascular: Negative for chest pain, and palpitations. Respiratory: Negative for shortness of breath, cough, wheezing, and pleuritic chest pain, 08:29 MS/Extremity: Negative for injury and deformity, Skin: Negative for injury, rash, and discoloration, 08:29 Abdomen/GI: Positive for abdominal pain, nausea, Exam: 08:29 Constitutional: This is a well developed, well nourished patient who is awake, alert, ms3 and in no acute distress. Head/Face: Normocephalic, atraumatic. Cardiovascular: Regular rate and rhythm with a normal S1 and S2. No gallops, murmurs, or rubs. Normal PMI, no JVD. No pulse deficits. Respiratory: Lungs have equal breath sounds bilaterally, clear to auscultation and percussion. No rales, rhonchi or wheezes noted. No increased work of breathing, no retractions or nasal flaring. 08:29 Skin: Warm, dry with normal turgor. Normal color with no rashes, no lesions, and no evidence of cellulitis. 08:29 Abdomen/GI: Inspection: abdomen appears normal, Bowel sounds: normal, Palpation: moderate abdominal tenderness, in the right upper quadrant, Vital Signs: 07:56 BP 129 / 104; Pulse 96; Resp 18; Temp 97; Pulse Ox 100% ; Weight 63.5 kg; Height 5 ft. iw 1 in. ; Pain 8/10; 09:38 BP 117 / 75; Pulse 64; Resp 16; Pulse Ox 95% ; bp 10:30 BP 126 / 76; Pulse 66; Resp 16; Pulse Ox 99% on R/A; hb 10:41 BP 118 / 81; Pulse 61; Resp 16; Pulse Ox 99% ; bp 07:56 Body Mass Index 26.45 (63.50 kg, 154.94 cm) iw 07:56 Pain Scale: Adult iw MDM: 08:15 Medical Screening Exam initiated ms3 08:29 Differential diagnosis: nephrolithiasis, Appendicitis vs Abdominal pain. ms3 11:01 Data reviewed: vital signs, nurses notes, lab test result(s), radiologic studies, and ms3 as a result, I will discharge patient. I considered the following discharge prescriptions or medication management in the emergency department Medications were administered in the Emergency Department. See MAR. Care significantly affected by the following chronic conditions: Liver Disease. Counseling: I had a detailed discussion with the patient and/or guardian regarding the historical points, exam findings, and any diagnostic results supporting the discharge/admit diagnosis, lab results, radiology results, the need for outpatient follow up, to return to the emergency department if symptoms worsen or persist or if there are any questions or concerns that arise at home. Special discussion: I discussed with the patient/guardian in detail that at this point there is no indication for admission to the hospital. It is understood, however, that if the symptoms persist or worsen the patient needs to return immediately for re-evaluation. ED course: Discussed lab and imaging with patient. Patient to follow-up with primary care physician 2 to 3 days. Patient understands and agrees with plan. All questions were answered. Return precautions discussed include worsening symptoms, or any other concerns. On reevaluation patient symptoms are improved, patient is tolerating p.o., alert and orient x 4, no apparent distress, nontoxic-appearing, speaking full sentences, ambulatory in the emergency department.. 01/14 08:16 Order name: CBC with Diff; Complete Time: 08:34 ms3 01/14 08:16 Order name: CMP; Complete Time: 10:21 ms3 01/14 08:16 Order name: Lipase; Complete Time: 10:21 ms3 01/14 08:16 Order name: Urinalysis w/ reflexes; Complete Time: 10:21 ms3 01/14 09:21 Order name: Urine Culture EDMS 01/14 08:16 Order name: CT Abd/Pelvis - Without Contrast; Complete Time: 08:47 ms3 01/14 08:16 Order name: IV Saline Lock; Complete Time: 08:18 ms3 01/14 08:16 Order name: Labs collected and sent; Complete Time: 08:25 ms3 01/14 10:34 Order name: PO challenge; Complete Time: 10:34 hb Administered Medications: 08:25 Drug: TORadol - Ketorolac IVP 15 mg IVP once Route: IVP; Site: right antecubital; hb 09:00 Follow up: Response: No adverse reaction hb 08:25 Drug: morphine IVP or IV 4 mg IVP once over 4 mins Route: IVP; Infused Over: 4 mins; hb Site: right antecubital; 09:00 Follow up: Response: No adverse reaction hb 08:25 Drug: NS 0.9% IV 1000 ml IV at 1 bolus Per protocol; to be given as a bolus over 60 hb minutes Route: IV; Rate: 1 bolus; Site: right antecubital; 09:35 Follow up: Response: No adverse reaction; IV Status: Completed infusion; IV Intake: hb 1000ml Disposition Summary: 01/15/24 10:27 Discharge Ordered Notes: Location: Home ms3 Condition: Stable ms3 Diagnosis - UTI/ Urinary tract infection, site not specified ms3 - Right flank pain ms3 - Left kidney stone without hydronephrosis ms3 Followup: ms3 - With: Kumar Meeks, DO - When: 1 - 2 days - Reason: Recheck today's complaints Discharge Instructions: - Discharge Summary Sheet ms3 - Flank Pain, Adult ms3 - Urinary Tract Infection, Adult ms3 Forms: - Medication Reconciliation Form ms3 - Antibiotic Education ms3 - Prescription Opioid Use ms3 - Patient Portal Instructions ms3 - Leadership Thank You Letter ms3 Prescriptions: - cefpodoxime 200 mg Oral tablet - take 2 tablets ORAL route every 12 hours with food; 20 tablet; Refills: 0, ms3 Product Selection Permitted Signatures: Dispatcher [employer] Araceli Roldan RN RN Ann Sims RN RN Alexandro Enciso DO DO ms3 Corrections: (The following items were deleted from the chart) 07:58 07:57 Allergies: Morphine; [facility] 07:58 07:57 Allergies: PENICILLINS; [facility] 07:58 07:57 Allergies: Toradol; [facility] 08:17 08:17 Abdomen Pelvis Wo Con+CT.RAD.BRZ ordered. EDMS EDMS
--- NOTE | 2024-01-15 10:28 | ER ---
Nurse's Notes [facility] Name: Nany Mary Age: 53 yrs Sex: Female : 1970 Arrival Date: 01/15/2024 Time: 07:47 Bed 8 Private MD: Diagnosis: UTI/ Urinary tract infection, site not specified;Right flank pain;Left kidney stone without hydronephrosis Presentation: 01/14 07:56 Chief complaint: Patient states: right flank pain X 2 days, vomiting , urine has a foul iw odor to it. Coronavirus screen: At this time, the client does not indicate any symptoms associated with coronavirus-19. Ebola Screen: No symptoms or risks identified at this time. Onset of symptoms was January 13, 2024. 07:56 Method Of Arrival: Ambulatory iw 07:56 Acuity: ANTHONY 3 iw 08:28 Initial Sepsis Screen: Does the patient meet any 2 criteria? No. Patient's initial hb sepsis screen is negative. Does the patient have a suspected source of infection? No. Patient's initial sepsis screen is negative. Risk Assessment: Do you want to hurt yourself or someone else? Patient reports no desire to harm self or others. Historical: - Allergies: 07:57 No Known Allergies; iw - PMHx: 07:57 ADD/ADHD; Chronic Pancreatitis; Depression; HEP C; remission; left leg DVT; liver and iw pancrease laceration when she was 10; - PSHx: 07:57 carpal tunnel; hysterectomy; renal stent; tubal ligation; iw - Immunization history:: Adult Immunizations up to date. - Infectious Disease History:: Denies. - Social history:: Smoking status: Patient reports the use of cigarette tobacco products. Screenin:15 [facility] ED Fall Risk Assessment (Adult) History of falling in the last 3 months, hb including since admission No falls in past 3 months (0 pts) Confusion or Disorientation No (0 pts) Intoxicated or Sedated No (0 pts) Impaired Gait No (0 pts) Mobility Assist Device Used No (0 pt) Altered Elimination No (0 pt) Score/Fall Risk Level 0 - 2 = Low Risk Oriented to surroundings, Maintained a safe environment, Educated pt \T\ family on fall prevention, incl call for assistance when getting out of bed. Abuse screen: Denies threats or abuse. Denies injuries from another. Nutritional screening: No deficits noted. Tuberculosis screening: No symptoms or risk factors identified. Assessment: 08:15 General: Appears in no apparent distress. uncomfortable, Behavior is cooperative, hb restless. Pain: Pain currently is 8 out of 10 on a pain scale. Neuro: Level of Consciousness is awake, alert, obeys commands, Oriented to person, place, time, situation. Cardiovascular: Patient's skin is warm and dry. Respiratory: Respiratory effort is even, unlabored, Respiratory pattern is regular, symmetrical. GI: Reports upper abdominal pain. : No signs and/or symptoms were reported regarding the genitourinary system. EENT: No signs and/or symptoms were reported regarding the EENT system. Derm: Skin is pink, warm \T\ dry. Musculoskeletal: No signs and/or symptoms reported regarding the musculoskeletal system. 09:38 Reassessment: Patient appears in no apparent distress at this time. Patient is alert, bp oriented x 3, equal unlabored respirations, skin warm/dry/pink. 10:35 Reassessment: Patient appears in no apparent distress at this time. Patient and/or hb family updated on plan of care and expected duration. Pain level reassessed. Patient is alert, oriented x 3, equal unlabored respirations, skin warm/dry/pink. Vital Signs: 07:56 BP 129 / 104; Pulse 96; Resp 18; Temp 97; Pulse Ox 100% ; Weight 63.5 kg; Height 5 ft. iw 1 in. ; Pain 8/10; 09:38 BP 117 / 75; Pulse 64; Resp 16; Pulse Ox 95% ; bp 10:30 BP 126 / 76; Pulse 66; Resp 16; Pulse Ox 99% on R/A; hb 10:41 BP 118 / 81; Pulse 61; Resp 16; Pulse Ox 99% ; bp 07:56 Body Mass Index 26.45 (63.50 kg, 154.94 cm) iw 07:56 Pain Scale: Adult iw ED Course: 07:52 Patient arrived in ED. mg5 07:54 Alexandro Enciso DO is Attending Physician. ms3 07:57 Triage completed. iw 07:57 Bowen Walters, RN is Primary Nurse. bp 07:58 Arm band placed on. iw 08:15 Patient has correct armband on for positive identification. Provided Education on: use hb of call light . 08:23 Inserted saline lock: 20 gauge in right antecubital area, using aseptic technique. hb Blood collected. Flushed with 10 mL NS. 08:23 Initial lab(s) drawn, by me, sent to lab. hb 08:26 Patient moved to radiology via stretcher. hb 08:26 CMP Sent. hb 08:26 CBC with Diff Sent. hb 08:26 Lipase Sent. hb 08:28 CT Abd/Pelvis - Without Contrast In Process Unspecified. EDMS 10:26 Kumar Meeks DO is Referral Physician. ms3 10:41 No provider procedures requiring assistance completed. IV discontinued, intact, bp bleeding controlled, No redness/swelling at site. Pressure dressing applied. Administered Medications: 08:25 Drug: TORadol - Ketorolac IVP 15 mg IVP once Route: IVP; Site: right antecubital; hb 09:00 Follow up: Response: No adverse reaction hb 08:25 Drug: morphine IVP or IV 4 mg IVP once over 4 mins Route: IVP; Infused Over: 4 mins; hb Site: right antecubital; 09:00 Follow up: Response: No adverse reaction hb 08:25 Drug: NS 0.9% IV 1000 ml IV at 1 bolus Per protocol; to be given as a bolus over 60 hb minutes Route: IV; Rate: 1 bolus; Site: right antecubital; 09:35 Follow up: Response: No adverse reaction; IV Status: Completed infusion; IV Intake: hb 1000ml Medication: 08:15 VIS not applicable for this client. hb Intake: 09:35 IV: 1000ml; Total: 1000ml. hb Outcome: 10:27 Discharge ordered by MD. ms3 10:41 Discharged to home ambulatory, bp 10:41 Condition: stable 10:41 Discharge instructions given to patient, Instructed on discharge instructions, follow up and referral plans. medication usage, Demonstrated understanding of instructions, follow-up care, medications, Prescriptions given X 1, 10:42 Patient left the ED. bp Signatures: Dispatcher [employer] EDMS Araceli Ro, CARIDAD MCLEAN iw Ann Sims RN RN Bowen Kohli RN RN Alexandro Jimenez DO DO ms3 Cristina Mojica mg5 Corrections: (The following items were deleted from the chart) 07:58 07:57 Allergies: Morphine; iw iw 07:58 07:57 Allergies: PENICILLINS; iw iw 07:58 07:57 Allergies: Toradol; iw iw
[2024-01-15 11:19] VITALS: TEMP 97
[2024-01-15 11:30] VITALS: O2SAT 99
[2024-01-15 11:31] VITALS: BP 118/81
== END 2024-01-15 10:42 | disposition home or self-care (01) ==
LOC: ER 07:47
DX: N39.0 Urinary tract infection, site not specified (principal); N20.0 Calculus of kidney
CPT/HCPCS: 96361; 87088; 85025; 81001; 87086; 36415; 87077; 87186; 83690; 80053; 74176; 96375; 96374; 99284; J7030